=== PATIENT | male | born 1950 | race Caucasian/White ===

== ENCOUNTER 2018-03-14 17:46 | Emergency (ER) | payer MEDICARE, BC, SELFPAY ==
[2018-03-14 17:47] VITALS: BP 164/94; PULSE 65; RESP 18; TEMP 37.1; O2SAT 97; BMI 43.7
--- NOTE | 2018-03-14 18:19 | CT_ITS ---
STUDY: CT ABDOMEN AND PELVIS WITHOUT CONTRAST REASON FOR EXAM: Male, 67 years old. Right flank pain, status post colectomy RADIATION DOSAGE (If Supplied By Facility): CTDIvol = ( 30.39 ) mGy, DLP = ( 1571.52 ) mGycm TECHNIQUE: Transaxial images were obtained from the dome of the diaphragm to the symphysis pubis without oral contrast, and without intravenous contrast. Sagittal and coronal images were reconstructed. Individualized dose optimization techniques were used for this CT. COMPARISON: None. FINDINGS: There is a 5 mm right lower lobe nodule axial image 1 the heart size is within normal limits. Coronary arterial calcifications are seen. There is a large epicardial fat pad. Normal liver. Normal gallbladder and extrahepatic biliary system. Normal spleen. Normal pancreas. Normal bilateral adrenal glands. There is a 1.5 cm right renal cyst. Right renal vascular calcifications are present. There is right perirenal fatty stranding. There is no right hydronephrosis. There is slight prominence of the right ureter to the level of the UVJ. No obstructing calculus was identified. Left renal vascular calcifications are present. There are several additional nonobstructing left renal calculi measuring up to 4 mm. Normal visualized stomach. Normal small intestine. There is scattered colonic diverticuli with no evidence of associated diverticulitis. There is non-visualization of the appendix. An aortoiliac endograft is present. There is aneurysmal dilatation of the infrarenal abdominal aorta measuring up to 5.9 cm in diameter. There is no evidence of leakage. Normal inferior vena cava. Normal retroperitoneum. Normal urinary bladder. Prostatic calcifications are present. The seminal vesicles and seminal vesicle angles appear normal. There are bilateral fat-containing inguinal hernias, left side larger than right. There is a small fat-containing umbilical hernia. There are diffuse degenerative changes of the visualized thoracolumbar spine. CT/Abdomen/Pelvis without Cont IMPRESSION: 1. 1.5 cm right renal cyst. Right renal vascular calcifications are present. There is right perirenal fatty stranding. There is slight prominence of the right ureter to the level of the UVJ. Nonobstructing calculus was identified. 2. Several nonobstructing left renal calculi measuring up to 4 mm. 3. Scattered colonic diverticuli with no evidence of associated diverticulitis. 4. Infrarenal abdominal aortic aneurysm measuring up to 5.9 cm in diameter. There is an aortoiliac endograft. There is no evidence of aneurysmal leakage. 5. Prostatic calcifications. 6. Bilateral fat-containing inguinal hernias, as well as small fat-containing umbilical hernia. 7. Is no evidence of free intra-abdominal or intrapelvic air or fluid. Electronically Signed: Krishna Quiñones MD at 19:10 EDT , Service support ,
[2018-03-14] MEDS: Ondansetron 4 MG/2 ML Vial IV (18:25)
[2018-03-14] MEDS: morphine 8 MG/ML Syringe IV (18:25)
[2018-03-14] MEDS: 0.9% Normal Saline 1,000 ML 1000 ML IV (18:26)
[2018-03-14 18:32] LABS: Bacteria 0 SEEN /hpf (None Seen); Mucous, Urine 0 SEEN /hpf (<or=2+); Red Blood Cells-Urine 0 SEEN /hpf (0-5); White Blood Cells 0 SEEN /hpf (0-5)
[2018-03-14 18:35] LABS: Absolute Lymphocyte Count 1.33 X10^3/ul (0.83-4.51); Absolute Neutrophil Count 7.1 X10^3/uL (2.0-7.7); Basophil# 0.03 X10^3/uL; Basophil% 0.3 % (0-1); Eosinophil# 0.25 X10^3/uL; Eosinophils% 2.6 % (0-5); Hematocrit 43.2 % (40-54); Hemoglobin 14.1 g/dl (13.0-16.5); Lymphocyte # 1.33 X10^3/ul (4.0); Lymphocyte % 14.1 % (19-41); Mean Corp Hgb Conc 32.6 g/gl (32-36); Mean Corpuscular Volume 88.9 fL (80-94); Monocyte# 0.76 X10^3/uL; Monocyte% 8.1 % (0-10); Neutrophil # 7.06 X10^3/uL (2.7-7.7); Neutrophil % 74.8 % (47-70); POSITIVE COUNT NO; POSITIVE DIFFERENTIAL NO; POSITIVE MORPHOLOGY NO; Platelet Count 258 K/mm3 (150-450); RBC Distribution Width CV 13.6 % (11.6-14.6); RBC Distribution Width SD 44.3 fl (35.1-43.9); Red Blood Count 4.86 M/mm3 (4.6-6.2); White Blood Count 9.4 K/mm3 (4.4-11.0)
[2018-03-14 18:44] LABS: Color, Urine Yellow (Yellow); Glucose, Dipstick Normal (Normal); Ketone-Dipstick Negative (Negative); Leukocyte Esterase-Dipstick Negative /ul (Negative); Nitrite-Dipstick Negative (Negative); Occult Blood-Urine Negative /ul (Negative); Protein-Dipstick 30 mg/dl (Negative); Urine Bilirubin Dipstick Negative (Negative); Urine Clarity Sl. Cloudy (Clear); Urine Urobilinogen Normal (Normal)
[2018-03-14 18:45] LABS: AST(SGOT) 14 U/L (15-37); Alanine Aminotransfer ALT/SGPT 15 U/L (16-61); Albumin, Serum 3.8 g/dL (3.2-5.0); Alkaline Phosphatase 57 U/L (45-117); Anion Gap 8 (5-15); BUN 33 mg/dL (7-18); BUN/Creat Ratio 19.4 RATIO (10-20); Bilirubin, Direct 0.08 mg/dL (0.00-0.30); Calcium,Total 9.5 mg/dL (8.5-10.1); Chloride 104 mmol/L (98-107); EST Glomerular Filtration Rate 43 mL/min (>60); Est Glom Filt Rate - Afr Amer 52 mL/min (>60); Estimated Creatinine Clearance 44.13 ml/min; Globulin 3.8 g/dL (2.2-4.2); Glucose 139 mg/dL (74-106); Lipase 156 U/L (73-393); Potassium 3.9 mmol/L (3.5-5.1); Protein, Total 7.6 g/dL (6.4-8.2); Sodium Level 139 mmol/L (136-145)
[2018-03-14 19:06] LABS: Squamous Epithelial Cells - UA 0-5 SEEN /hpf (0-5)
--- NOTE | 2018-03-14 20:02 | ED.VISSUMM ---
- ER Visit Summary Date of Service: 03/14/18 Chief Complaint: Right flank pain History of Present Illness: The patient is a 67 M history of CAD, quintuple bypass, syi-sdmrxfy-zhjrqdkex diabetes failure and prior diverticulitis. He has had a prior AAA that was stented. Complaining of right flank pain today around 1530. Associated nausea no vomiting or diarrhea. No fever. No dysuria. No abdominal or flank trauma. States pains in his right flank radiating to his groin. Physical Examination: Older male vital signs are stable afebrile. He does not look septic or toxic. He is complaining of right flank pain. HEENT exam unremarkable. Lungs clear to auscultation bilaterally. Heart regular rate and rhythm no murmur. Abdomen soft nondistended normal bowel sounds. No peritoneal signs. Very minimal right flank tenderness. No signs of obstruction. No hernias or masses. He is moving all 4 extremities are neurovascular intact. Back is nontender. Neurologically is awake and alert without focal motor deficits. Test Results: CBC normal. Chemistries unremarkable except for creatinine of 1.7 and BUN of 33. I do not have any old labs available for comparison I discussed the creatinine level with the patient and he will follow-up with his primary care physician or [facility] to see what his prior creatinine levels were. Liver enzymes normal. Lipase normal. UA normal. No signs of infection or blood. CT flank was obtained they do not see an obvious kidney stone. He has a known AAA with the graft but there is no leakage. His right ureter as prominence at the right UVJ but they did not see a specific stone. In light that is pain-free now he may have passed a kidney stone is now in the bladder. That has not been identified. Emergency Department Course and Treatment: He was treated with IV fluids times a liter morphine and Zofran. On repeat exam at both 1920 100 he is completely pain-free. He did urinate in the toilet and it was blood-tinged. Treatment Plan: [place] home pack for pain. Patient will be treated as a passed kidney stone. Disposition: Discharge Impression: Acute right flank pain secondary to suspected passed ureteral calculi. Known history of AAA with stent History of zcy-lbwhzdi-wetggqthc diabetes This note was generated with [employer] dictation software. It may contain incorrect words, spelling, and punctuation that were not noted in review of the chart prior to signing ED Disposition - Plan for ED Patient: Chief Complaint: Flank Pain Referrals: Brad Renner MD [Primary Care Provider] -
--- NOTE | 2018-03-14 20:05 | ED.DCSUM_ITS ---
- ER Visit Summary Date of Service: 03/14/18 Chief Complaint: Right flank pain History of Present Illness: The patient is a 67 M history of CAD, quintuple bypass, wwx-khczzcn-lksfqlenc diabetes failure and prior diverticulitis. He has had a prior AAA that was stented. Complaining of right flank pain today around 1530. Associated nausea no vomiting or diarrhea. No fever. No dysuria. No abdominal or flank trauma. States pains in his right flank radiating to his groin. Physical Examination: Older male vital signs are stable afebrile. He does not look septic or toxic. He is complaining of right flank pain. HEENT exam unremarkable. Lungs clear to auscultation bilaterally. Heart regular rate and rhythm no murmur. Abdomen soft nondistended normal bowel sounds. No peritoneal signs. Very minimal right flank tenderness. No signs of obstruction. No hernias or masses. He is moving all 4 extremities are neurovascular intact. Back is nontender. Neurologically is awake and alert without focal motor deficits. Test Results: CBC normal. Chemistries unremarkable except for creatinine of 1.7 and BUN of 33. I do not have any old labs available for comparison I discussed the creatinine level with the patient and he will follow-up with his primary care physician or [facility] to see what his prior creatinine levels were. Liver enzymes normal. Lipase normal. UA normal. No signs of infection or blood. CT flank was obtained they do not see an obvious kidney stone. He has a known AAA with the graft but there is no leakage. His right ureter as prominence at the right UVJ but they did not see a specific stone. In light that is pain-free now he may have passed a kidney stone is now in the bladder. That has not been identified. Emergency Department Course and Treatment: He was treated with IV fluids times a liter morphine and Zofran. On repeat exam at both 1920 100 he is completely pain-free. He did urinate in the toilet and it was blood-tinged. Treatment Plan: [place] home pack for pain. Patient will be treated as a passed kidney stone. Disposition: Discharge Impression: Acute right flank pain secondary to suspected passed ureteral calculi. Known history of AAA with stent History of unz-ubdamkw-xhwcgcnyr diabetes This note was generated with [employer] dictation software. It may contain incorrect words, spelling, and punctuation that were not noted in review of the chart prior to signing ED Disposition - Plan for ED Patient: Chief Complaint: Flank Pain Referrals: Brad Renner MD [Primary Care Provider] -
--- NOTE | 2018-03-14 20:06 | ED.DEP ---
ED Disposition - Plan for ED Patient: Disposition: Home or Assisted Living Chief Complaint: Flank Pain Instructions: ED Flank Pain Uncertain Cause Referrals: Brad Renner MD [Primary Care Provider] - As soon as possible Additional Instructions: [place] as needed for pain. Plenty of fluids and rest. No obvious findings on your CAT scan. This may be secondary to a small stone that you passed into the bladder we could not identify. Also your creatinine today was 1.7. I do not have any old levels compare that to you need to follow-up your primary care physician with the [facility] to see where that is compared to your prior creatinine levels.
[2018-03-14] MEDS: HYDROcodone Bitartrate/Apap 5/325 Tablet PO (20:17)
[2018-03-14 20:20] VITALS: BP 162/78; PULSE 79; RESP 18; O2SAT 93
== END 2018-03-14 20:21 | disposition home or self-care (01) ==
PROVIDERS: Emergency Provider Emergency Medicine; Family Provider Family Medicine; PCP Family Medicine
DX: N20.1 Calculus of ureter (principal); N28.9 Disorder of kidney and ureter, unspecified; E11.9 Type 2 diabetes mellitus without complications; I25.10 Atherosclerotic heart disease of native coronary artery without angina pectoris; Z95.1 Presence of aortocoronary bypass graft; Z95.828 Presence of other vascular implants and grafts; Z86.79 Personal history of other diseases of the circulatory system; Z79.84 Long term (current) use of oral hypoglycemic drugs; Z79.82 Long term (current) use of aspirin; Z79.01 Long term (current) use of anticoagulants; Z79.899 Other long term (current) drug therapy
CPT/HCPCS: 74176; 80048; 80076; 81001; 83690; 85025; 96361; 96374; 96375; 99284; J7030; A4216; J2405

== ENCOUNTER 2018-11-06 01:19 | Emergency (ER) | payer MEDICARE, BC, SELFPAY ==
[2018-11-06 01:20] VITALS: BP 177/97; PULSE 71; RESP 18; TEMP 36.7; O2SAT 95; BMI 43.7
--- NOTE | 2018-11-06 01:41 | ED.VISSUMM ---
- ER Visit Summary Date of Service: 11/06/18 Chief Complaint: [] Complaining of flank pain History of Present Illness: The patient is a 68 M left-sided flank pain that started at 8:30 PM yesterday gradual onset continuous. It is a sharp pain. Current severity is moderate. No nausea vomiting or diarrhea. No home treatment. He was seen for similar pain in February of last year. He had labs and a CAT scan done. There is no kidney stone but they suspect that he passed one at that time as his pain resolved in the department. He has a history of AAA that is stented in the past. He had a partial sigmoidectomy secondary to diverticulitis. His appendix has been removed. Physical Examination: [] Vital signs reviewed General: Well-nourished well-developed Head: Normocephalic atraumatic Eyes: Pupils equal round and reactive to light extraocular movements intact ENT: TMs clear no hemotympanum no trauma Neck: Nontender full range of motion Cardiovascular: Regular rate rhythm no murmurs normal S1-S2 Respiratory: No distress clear to auscultation bilaterally chest nontender Abdomen: Soft nontender nondistended normal bowel sounds no masses Back: Nontender no CVA tenderness Extremities: Nontender active range of motion ?4 extremities no trauma Skin: Normal color no trauma Neuro alert oriented cranial nerves II through XII intact normal strength sensation reflexes Test Results: [] Emergency Department Course and Treatment: [] IV established patient given morphine and Zofran IV fluids. Lab work and CT abdomen pelvis obtained CT abdomen pelvis shows a left-sided kidney stone at the ureterovesical junction with mild left hydronephrosis. Lab work obtained shows blood in his urine with 25-50 RBCs with no infection. Creatinine is 1.4 down from 1.7. Patient felt better after treatment. Given a second dose of morphine. Pain is under control. He will be discharged to follow-up with urology. I do not think he needs to be admitted. He should pass this as it is right in his bladder. Will be given Percocet for home as well as Zofran. His AAA stent remains intact Treatment Plan: [] Disposition: [] Impression: [] Left-sided kidney stone with hydronephrosis This note was generated with [employer] dictation software. It may contain incorrect words, spelling, and punctuation that were not noted in review of the chart prior to signing ED Disposition - Plan for ED Patient: Referrals: Brad Renner MD [Primary Care Provider] -
[2018-11-06 01:51] LABS: Absolute Lymphocyte Count 0.94 X10^3/ul (0.83-4.51); Absolute Neutrophil Count 4.5 X10^3/uL (2.0-7.7); Basophil# 0.04 X10^3/uL; Basophil% 0.6 % (0-1); Eosinophil# 0.24 X10^3/uL; Eosinophils% 3.8 % (0-5); Hematocrit 44.1 % (40-54); Hemoglobin 14.5 g/dl (13.0-16.5); Lymphocyte # 0.94 X10^3/ul (4.0); Lymphocyte % 14.9 % (19-41); Mean Corp Hgb Conc 32.9 g/gl (32-36); Mean Corpuscular Hgb 29.5 pg (27.0-32.0); Mean Corpuscular Volume 89.6 fL (80-94); Mean Platelet Vol. 10.2 fl (6.2-12.0); Monocyte% 9.5 % (0-10); Neutrophil # 4.48 X10^3/uL (2.7-7.7); POSITIVE COUNT NO; POSITIVE DIFFERENTIAL NO; POSITIVE MORPHOLOGY NO; Platelet Count 232 K/mm3 (150-450); RBC Distribution Width CV 13.5 % (11.6-14.6); RBC Distribution Width SD 43.2 fl (35.1-43.9); Red Blood Count 4.92 M/mm3 (4.6-6.2); White Blood Count 6.3 K/mm3 (4.4-11.0)
[2018-11-06] MEDS: Morphine 4 MG/ML Syringe IV ×2 (01:52→03:10)
[2018-11-06] MEDS: 0.9% Normal Saline 1,000 ML 250 ML IV (01:52)
[2018-11-06] MEDS: Ondansetron 4 MG/2 ML Vial IV (01:52)
[2018-11-06 02:00] LABS: Anion Gap 6 (5-15); BUN 18 mg/dL (7-18); BUN/Creat Ratio 12.2 RATIO (10-20); Calcium,Total 8.9 mg/dL (8.5-10.1); Chloride 110 mmol/L (98-107); Creatinine, Serum 1.48 mg/dL (0.70-1.30); EST Glomerular Filtration Rate 50 mL/min (>60); Est Glom Filt Rate - Afr Amer 61 mL/min (>60); Estimated Creatinine Clearance 50.01 ml/min; Glucose 173 mg/dL (74-106); Potassium 3.9 mmol/L (3.5-5.1); Sodium Level 143 mmol/L (136-145)
--- NOTE | 2018-11-06 02:13 | ED.RN ---
pT WAS MEDICATED AT 0150. HOWEVER, PREVIOUS NURSE WAS STILL SIGNED IN BUT LEFT THE BUILDING. DIRECT SERVICE PROVIDER AWARE.
--- NOTE | 2018-11-06 02:30 | CT_ITS ---
STUDY: CT ABDOMEN AND PELVIS WITHOUT CONTRAST REASON FOR EXAM: Male, 68 years old. Right-sided abdominal pain. RADIATION DOSAGE (If Supplied By Facility): CTDIvol = ( 24.18 ) mGy, DLP = ( 1195.98 ) mGycm TECHNIQUE: Transaxial images were obtained from the dome of the diaphragm to the symphysis pubis without oral contrast, and without intravenous contrast. Sagittal and coronal images were reconstructed. Individualized dose optimization techniques were used for this CT. COMPARISON: CT scan 03/14/2018. FINDINGS: The visualized lung bases are unremarkable. The visualized portions of the heart are within normal limits. There are coronary artery calcifications. There is decreased attenuation of the liver consistent with steatosis. Normal gallbladder and extrahepatic biliary system. There is mild splenomegaly. Normal pancreas. There is a 1.3 cm, circumscribed, smooth, low attenuation right adrenal mass, consistent with an adrenal adenoma. Normal left adrenal gland. There are arteriovascular calcifications in both kidneys. There is a small right renal cyst. There is no demonstrated right urinary calculus or hydronephrosis. As seen on axial images 147-149 and sagittal images 105-106,, there is a 5 mm wide distal left ureteral calculus, approximately 3 cm ureterovesical junction. There is mild hydronephrosis of the left kidney. Normal visualized stomach. Normal small intestine. There are multiple colonic diverticula consistent with diverticulosis. There is non-visualization of the appendix. There is no evidence for appendicitis. There is an infrarenal abdominal aortic aneurysm with maximal AP and transverse diameters of 5.9 x 5.6 cm, not significantly different from the previous exam. There is an aortic-bilateral iliac artery stent. There are bilateral renal arterial stents.. Normal inferior vena cava. Normal retroperitoneum. Grossly normal urinary bladder. Evaluation of the urinary bladder is limited by nondistention.. There is a left inguinal hernia which contains fat, but no bowel. There are diffuse degenerative changes of the visualized lumbar spine. CT/Abdomen/Pelvis without Cont IMPRESSION: 5 mm wide distal left ureteral calculus near the UVJ. There is associated mild left hydronephrosis. No other evidence for acute pathology. Small right renal cyst. Previous placement of aortic-bilateral iliac artery stents for treatment of an infrarenal abdominal aortic aneurysm. The aneurysm is stable in size. Bilateral renal artery stents. Small right adrenal adenoma, stable in appearance. Fatty liver. Mild splenomegaly. Colonic diverticulosis, without evidence for acute diverticulitis. Electronically Signed: Adam Flores MD at 3:26 EST , Service support ,
[2018-11-06 02:51] LABS: Bacteria 0 SEEN /hpf (None Seen); Mucous, Urine 0 SEEN /hpf (<or=2+); Squamous Epithelial Cells - UA 0 SEEN /hpf (0-5)
[2018-11-06 02:52] LABS: Color, Urine Yellow (Yellow); Glucose, Dipstick 50 mg/dl (Normal); Ketone-Dipstick Negative (Negative); Leukocyte Esterase-Dipstick 25 /ul (Negative); Nitrite-Dipstick Negative (Negative); Occult Blood-Urine 250 /ul (Negative); Protein-Dipstick 30 mg/dl (Negative); Urine Bilirubin Dipstick Negative (Negative); Urine Clarity Cloudy (Clear); Urine Urobilinogen Normal (Normal)
[2018-11-06 03:00] LABS: Red Blood Cells-Urine 25-50 SEEN /hpf (0-5); White Blood Cells 0-5 SEEN /hpf (0-5)
--- NOTE | 2018-11-06 03:37 | ED.DEP ---
ED Disposition - Plan for ED Patient: Disposition: Home or Assisted Living Instructions: ED Stone Renal W Colic Prescriptions: Oxycodone HCl/Acetaminophen [Percocet 5/325] 1 - 2 tab PO Q6H PRN PRN 3 Days #12 tab PRN Reason: Pain Ondansetron [Zofran Odt] 4 mg PO Q8H PRN PRN #10 tab PRN Reason: Nausea Referrals: Brad Renner MD [Primary Care Provider] - Martin Cordon MD [STAFF PHYSICIAN] -
[2018-11-06 03:43] VITALS: BP 164/73; PULSE 61; PULSE 62; RESP 16; O2SAT 95
== END 2018-11-06 03:51 | disposition home or self-care (01) ==
PROVIDERS: Emergency Provider Emergency Medicine; Family Provider Family Medicine; PCP Family Medicine
DX: N13.2 Hydronephrosis with renal and ureteral calculous obstruction (principal); I25.10 Atherosclerotic heart disease of native coronary artery without angina pectoris; E11.9 Type 2 diabetes mellitus without complications; E66.9 Obesity, unspecified; Z68.41 Body mass index [BMI] 40.0-44.9, adult; Z95.1 Presence of aortocoronary bypass graft; Z79.82 Long term (current) use of aspirin; Z79.84 Long term (current) use of oral hypoglycemic drugs; Z79.899 Other long term (current) drug therapy; Z87.891 Personal history of nicotine dependence
CPT/HCPCS: 74176; 80048; 81001; 85025; 96361; 96374; 96375; 96376; 99282; J7030; A4216; J2405

== ENCOUNTER → 2018-11-28 12:28 | Outpatient (CLI) | payer MEDICARE, BC, SELFPAY ==
[2018-11-06 01:20] VITALS: BMI 43.7
--- NOTE | 2018-11-28 12:48 | CT_ITS ---
STUDY: CT ABDOMEN AND PELVIS WITHOUT CONTRAST REASON FOR EXAM: Male, 68 years old. Follow-up renal stone. RADIATION DOSAGE (If Supplied By Facility): CTDIvol = ( 24.17 ) mGy, DLP = ( 1237.68 ) mGycm TECHNIQUE: Transaxial images were obtained from the dome of the diaphragm to the symphysis pubis without oral contrast, and without intravenous contrast. Sagittal and coronal images were reconstructed. Individualized dose optimization techniques were used for this CT. COMPARISON: 11/06/2018. FINDINGS: The visualized lung bases are unremarkable. The visualized portions of the heart are within normal limits. Normal liver. Normal gallbladder and extrahepatic biliary system. Normal spleen. Normal pancreas. Normal bilateral adrenal glands. No acute abnormality of the right kidney. Stable right vascular calcifications. No hydronephrosis. Left kidney also shows vascular calcifications. There is a tiny nonobstructing stone in lower pole. It shows mild hydronephrosis and mild to moderate hydroureter down to a 5 mm left UVJ stone. This stone is further inferior than on the previous study. Evaluation of the GI tract is limited by absence of oral contrast. Cannot exclude stomach wall thickening. No dilated loops of bowel or evidence for obstruction. Cannot exclude segmental thickening of the renteria of the small or large bowel. Cannot exclude enteritis or colitis. Moderate diffuse fecal retention. Diverticulosis without definite diverticulitis. Appendix is not definitely seen. Stable appearance of treated abdominal aortic aneurysm. Normal inferior vena cava. Normal retroperitoneum. Normal urinary bladder. There are prostatic calcifications. There is a left-sided inguinal hernia containing adipose tissue. There are diffuse degenerative changes of the visualized lumbar spine. CT/Abdomen/Pelvis without Cont IMPRESSION: Previously described left ureteral calculus has migrated down to the left UVJ. Persistent mild left hydronephrosis and moderate left hydroureter. No other changes. Electronically Signed: Gold Khanna MD at 18:20 EST , Service support ,
== END ==
PROVIDERS: Family Provider Family Medicine; PCP Family Medicine; Referring Provider Family Medicine; Visit Provider Family Medicine
DX: N13.2 Hydronephrosis with renal and ureteral calculous obstruction (principal)
CPT/HCPCS: 74176

== ENCOUNTER → 2018-11-29 14:50 | Outpatient (CLI) | payer MEDICARE, BC, SELFPAY ==
[2018-11-06 01:20] VITALS: BMI 43.7
--- NOTE | 2018-11-29 14:50 | CALC_PTH ---
PATIENT: ABAD JUNE LOC: [facility] U#:[id number] AGE/SX: 74/M ROOM: RE11/29/[address]: Dr. Martin Cordon MD : 1950 BED: DIS: SPEC #: [id number] RECD: 11/30/18 08:58 STATUS: AALIYAH RICH #: [id number] LUCIE: 11/29/18 14:[address]: Martin Cordon DEPT: SURGICAL PATHOLOGY RECD BY: Chapincito Bullock ENTERED: 11/30/18 08:58 SP TYPE: Calculi OTHR DR: Dr. Brad Renner MD Tissues: CALCULI Procedures: Surgery Specimen Level I HEADER OPERATION: Stone analysis PRE-OP DIAGNOSIS: N20.0 TISSUE SUBMITTED: Calculus GROSS DIAGNOSIS Renal calculus, removal: Unremarkable calculus (gross diagnosis only). AM:bebeto 12/03/18 COMMENT The calculus is submitted in its entirety for chemical stone analysis. The results from this study will be reported separately. GROSS DESCRIPTION Received is one container labeled with the patient's name and designated calculus. The specimen consists of a single irregular fragment of roberts-yellow calculus measuring 0.5 x 0.3 x 0.2 cm. The specimen is submitted for stone analysis. / AM:bebeto 11/30/18 CPT: 68296
[2018-12-05 20:07] LABS: Ca Oxalate, Monohydrate 97 % (.); Size 6x5x3 mm (.)
== END ==
PROVIDERS: Family Provider Family Medicine; PCP Family Medicine; Referring Provider Urology; Visit Provider Urology
DX: N20.0 Calculus of kidney (principal)
CPT/HCPCS: 82360; 88300

== ENCOUNTER 2019-04-02 08:53 | Observation (INO) | payer MEDICARE, BC, SELFPAY ==
[2019-04-02] VITALS (14 sets, daily range): BP systolic 124–188; BP diastolic 66–93; PULSE 60–73; RESP 16–20; TEMP 36.2–36.9; O2SAT 95–98; BMI 43.7; BMI 45.3; BMI 45.4
--- NOTE | 2019-04-02 09:18 | ED.VISSUMM ---
- ER Visit Summary Date of Service: 04/02/19 Chief Complaint: Possible stroke History of Present Illness: The patient is a 68 M who presents the emergency after being sent here with a possible stroke. Patient states that on Monday he had a left temporal headache. He states he felt poorly all day. He had the noticed a facial droop drooling and occasionally difficulty speaking. He states that he has had a intermittent left temporal headache since then. His facial droop has not improved. Denies any visual arm or leg symptoms. No sensory changes. No rashes. He is on Plavix following a cardiac bypass surgery. He is also had AAA repair. He notes peripheral vascular disease. Physical Examination: Afebrile vital signs stable Gen: Well-nourished well-developed Head: Normocephalic atraumatic Eyes: Perrl EOMI ENT: TMs clear no rhinorrhea moist mucous membranes Neck: Supple no lymphadenopathy no JVD nontender CVS: Regular rate rhythm no murmurs normal S1-S2 Respiratory: No distress clear to auscultation bilaterally chest nontender Abdomen: Soft nontender nondistended normal bowel sounds no masses Back: Nontender Extremity: Nontender no edema Skin: Normal color no rash Neuro: alert orientated ?3 CN II-XII intact NIH score of 3. One point for dysarthria and 2 points for right sided facial droop. He can wrinkle his forehead. He can close his eyelids appropriately bilaterally. Psych: Normal affect normal mood Test Results: Basic labs are negative. Creatinine 1.52. CT head negative chest x-ray negative. Emergency Department Course and Treatment: Repeat examination the patient no longer has a facial droop. He is no longer drooling and he no longer has any difficulty clearing secretions. Difficult to say what this would have been to give him 3 days of a facial droop with no resolution. Will admit for observation. Impression: 1. Right facial droop This note was generated with [employer] dictation software. It may contain incorrect words, spelling, and punctuation that were not noted in review of the chart prior to signing ED Disposition - Plan for ED Patient: Referrals: Brad Renner MD [Primary Care Provider] -
--- NOTE | 2019-04-02 09:22 | CT_ITS ---
STUDY: CT BRAIN WITHOUT CONTRAST REASON FOR EXAM: Male, 68 years old. Right-sided facial droop RADIATION DOSAGE (If Supplied By Facility): CTDIvol = ( 44.99 ) mGy, DLP = ( 846.73 ) mGycm TECHNIQUE: Transaxial CT imaging of the brain was performed without administration of intravenous contrast material. Individualized dose optimization techniques were used for this CT. COMPARISON: No relevant priors. FINDINGS: Normal soft tissue structures. Normal calvarium. Normal size ventricles and extra-axial spaces for the patient's age. Normal white matter tracts of the cerebral hemispheres. Normal basal ganglia and thalami. Normal brainstem. Normal cerebellum. There is no intracranial hemorrhage. There are no findings of an acute ischemic infarction. Normal visualized paranasal sinuses. CT/Brain/Head without Contrast IMPRESSION: Normal unenhanced CT scan of the brain. Electronically Signed: Pérez Thomas MD at 10:34 EDT Tel , Service support ,
--- NOTE | 2019-04-02 09:22 | EKG12_ITS ---
Test Reason : HTN Blood Pressure : / mmHG Vent. Rate : 063 BPM Atrial Rate : 063 BPM P-R Int : 140 ms QRS Dur : 080 ms QT Int : 396 ms P-R-T Axes : 041 076 159 degrees QTc Int : 405 ms Normal sinus rhythm T wave abnormality, consider lateral ischemia Abnormal ECG Confirmed by ALISSON ZAMORA ([id number]), editor in chief CAMILLE SANDOVAL ([id number]) on 04/04/2019 1:45:40 PM Referred By: SKIP Confirmed By:ALISSON ZAMORA
--- NOTE | 2019-04-02 09:22 | RAD_ITS ---
STUDY: X-RAY CHEST REASON FOR EXAM: Male, 68 years old. Weakness. Coronary artery disease. TECHNIQUE: Single AP portable view of the chest. COMPARISON: None. FINDINGS: EKG electrodes are seen. The lungs are clear and expanded. There is no demonstrated pleural abnormality. Sternal cerclage wires and vascular clips are present from a prior sternotomy and coronary artery bypass graft procedure (CABG). Normal mediastinum and librado. Normal visualized pulmonary arteries. Normal visualized aortic arch and descending thoracic aorta. Normal visualized thoracic spine. Normal visualized ribs, clavicles, and shoulders. There is no demonstrated abnormality of the visualized soft tissue structures of the upper abdomen. RAD/Chest 1 View IMPRESSION: No acute abnormality is seen. Electronically Signed: Demetrio Phoenix, at 9:57 EDT , Service support ,
--- NOTE | 2019-04-02 09:24 | NURSING ---
NO OLD EKGS
[2019-04-02 10:15] LABS: Bedside Glucose 188 mg/dL (70-110)
[2019-04-02 10:23] LABS: International Normalized Ratio 0.9; Prothrombin Time (Protime)PT. 12.4 SECONDS (11.7-14.9)
[2019-04-02 10:24] LABS: Absolute Lymphocyte Count 0.75 X10^3/ul (0.83-4.51); Absolute Neutrophil Count 4.6 X10^3/uL (2.0-7.7); Basophil# 0.04 X10^3/uL; Basophil% 0.7 % (0-1); Eosinophil# 0.22 X10^3/uL; Eosinophils% 3.6 % (0-5); Hematocrit 45.9 % (40-54); Hemoglobin 14.9 g/dl (13.0-16.5); Lymphocyte # 0.75 X10^3/ul (4.0); Lymphocyte % 12.3 % (19-41); Mean Corp Hgb Conc 32.5 g/gl (32-36); Mean Corpuscular Hgb 28.4 pg (27.0-32.0); Mean Corpuscular Volume 87.4 fL (80-94); Mean Platelet Vol. 10.2 fl (6.2-12.0); Monocyte# 0.47 X10^3/uL; Monocyte% 7.7 % (0-10); Neutrophil # 4.63 X10^3/uL (2.7-7.7); Neutrophil % 75.5 % (47-70); Partial Thromboplast Time 27.3 Seconds (24.1-36.2); Platelet Count 236 K/mm3 (150-450); RBC Distribution Width CV 13.6 % (11.6-14.6); RBC Distribution Width SD 43.3 fl (35.1-43.9); Red Blood Count 5.25 M/mm3 (4.6-6.2); White Blood Count 6.1 K/mm3 (4.4-11.0)
[2019-04-02 10:25] LABS: POSITIVE COUNT NO; POSITIVE DIFFERENTIAL NO; POSITIVE MORPHOLOGY NO
[2019-04-02 10:36] LABS: Anion Gap 8 (5-15); BUN 17 mg/dL (7-18); BUN/Creat Ratio 11.2 RATIO (10-20); Calcium,Total 9.1 mg/dL (8.5-10.1); Chloride 107 mmol/L (98-107); Creatinine, Serum 1.52 mg/dL (0.70-1.30); EST Glomerular Filtration Rate 49 mL/min (>60); Est Glom Filt Rate - Afr Amer 59 mL/min (>60); Estimated Creatinine Clearance 48.69 ml/min; Glucose 190 mg/dL (74-106); Potassium 4.3 mmol/L (3.5-5.1); Sodium Level 144 mmol/L (136-145)
--- NOTE | 2019-04-02 11:01 | NURSING ---
DR HA IN WITH PATIENT
[2019-04-02] MEDS: Aspirin E.C. 325 MG Tablet PO (11:34)
--- NOTE | 2019-04-02 11:48 | HP.PCM_ITS ---
Problem List (1) CVA (cerebral vascular accident) Status: Acute History of Present Illness Date of Admission: 04/02/19 Chief Complaint: right facial weakness The patient is a 68 year old M presents with 2-day history of right facial droop. Also had slurred speech and drooling. Presented to the emergency room where he was noted to have right facial droop and underwent stroke work-up which was unremarkable. When checked on him again, the facial droop had resolved. Feels he just involves his lower face not forehead. Patient is never had a stroke before. Patient denied any right-sided weakness otherwise. [] Past Medical History Medical History: Medical History (Last Updated 04/02/19 @ 11:51 by Vishal Polanco DO) CAD (coronary artery disease) I25.10 DM2 (diabetes mellitus, type 2) E11.9 SACHA (obstructive sleep apnea) G47.33 PAD (peripheral artery disease) I73.9 HTN (hypertension) I10 Allergies Kkcmgwm-Alf-Tle Reductase Inhibitor Allergy (Verified 04/02/19 08:54) Pain in joints Home Medications: Ambulatory Orders Medication Instructions Recorded Aspirin E.C. [Ecotrin] 81 mg PO DAILY@0800 03/14/18 Cholecalciferol (Vitamin D3) 2,000 unit PO DAILY 03/14/18 [Vitamin D3] Cilostazol 100 mg PO BID 03/14/18 Clopidogrel Bisulfate [Plavix] 75 mg PO DAILY 03/14/18 Ezetimibe [Zetia] 10 mg PO DAILY 03/14/18 Fenofibrate Nanocrystallized 160 mg PO DAILY 03/14/18 [Triglide] Lisinopril [Zestril] 30 mg PO DAILY 03/14/18 Metoprolol Tartrate [Lopressor 50 mg PO BID 03/14/18 (Beta Abena)] Niacin 500 mg PO DAILY 03/14/18 Triamterene 37.5MG/Hctz 25MG 1 cap PO DAILY 03/14/18 [Dyazide (G)] metFORMIN HCl [Glucophage] 1,000 mg PO BIDCM 03/14/18 Tamsulosin HCl [Flomax] 0.4 mg PO DAILY 11/06/18 Surgical History: Surgical History (Last Updated 04/02/19 @ 11:52 by Vishal Polanco DO) Hx of CABG Z95.1 S/P peripheral artery angioplasty with stent placement Z95.820 Smoking Status: Former smoker Tobacco Use: Non-smoker Alcohol: Rare Drugs: None - *Family History Maternal History Items: - - no CVA Review of Systems Constitutional: Denies: Chills, Fever, Weight Change Eyes: Denies: Blurred vision, Double vision HEENT: Denies: Head Aches, Sinus Congestion, Sinus Drainage Cardiovascular: Denies: Chest Pain, Palpitations Respiratory: Denies: Cough, Shortness of breath at rest, Sputum production Gastrointestinal: Denies: Abdominal Pain, Nausea, Vomiting Genitourinary: Denies: Dysuria Musculoskeletal: Denies: Joint Pain, Joint Tenderness Skin: Denies: Rash, Wounds Neurological: Reports: Slurred speech, Focal weakness, Headaches. Denies: Numbness, Tingling Psychiatric: Denies: Anxiety, Depression Hematologic/ Lymphatic: Denies: Easy Bruising, Easy Bleeding, Hx of blood clot Comment: A 10 point review of systems were negative except as mentioned in the history of present illness and the other review of systems. VTE Information - Inpt Only VTE Present on Admission: No VTE Mechan Device Prophylaxis: None VTE Pharm Prophylaxis ordered?: No Reason prophylaxis not ordered:: Procedure Not Indicated Patient Problems: Active and Suspected Problems (Last Updated 04/02/19 @ 11:51 by Vishal Polanco DO) CVA (cerebral vascular accident) (Acute) - Physical Exam General: Alert, Oriented x3, Cooperative, No apparent distress HEENT: Atraumatic, PERRLA, EOMI, Normocephalic Oral: Moist Mucosa, No Gingival or Mucosal Lesions/ Ulcerations Neck: Negative Carotid Bruits, No Nodes, Thyroid Normal Size and Texture Lungs: Clear to auscultation, Normal air movement, No rhonchi, No wheeze, No rales Cardiovascular: Regular rate, Regular Rhythm, Normal S1, Normal S2, No murmurs Abdomen: Bowel Sounds Present, Soft, Non Tender, Non-Distended, No Hepato- splenomegaly Extremities: No edema, No Calf Tenderness Skin: No rashes, No breakdown Musculoskeletal: No Tenderness to Palpation of Joints or Extremities, No Muscle Wasting Neurological: Cranial nerves II-XII grossly intact, Neuro grossly intact, Motor Exam 5/5 strength throughout Psych/Mental Status: Normal Affect, Appropriate Vital Signs Temp Pulse Resp BP Pulse Ox 36.2 C L 73 16 160/85 H 95 04/02/19 08:55 04/02/19 10:07 04/02/19 10:07 04/02/19 10:07 04/02/19 10:07 Oxygen Delivery Method Room Air Weight: 138.346 kg Body Mass Index (BMI) 43.7 Finger Stick Blood Glucose 188 Laboratory Tests Past 24 Hrs 04/02/19 04/02/19 04/02/19 10:05 10:05 10:05 WBC 6.1 RBC 5.25 Hgb 14.9 Hct 45.9 MCV 87.4 MCH 28.4 MCHC 32.5 RDW 13.6 RDW Differential 43.3 Plt Count 236 MPV 10.2 Immature Gran % (Auto) 0.200 Neut % (Auto) 75.5 H Lymph % (Auto) 12.3 L [place] % (Auto) 7.7 Eos % (Auto) 3.6 Baso % (Auto) 0.7 Absolute Neuts (auto) 4.6 Absolute Lymphs (auto) 0.75 L Total Counted Not Reportable PT 12.4 INR 0.9 APTT 27.3 Sodium 144 Potassium 4.3 Chloride 107 Carbon Dioxide 29.0 Anion Gap 8 BUN 17 Creatinine 1.52 H Estim Creat Clear Calc 48.69 Est GFR (MDRD) Af Amer 59 L Est GFR (MDRD) Non-Af 49 L BUN/Creatinine Ratio 11.2 Glucose 190 H Calcium 9.1 Troponin I < 0.015 POC Glucose 04/02/19 10:12 POC Glucose 188 H EKG reviewed and showed normal sinus rhythm without acute changes Clinical Impression(s) from Imaging Studies Brain CT 04/02/19 09:22 IMPRESSION: Normal unenhanced CT scan of the brain. Electronically Signed: Pérez Thomas MD at 10:34 EDT Tel , Service support , Chest X-Ray 04/02/19 09:22 IMPRESSION: No acute abnormality is seen. Electronically Signed: Demetrio Phoenix, at 9:57 EDT , Service support , Assessment/Plan All Active Problems (Last Updated 04/02/19 @ 11:51 by Vishal Polanco DO) CVA (cerebral vascular accident) (Acute) 1. Suspected subacute stroke * Time of onset would have been March 31 when his symptoms began. Patient demonstrating no facial droop to me but that was witnessed by the emergency room physician and resolved when the emergency room physician rechecked on him * Given the patient's history of coronary disease and peripheral arterial disease, patient will undergo a stroke work-up: MRI of the brain, MRA of the head neck, echocardiogram, physical, occupational, speech therapies, neurology evaluation * Patient already on aspirin and clopidogrel. 2. CAD * Status post CABG * Continue with his home medications 3. PAD * Continue cilostazol 4. Diabetes mellitus type 2 * Continue metformin * Sliding scale insulin * Check an A1c 5. VTE prophylaxis: Low risk as patient is observation status. Case discussed with the patient's at bedside. Code Visit OBSV E&M: 55304 Initial observation care L3
--- NOTE | 2019-04-02 11:51 | NURSING ---
PCU RT FACIAL DROOP [facility]ELAND
--- NOTE | 2019-04-02 12:33 | ECHOCS_ITS ---
Reason For Study: TIA/CVA Procedure This was a 2D Doppler, Color Flow transthoracic echocardiogram. Technically difficult study due to patients body habitus. Contrast injection performed. Bubble study attempted twice with no success. The study was technically difficult. Contrast injection was performed. Exam performed portable in patient room. Left Ventricle Normal LV size. Left ventricular systolic function is normal. The estimated ejection fraction is 65 %. Diastolic function is indeterminate. No regional wall motion abnormalities noted. Right Ventricle The right ventricle is not well visualized. Atria Normal left atrium. Normal right atrium. No doppler evidence for ASD. Mitral Valve There is mild mitral annular calcification. Normal mitral valve. Tricuspid Valve The tricuspid valve is not well visualized. Trivial tricuspid valve insufficiency. Right ventricular systolic pressure estimated to be 34 mmHg. Aortic Valve Trisinus/trileaflet aortic valve. Mild focal aortic valve calcification. Pulmonic Valve The pulmonic valve is not well visualized. Trivial pulmonic valve insufficiency. Great Vessels The aortic root is not well visualized. Pericardium/Pleural No pericardial effusion. Medication Diluted definity 2ml given slow IV push to enhance endocardial definition. Performed a rapid injection of agitated mix of 9 cc saline and 1cc air to assess for atrial septal defect. MMode/2D Measurements & Calculations LVIDd: 5.0 cm IVSd: 1.1 cm LVOT diam: 2.0 cm LVIDs: 3.2 cm LVPWd: 1.2 cm FS: 35.2 % LVOT area: 3.1 cm2 Time Measurements MV dec time: 0.22 sec Doppler Measurements & Calculations MV E max aashish: 70.8 cm/sec Lat Peak E' Aashish: 11.2 cm/sec Med Peak E' Aashish: 7.7 cm/sec MV A max aashish: 86.4 cm/sec E/E' lat: 6.3 E/E' med: 9.1 MV E/A: 0.82 MV V2 max: 105.9 cm/sec MV P1/2t max aashish: 89.6 cm/sec Ao V2 max: 151.2 cm/sec MV max P.5 mmHg MV P1/2t: 133.6 msec Ao max P.2 mmHg MV V2 mean: 52.2 cm/sec MV mean P.3 mmHg MV dec slope: 196.3 cm/sec2 TATO(V,D): 2.1 cm2 MV V2 VTI: 38.1 cm MVA(P1/2t): 1.6 cm2 LV V1 max: 101.8 cm/sec PA V2 max: 120.4 cm/sec TR max aashish: 276.9 cm/sec LV V1 max P.1 mmHg TR max P.7 mmHg Interpretation Summary The study was technically difficult. Contrast injection was performed. Left ventricular systolic function is normal. The estimated ejection fraction is 65 %. There is mild mitral annular calcification. Trivial tricuspid valve insufficiency. Mild focal aortic valve calcification. Trivial pulmonic valve insufficiency. Right ventricular systolic pressure estimated to be 34 mmHg. Diastolic function is indeterminate. Ordering Physician: Vishal Polanco Referring Physician: Brad Renner Performed By: Pete More RCS
--- NOTE | 2019-04-02 12:33 | MRI_ITS ---
STUDY: MRI BRAIN WITHOUT CONTRAST REASON FOR EXAM: Male, 68 years old. Stroke, slurred speech, right facial droop. TECHNIQUE: Standardized multiplanar fat and water weighted pulse sequences were obtained. COMPARISON: CT earlier today FINDINGS: Normal size of the ventricles and extra-axial spaces for the patient's age. Normal white matter tracts of the supratentorial brain. 6 mm oval hyperintensity of the periventricular white matter of the posterior left parietal lobe demonstrates restricted diffusion consistent with an acute/subacute infarct. Normal T2* images of the brain without demonstrated susceptibility artifact. There is no demonstrated hemosiderin stain. Normal bilateral basal ganglia. Normal thalami. There is no extra-axial fluid accumulation. Normal flow voids within the major intracranial circulation suggesting patency by spin echo criteria. Normal sella turcica, pituitary gland, infundibular stalk, optic chiasm and hypothalamus. Normal tectal plate and pineal gland. Normal midbrain, jama and medulla. Normal cerebellum. Normal basal cisterns. Normal bilateral temporal bones. Normal bilateral internal auditory canals. No demonstrated orbital abnormality, within the constraints of a routine brain study. Normal visualized paranasal sinuses. Normal calvarium and skull base. Normal visualized soft tissue structures. Normal visualized upper cervical spine. MRI/Brain without Contrast IMPRESSION: 6 mm acute/subacute infarct of the paravertebral white matter of the posterior left parietal lobe. N.B. : The above information has been verbally conveyed by Pérez Thomas MD to Campbell Sosa RN, on 04/02/2019 16:45:55 (ET). Electronically Signed: Pérez Thomas MD at 16:40 EDT Tel , Service support ,
--- NOTE | 2019-04-02 12:33 | MRI_ITS ---
STUDY: MRA OF THE HEAD WITHOUT CONTRAST REASON FOR EXAM: Male, 68 years old. Stroke, slurred speech, facial droop TECHNIQUE: 3-D [id number]-[id number] (TOF) imaging was performed with MIPs. The study was performed unenhanced. COMPARISON: None. FINDINGS: Normal bilateral petrous carotid arteries. Normal right cavernous carotid artery with a normal supraclinoid bifurcation. Normal left cavernous carotid artery with a normal supraclinoid bifurcation. Normal right A1 segments of the anterior cerebral artery. Normal left A1 segments of the anterior cerebral artery. Normal intact anterior communicating artery (ACOM). Normal bilateral A2 segments of the anterior cerebral arteries. Normal right M1 and M2 segments of the middle cerebral arteries, with a normal M1 bifurcation. Normal left M1 and M2 segments of the middle cerebral arteries, with a normal M1 bifurcation. Normal right posterior communicating artery (PCOM). Normal left posterior communicating artery (PCOM). Normal bilateral vertebral arteries. Normal basilar artery with a normal basilar bifurcation. The visualized bilateral superior cerebellar (SCA) arteries are normal. Normal bilateral P1, P2 and visualized P3 segments of the posterior cerebral arteries. There is no demonstrated aneurysm of the [place]. There is no major vessel occlusion or hemodynamically significant stenosis. There is no demonstrated abnormality of the visualized brain. MRI/MRA Head ONLY without Contrast IMPRESSION: Normal MRA of the head Electronically Signed: Pérez Thomas MD at 16:41 EDT Tel , Service support ,
[2019-04-02 13:02] LABS: Hemoglobin A1c 6.8 % (4.2-6.3)
--- NOTE | 2019-04-02 15:23 | CDU_ITS ---
Reason For Study: CVA Rt. Velocities/BP Lt. Velocities/BP Prox CCA 117.4/18.8 cm/sec. Prox CCA 133.9/13.3 cm/sec. Mid CCA 88.2/15.2 cm/sec. Mid CCA 113.8/15.2 cm/sec. Dist CCA 152.1/18.8 cm/sec. Dist CCA 157.6/20.6 cm/sec. Prox ICA 83.9/14.6 cm/sec. Prox ICA 158.7/35.8 cm/sec. Mid ICA 80.6/19.0 cm/sec. Mid ICA 108.2/22.6 cm/sec. Dist ICA 69.6/16.8 cm/sec. Dist ICA 74.1/13.9 cm/sec. Rt. ICA/CCA = 0.7. Lt. ICA/CCA = 1.2. Prox ECA 141.2/7.9 cm/sec. Prox ECA 342.9/24.9 cm/sec. Rt. Vert. 35.5/11.3 cm/sec. Lt. Vert. 66.7/16.3 cm/sec. Right Extracranial There is homogeneous, smooth atherosclerotic plaque noted in the right common carotid artery. There is heterogeneous, irregular atherosclerotic plaque noted in the right internal carotid artery. There is intimal thickening but no significant atherosclerotic plaque noted in the right external carotid artery. Antegrade flow is noted in the right vertebral artery. Left Extracranial There is heterogeneous, irregular atherosclerotic plaque noted in the left common carotid artery. There is heterogeneous, irregular atherosclerotic plaque noted in the left internal carotid artery. There is heterogeneous, irregular atherosclerotic plaque noted in the left external carotid artery. Antegrade flow is noted in the left vertebral artery. Procedure Carotid Duplex 00873. The study was technically difficult. Exam performed portable in patient room. Interpretation Summary Post operative changes right carotid bulb and proximal internal carotid with <50% stenosis of the internal carotid <50% stenosis right external carotid Calcific irregular plague at the proximal left internal carotid with 50-69% stenosis. >50% stenosis left external carotid Patent and antegrade vertebrals bilaterally Ordering Physician: Vishal Polanco Referring Physician: Brad Renner Performed By: Lucita Pulido RVT
[2019-04-02 16:20] LABS: Bedside Glucose 135 mg/dL (70-110)
[2019-04-02] MEDS: Metoprolol Tartrate 50 MG Tablet PO (17:06)
[2019-04-02] MEDS: metFORMIN HCl 1,000 MG Tablet 1000 MG PO (19:21)
[2019-04-02] MEDS: hydrALAZINE 20 MG/ML Vial 5 MG IV (19:49)
[2019-04-02] MEDS: 0.9% NaCl Peripheral Flush Adult/Peds IV (19:49)
[2019-04-02] MEDS: Cilostazol 50 MG Tablet 100 MG PO (21:47)
[2019-04-03] VITALS (11 sets, daily range): BP systolic 120–168; BP diastolic 48–83; PULSE 54–82; RESP 16–18; TEMP 36.6–36.9; O2SAT 93–98; BMI 45.3
[2019-04-03 01:00] LABS: Bedside Glucose 134 mg/dL (70-110)
[2019-04-03] MEDS: Heparin Injection (Vial) 5,000 UNIT/ML VIAL 5000 UNIT SC (06:15)
[2019-04-03 07:01] LABS: Bedside Glucose 133 mg/dL (70-110)
[2019-04-03 08:09] LABS: Cholesterol 173 mg/dL (200); High Density Lipoprotein 46 mg/dL; Triglycerides 257 mg/dL; Very Low Density Lipoprotein 51 mg/dL (5-40)
[2019-04-03] MEDS: Niacin SA 500 MG Tablet PO (08:37)
[2019-04-03] MEDS: Aspirin E.C. 81 MG Tablet PO (08:37)
[2019-04-03] MEDS: Tamsulosin HCl 0.4 MG Capsule PO (08:37)
[2019-04-03] MEDS: Fenofibrate 145 MG Tablet PO (08:37)
[2019-04-03] MEDS: metFORMIN HCl 1,000 MG Tablet 1000 MG PO (08:37)
[2019-04-03] MEDS: Ezetimibe 10 MG Tablet PO (09:40)
[2019-04-03] MEDS: Clopidogrel Bisulfate 75 MG Tablet PO (09:40)
[2019-04-03] MEDS: Metoprolol Tartrate 50 MG Tablet PO (09:41)
[2019-04-03] MEDS: Cilostazol 50 MG Tablet 100 MG PO (09:41)
[2019-04-03] MEDS: Lisinopril 10 MG Tablet 30 MG PO (09:41)
[2019-04-03] MEDS: Triamterene 37.5MG/Hctz 25MG Capsule 1 CAP PO (09:41)
--- NOTE | 2019-04-03 10:01 | CON.PCM_ITS ---
Reason for Consult Date of Consultation: 04/03/19 Reason for Consultation: CVA History of Present Illness: The patient is a 68 year old M presents after sx starting 3 d ago, intially drooling and not feeling right, yesterday am noted slurred speech, and daughter drove him to the ED. feels improved but not normal. right handed. no gait changes. SACHA on cpap, last psg 18yrs ago. uses cpap nightly. takes asa/plavix/pletal daily. bp at home [id number]. quit tob 3.5yrs ago. Per admission note: The patient is a 68 year old M presents with 2-day history of right facial droop. Also had slurred speech and drooling. Presented to the emergency room where he was noted to have right facial droop and underwent stroke work-up which was unremarkable. When checked on him again, the facial droop had resolved. Feels he just involves his lower face not forehead. Patient is never had a stroke before. Patient denied any right-sided weakness otherwise. Past Medical History Medical History: Medical History (Last Reviewed 04/03/19 @ 11:44 by Venkat Fletcher MD) CAD (coronary artery disease) I25.10 DM2 (diabetes mellitus, type 2) E11.9 SACHA (obstructive sleep apnea) G47.33 PAD (peripheral artery disease) I73.9 HTN (hypertension) I10 Allergies Zifosai-Mxc-Bhq Reductase Inhibitor Allergy (Verified 04/02/19 08:54) Pain in joints Home Medications: Ambulatory Orders Medication Instructions Recorded Aspirin E.C. [Ecotrin] 81 mg PO DAILY@0800 03/14/18 Cholecalciferol (Vitamin D3) 2,000 unit PO DAILY 03/14/18 [Vitamin D3] Cilostazol 100 mg PO BID 03/14/18 Clopidogrel Bisulfate [Plavix] 75 mg PO DAILY 03/14/18 Ezetimibe [Zetia] 10 mg PO DAILY 03/14/18 Fenofibrate Nanocrystallized 160 mg PO DAILY 03/14/18 [Triglide] Lisinopril [Zestril] 30 mg PO DAILY 03/14/18 Metoprolol Tartrate [Lopressor 50 mg PO BID 03/14/18 (Beta Abena)] Niacin 500 mg PO DAILY 03/14/18 Triamterene 37.5MG/Hctz 25MG 1 cap PO DAILY 03/14/18 [Dyazide (G)] metFORMIN HCl [Glucophage] 1,000 mg PO BIDCM 03/14/18 Tamsulosin HCl [Flomax] 0.4 mg PO DAILY 11/06/18 Surgical History: Surgical History (Last Reviewed 04/03/19 @ 11:44 by Venkat Fletcher MD) Hx of CABG Z95.1 S/P peripheral artery angioplasty with stent placement Z95.820 Smoking Status: Former smoker Tobacco Use: Non-smoker Alcohol: Rare Drugs: None - *Family History Maternal History Items: - - no CVA Review of Systems Constitutional: Denies: Chills, Fever, Weight Change HEENT: Denies: Head Aches, Sinus Congestion, Sinus Drainage Cardiovascular: Denies: Chest Pain, Palpitations Respiratory: Denies: Cough, Shortness of breath at rest, Sputum production Gastrointestinal: Denies: Abdominal Pain, Nausea, Vomiting Genitourinary: Denies: Dysuria Musculoskeletal: Denies: Joint Pain, Joint Tenderness Skin: Denies: Rash, Wounds Neurological: Denies: Numbness, Tingling, Focal weakness Psychiatric: Denies: Anxiety, Depression, Homicidal Ideations, Suicidal Ideations Hematologic/ Lymphatic: Denies: Easy Bruising, Easy Bleeding Patient Problems: Active and Suspected Problems (Last Reviewed 04/03/19 @ 11:44 by Venkat Fletcher MD) CVA (cerebral vascular accident) (Acute) - Physical Exam General: Alert, Oriented x3, Cooperative, No apparent distress HEENT: PERRLA, EOMI Neurological: Cranial nerves II-XII grossly intact, Deep Tendon Reflexes 2+/4 and Symmetrical, Neuro grossly intact, Motor Exam 5/5 strength throughout, Sensory exam intact to light touch and pain, Coordination normal, Gait narrow based and stable Psych/Mental Status: Normal Affect, Alert and oriented to time, place, person, mood and affect Vital Signs Temp Pulse Resp BP Pulse Ox 36.6 C 68 16 168/83 H 97 04/03/19 09:34 04/03/19 09:41 04/03/19 09:34 04/03/19 09:41 04/03/19 09:34 Oxygen Delivery Method Room Air Weight: 143.4 kg Body Mass Index (BMI) 45.3 Finger Stick Blood Glucose 188 Intake and Output for Last 24 Hours 04/01/19 04/02/19 04/03/19 23:59 23:59 23:59 Intake Total 620 / 620 120 / 120 Balance 620 / 620 120 / 120 Laboratory Tests Past 24 Hrs 04/02/19 04/02/19 04/02/19 10:05 10:05 10:05 WBC 6.1 RBC 5.25 Hgb 14.9 Hct 45.9 MCV 87.4 MCH 28.4 MCHC 32.5 RDW 13.6 RDW Differential 43.3 Plt Count 236 MPV 10.2 Immature Gran % (Auto) 0.200 Neut % (Auto) 75.5 H Lymph % (Auto) 12.3 L [place] % (Auto) 7.7 Eos % (Auto) 3.6 Baso % (Auto) 0.7 Absolute Neuts (auto) 4.6 Absolute Lymphs (auto) 0.75 L Total Counted Not Reportable PT 12.4 INR 0.9 APTT 27.3 Sodium 144 Potassium 4.3 Chloride 107 Carbon Dioxide 29.0 Anion Gap 8 BUN 17 Creatinine 1.52 H Estim Creat Clear Calc 48.69 Est GFR (MDRD) Af Amer 59 L Est GFR (MDRD) Non-Af 49 L BUN/Creatinine Ratio 11.2 Glucose 190 H Hemoglobin A1c Calcium 9.1 Troponin I < 0.015 Triglycerides Cholesterol LDL Cholesterol VLDL Cholesterol HDL Cholesterol 04/02/19 04/03/19 10:05 06:35 WBC RBC Hgb Hct MCV MCH MCHC RDW RDW Differential Plt Count MPV Immature Gran % (Auto) Neut % (Auto) Lymph % (Auto) [place] % (Auto) Eos % (Auto) Baso % (Auto) Absolute Neuts (auto) Absolute Lymphs (auto) Total Counted PT INR APTT Sodium Potassium Chloride Carbon Dioxide Anion Gap BUN Creatinine Estim Creat Clear Calc Est GFR (MDRD) Af Amer Est GFR (MDRD) Non-Af BUN/Creatinine Ratio Glucose Hemoglobin A1c 6.8 H Calcium Troponin I Triglycerides 257 H Cholesterol 173 LDL Cholesterol 76 VLDL Cholesterol 51 H HDL Cholesterol 46 POC Glucose 04/03/19 04/02/19 04/02/19 06:34 21:45 16:16 POC Glucose 133 H 134 H 135 H 04/02/19 10:12 POC Glucose 188 H MRI reviewed. Acute left basal ganglia infarct. Assessment/Plan All Active Problems (Last Reviewed 04/03/19 @ 11:44 by Venkat Fletcher MD) CVA (cerebral vascular accident) (Acute) acute left bg infarct, risk factors include sacha, htn op psg pt/ot dc if ambulating nl tele, echo nl asa overlapped with plavix for 90 days, then just plavix
--- NOTE | 2019-04-03 10:34 | CASEMGMT ---
Assessment- 04-03-19 Confirmed phone numbers and addresses Living situation- Patient lives with his in a single story home with one entry step. PCP: Dr. Brad Renner Specialists: Dr Dillan Lopez-Cardiology [facility]: [facility] Script coverage: Yes. [employer] [facility] DME: CPAP- could not remember company ADL's/IADL's: Independent in all ADL's. Past SNF/rehab: None Past HH: None LW: Yes. Patient is aware it is not on file at [facility] POA: Yes. Patient is aware it is not on file at [facility]. His is his POA Patient does not anticipate any d/c needs. Jessika CALLAHAN [employer]UMIN[employer]ING[employer]FER
--- NOTE | 2019-04-03 11:28 | CASEMGMT ---
Patient has a Healthcare POA and Healthcare LW. He is aware they are not on file at [facility]. Jessika CALLAHAN MSW
[2019-04-03 12:10] LABS: Bedside Glucose 104 mg/dL (70-110)
--- NOTE | 2019-04-03 16:11 | DCINST_ITS ---
- Discharge Diagnoses Current Active Problems: Current Active and Chronic Problems (Last Reviewed 04/03/19 @ 11:44 by Venkat Fletcher MD) CVA (cerebral vascular accident) (Acute) You will use the following diet at home:: Cardiac - 1to1 supervision. Small sips. Chin tuck. Sit upright with hip flexion at 90 degrees. Your food should be the consistency of: Regular Your liquids should be the consistency of: Regular/Thin Discharge Activity: Return to Normal Activity Call your doctor if you observe: - - increased weakness. worsening ability to speak. Allergies/Adverse Reactions: Allergies Uqrkurr-Dvf-Veb Reductase Inhibitor Allergy (Verified 04/02/19 08:54) Pain in joints Medications to take at Discharge Aspirin E.C. [Ecotrin] 81 mg PO DAILY@0800 03/14/18 Cholecalciferol (Vitamin D3) [Vitamin D3] 2,000 unit PO DAILY 03/14/18 Cilostazol 100 mg PO BID 03/14/18 Clopidogrel Bisulfate [Plavix] 75 mg PO DAILY 03/14/18 Ezetimibe [Zetia] 10 mg PO DAILY 03/14/18 Fenofibrate Nanocrystallized [Triglide] 160 mg PO DAILY 03/14/18 Lisinopril [Zestril] 30 mg PO DAILY 03/14/18 Metoprolol Tartrate [Lopressor (beta vee)] 50 mg PO BID 03/14/18 Niacin 500 mg PO DAILY 03/14/18 Triamterene 37.5MG/Hctz 25MG [Dyazide (G)] 1 cap PO DAILY 03/14/18 metFORMIN HCl [Glucophage] 1,000 mg PO BIDCM 03/14/18 Tamsulosin HCl [Flomax] 0.4 mg PO DAILY 11/06/18 Orders to be completed after discharge: Speech Therapy Evaluation Location: None Selected Primary Care Physician: Brad Renner MD [Primary Care Provider] - Test Results: Test results from this visit will be discussed in further detail at your follow- up appointment, if applicable. Please Follow Up With: Venkat Fletcher MD When: 1-2 months Proposed Discharge Date: 04/03/19
--- NOTE | 2019-04-03 16:16 | PCM.DC.SUM ---
Discharge Date and Diagnosis - Problem List Patient Problems: Active and Suspected Problems (Last Reviewed 04/03/19 @ 11:44 by Venkat Fletcher MD) CVA (cerebral vascular accident) (Acute) Date of Admission: 04/02/19 Date of Discharge: 04/03/19 - Primary Discharge Diagnosis Active and Suspected Problems (Last Reviewed 04/03/19 @ 11:44 by Venkat Fletcher MD) CVA (cerebral vascular accident) (Acute) Hospital Course and Treatment Imaging Results: Clinical Impression(s) from Imaging Studies Brain CT 04/02/19 09:22 IMPRESSION: Normal unenhanced CT scan of the brain. Electronically Signed: Pérez Thomas MD at 10:34 EDT Tel , Service support , Chest X-Ray 04/02/19 09:22 IMPRESSION: No acute abnormality is seen. Electronically Signed: Demetrio Phoenix, at 9:57 EDT , Service support , Brain MRI 04/02/19 12:33 IMPRESSION: 6 mm acute/subacute infarct of the paravertebral white matter of the posterior left parietal lobe. N.B. : The above information has been verbally conveyed by Pérez Thomas MD to Campbell Sosa RN, on 04/02/2019 16:45:55 (ET). Electronically Signed: Pérez Thomas MD at 16:40 EDT Tel , Service support , Head MRA 04/02/19 12:33 IMPRESSION: Normal MRA of the head Electronically Signed: Pérez Thomas MD at 16:41 EDT Tel , Service support , Venkat Fletcher MD: neurology Procedures: 2-D Echocardiogram Summary of Care Provided: The patient is a 68 year old M presents with 2 day history of right facial droop, slurred speech and drooling. He had an MRI that showed a 6mm acute/subacute infarct in posterior left parietal lobe. Patient was seen by neurology who recommend ASA and plavix for 30 day, then plavix thereafter. Patient will continue with both, as he was on these medication prior to arrival. 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 Patient did have a carotid duplex that showed <50% stenosis of the DELTA and 50-69% stenosis on his left (due to his neck circumference, he was to large to have a neck MRA). Seen by speech therapy who recommends regular texture and liquids but 1:1 supervision with barbie sepulveda. Patient to follow up with speech as outpt. [] Patient Problems: Active and Suspected Problems (Last Reviewed 04/03/19 @ 11:44 by Venkat Fletcher MD) CVA (cerebral vascular accident) (Acute) - Physical Exam General: Alert, No apparent distress HEENT: Atraumatic, Normocephalic, - - right facial droop. Psych/Mental Status: Normal Affect, Appropriate Vital Signs Temp Pulse Resp BP Pulse Ox 36.8 C 64 16 122/59 H 93 04/03/19 13:20 04/03/19 15:07 04/03/19 13:20 04/03/19 13:20 04/03/19 13:20 Oxygen Delivery Method Room Air Weight: 143.4 kg Body Mass Index (BMI) 45.3 Finger Stick Blood Glucose 188 Intake and Output for Last 24 Hours 04/01/19 04/02/19 04/03/19 23:59 23:59 23:59 Intake Total 620 / 620 740 / 740 Balance 620 / 620 740 / 740 Laboratory Tests Past 24 Hrs 04/03/19 06:35 Triglycerides 257 H Cholesterol 173 LDL Cholesterol 76 VLDL Cholesterol 51 H HDL Cholesterol 46 POC Glucose 04/03/19 04/03/19 04/02/19 11:55 06:34 21:45 POC Glucose 104 133 H 134 H 04/02/19 16:16 POC Glucose 135 H Discharge Diet: Low fat/ Low Cholesterol Discharge Activity: Return to Normal Activity Call your doctor if you observe: - - increased weakness. worsening ability to speak. Home Medications: Medications to take at Discharge Aspirin E.C. [Ecotrin] 81 mg PO DAILY@0800 03/14/18 Cholecalciferol (Vitamin D3) [Vitamin D3] 2,000 unit PO DAILY 03/14/18 Cilostazol 100 mg PO BID 03/14/18 Clopidogrel Bisulfate [Plavix] 75 mg PO DAILY 03/14/18 Ezetimibe [Zetia] 10 mg PO DAILY 03/14/18 Fenofibrate Nanocrystallized [Triglide] 160 mg PO DAILY 03/14/18 Lisinopril [Zestril] 30 mg PO DAILY 03/14/18 Metoprolol Tartrate [Lopressor (beta vee)] 50 mg PO BID 03/14/18 Niacin 500 mg PO DAILY 03/14/18 Triamterene 37.5MG/Hctz 25MG [Dyazide (G)] 1 cap PO DAILY 03/14/18 metFORMIN HCl [Glucophage] 1,000 mg PO BIDCM 03/14/18 Tamsulosin HCl [Flomax] 0.4 mg PO DAILY 11/06/18 Other Amb Orders: Speech Therapy Evaluation Location: None Selected Primary Care Physician: Brad Renner MD [Primary Care Provider] - Please Follow Up With: Venkat Fletcher MD When: 1-2 months Disposition: Home Minutes spent on discharge:: 35 Patient Condition:: Good Medical Necessity - Tobacco Use Smoking Status: Former smoker Tobacco Use: Non-smoker Meaningful Use Info Meaningful Use Diagnoses (Choose all that apply): Ischemic CVA - CVA Therapy Assessed for PT,OT and/or ST?: Yes - Ischemic Stroke Antithrombotic order at d/c?: Yes Dx of Atrial fib/flutter?: No Statins at discharge?: No Reason Statin not ordered: Drug Intolerance Primary Dx Acute Ischemic CVA?: Yes IV tPA ordered during stay?: No Reason IV t-PA not ordered: Treatment not Indicated Code Visit OBSV E&M: 54086 Observation care discharge
--- NOTE | 2019-04-05 12:24 | CASEMGMT ---
Call from [facility] stating they cannot read order that was faxed previously by pt's as pt left after this RN CM was gone for the day. This RN CM printed order and faxed to [facility] at this time. SStaten RN CM
== END 2019-04-03 16:16 | disposition home or self-care (01) ==
LOC: ED 11:52 → PCU 11:56
PROVIDERS: Emergency Provider Emergency Medicine; Family Provider Family Medicine; PCP Family Medicine
DX: I63.9 Cerebral infarction, unspecified (principal); R29.810 Facial weakness; R47.81 Slurred speech; E11.51 Type 2 diabetes mellitus with diabetic peripheral angiopathy without gangrene; G89.29 Other chronic pain; I25.10 Atherosclerotic heart disease of native coronary artery without angina pectoris; I10 Essential (primary) hypertension; N40.0 Benign prostatic hyperplasia without lower urinary tract symptoms; Z79.899 Other long term (current) drug therapy; Z79.02 Long term (current) use of antithrombotics/antiplatelets; Z79.82 Long term (current) use of aspirin; Z79.84 Long term (current) use of oral hypoglycemic drugs; Z95.1 Presence of aortocoronary bypass graft; Z87.891 Personal history of nicotine dependence
CPT/HCPCS: 36415; 70450; 70544; 70551; 71045; 80048; 80061; 82962; 83036; 84484; 85025; 85610; 85730; 92610; 92611; 93005; 93306; 93880; 94762; 96372; 96374; 97166; 97802; 99218; 99285; Q9957; A4216; C8929; G0378

== ENCOUNTER → 2019-05-01 | Outpatient (CLI) | payer MEDICARE, BC, SELFPAY ==
[2019-04-12 09:53] VITALS: BMI 43.7
== END | disposition home or self-care (01) ==
PROVIDERS: Family Provider Family Medicine; PCP Family Medicine; Visit Provider Registered Nurse
DX: G47.30 Sleep apnea, unspecified (principal)
CPT/HCPCS: 95811

== ENCOUNTER 2020-11-22 18:38 | Observation (INO) | payer MEDICARE, BC, SELFPAY ==
[2019-04-12 09:53] VITALS: BMI 43.7
[2020-11-22] VITALS (8 sets, daily range): BP systolic 144–151; BP diastolic 66–77; PULSE 55–58; RESP 12–18; TEMP 36–36.6; O2SAT 94–96; BMI 42.8; BMI 42.0
--- NOTE | 2020-11-22 18:54 | CT_ITS ---
STUDY: CT ABDOMEN AND PELVIS WITH CONTRAST REASON FOR EXAM: Male, 70 years old. Abdominal pain -- IV PO Contrast RADIATION DOSAGE (If Supplied By Facility): CTDIvol = ( 18.74 ) mGy, DLP = ( 1326.55 ) mGycm TECHNIQUE: Transaxial images were obtained from the dome of the diaphragm to the symphysis pubis with oral contrast. Oral and amp; IV Gastrografin and amp; 100mL Isovue-370 was administered. Sagittal and coronal images were reconstructed. Individualized dose optimization techniques were used for this CT. COMPARISON: Prior abdomen and pelvic CT exam of 11/28/2018 FINDINGS: Bibasilar mild atelectatic changes. Coronary calcifications. Normal liver. Normal gallbladder and extrahepatic biliary system. Normal spleen. Normal pancreas. Normal bilateral adrenal glands. Cortical scarring of the posterior midpole of the right kidney and a stable simple cyst. Negative for hydronephrosis or stones. Renal vascular calcifications. Minimal hydronephrosis of the left kidney secondary to a 8.0 x 6.0 mm stone in the proximal left ureter 4 cm below the ureteropelvic junction. The ureter thereafter is nondistended with no additional ureteral stones. Normal visualized stomach. Normal small intestine. Diverticulosis of the colon without evidence of acute diverticulitis. There is non-visualization of the appendix. 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 Bilateral renal artery stents. Normal inferior vena cava. Normal retroperitoneum. Normal urinary bladder. Large fatty left inguinal hernia. Small fatty right inguinal hernia. There are diffuse degenerative changes of the visualized lumbar spine. CT/Abdomen/Pelvis WITH Contrast IMPRESSION: Mild hydronephrosis of the left kidney secondary to an 8 x 6 mm stone in the proximal left ureter 4 cm below the ureteropelvic junction. No other left renal or ureteral stones. Negative for hydronephrosis of the right kidney. Focal mid pole cortical scarring and a stable midpole simple cyst. No acute bowel related findings. Negative for obstruction, perforation or inflammatory changes. Diverticulosis is abundant without evidence of acute diverticulitis. Unremarkable liver, spleen and pancreas. Unremarkable gallbladder. Stable infrarenal thrombosed aneurysm with patent endovascular stents. Bilateral renal artery stents are also present. Electronically Signed: Vanesa Gross MD at 21:22 EST , Service support ,
[2020-11-22] MEDS: 0.9% Normal Saline 1,000 ML 1000 ML IV (19:05)
[2020-11-22] MEDS: Morphine 4 MG/ML Syringe IV ×2 (19:06→21:29)
[2020-11-22] MEDS: Ondansetron 4 MG/2 ML Vial IV ×2 (19:07→21:45)
--- NOTE | 2020-11-22 19:16 | ED.DCSUM_ITS ---
- ER Visit Summary Date of Service: 11/22/20 Chief Complaint: Abdominal pain History of Present Illness: The patient is a 70 M who presents with left lower quadrant abdominal pain that has been getting worse over the past 7 hours. Patient states the pain is sharp. Patient states the pain is localized to the left lower quadrant and left flank area. Patient states nothing makes it better and nothing makes it worse. Patient admits to nausea but denies any vomiting. Patient denies any diarrhea. Patient denies any melena or hematochezia. Patient denies any dysuria or hematuria. Patient admits to prior colon surgery for an abscess. Physical Examination: Vital signs are stable. Patient is afebrile. Patient is in no acute distress. Oral mucosa is pink and moist. Neck is supple. Trachea is midline. There is no JVD noted. Heart was regular rate and rhythm. Lungs are clear and equal bilaterally. Abdomen is soft. Bowel sounds are normal. There is left lower quadrant tenderness. There is no rebound or guarding noted. Skin is warm dry. Cranial nerves II through XII are intact. There are no focal motor or sensory deficits noted. Extremities are intact. There is no calf tenderness or edema. Test Results: CBC and comprehensive metabolic profile were obtained and were essentially within normal limits. Lipase was normal. Urinalysis shows leukocyte esterase of 100 and occult blood of 250. There were greater than 100 red blood cells and 5-[address] scan of the abdomen and pelvis was obtained. There is an 8 mm x 6 mm calculus of the left proximal ureter with hydronephrosis. This was interpreted by the radiologist and reviewed by myself. Emergency Department Course and Treatment: Patient was given IV fluids, morphine, and Zofran. Patient had minimal improvement of his pain with this. Patient was given repeat dose of morphine and Zofran. Case was discussed with Dr. Cordon. He will admit the patient to the hospital for observation. Patient understood and was agreeable with the plan. All questions were answered. Disposition: Admit to hospital Impression: Left ureteral calculus This note was generated with [employer] dictation software. It may contain incorrect words, spelling, and punctuation that were not noted in review of the chart prior to signing ED Disposition - Plan for ED Patient: Disposition: Acute Care Hospital [facility] Diagnosis: Calculus of proximal left ureter Referrals: Brad Renner MD [Primary Care Provider] -
[2020-11-22 19:17] LABS: Absolute Lymphocyte Count 0.73 X10^3/uL (0.83-4.51); Absolute Neutrophil Count 9.4 X10^3/uL (2.0-7.7); Basophil# 0.04 X10^3/uL; Basophil% 0.4 % (0-1); Eosinophil# 0.06 X10^3/uL; Eosinophils% 0.6 % (0-5); Hematocrit 44.5 % (40-54); Hemoglobin 14.5 g/dL (13.0-16.5); Lymphocyte # 0.73 X10^3/ul (4.0); Lymphocyte % 6.7 % (19-41); Mean Corp Hgb Conc 32.6 g/dL (32-36); Mean Corpuscular Hgb 29.7 pg (27.0-32.0); Mean Corpuscular Volume 91.2 fL (80-94); Mean Platelet Vol. 10.2 fl (6.2-12.0); Monocyte% 5.5 % (0-10); NRBC Flagged by Analyzer 0 % (0-5); Neutrophil # 9.37 X10^3/uL (2.7-7.7); Neutrophil % 86.3 % (47-70); Platelet Count 249 K/mm3 (150-450); RBC Distribution Width CV 13.2 % (11.6-14.6); RBC Distribution Width SD 43.6 fl (35.1-43.9); Red Blood Count 4.88 M/mm3 (4.6-6.2); White Blood Count 10.9 K/mm3 (4.4-11.0)
[2020-11-22 20:16] LABS: ALB/GLOB Ratio 1.1 RATIO (0.9-2.4); AST(SGOT) 11 U/L (15-37); Alanine Aminotransfer ALT/SGPT 14 U/L (16-61); Albumin, Serum 3.6 g/dL (3.2-5.0); Alkaline Phosphatase 58 U/L (45-117); Anion Gap 9 (5-15); BUN 24 mg/dL (7-18); BUN/Creat Ratio 15.8 RATIO (10-20); Calcium,Total 9.5 mg/dL (8.5-10.1); Chloride 107 mmol/L (98-107); Creatinine, Serum 1.52 mg/dL (0.70-1.30); EST Glomerular Filtration Rate 49 mL/min (>60); Est Glom Filt Rate - Afr Amer 59 mL/min (>60); Estimated Creatinine Clearance 47.36 ml/min; Globulin 3.2 g/dL (2.2-4.2); Glucose 159 mg/dL (74-106); Lipase 101 U/L (73-393); Potassium 3.9 mmol/L (3.5-5.1); Protein, Total 6.8 g/dL (6.4-8.2); Sodium Level 141 mmol/L (136-145)
[2020-11-22 21:13] LABS: Bacteria 0 SEEN /hpf (None Seen); Mucous, Urine 0 SEEN /hpf (<or=2+); Squamous Epithelial Cells - UA 0 SEEN /hpf (0-5)
[2020-11-22 21:19] LABS: Color, Urine Amber (Yellow); Glucose, Dipstick Normal (Normal); Ketone-Dipstick 5 mg/dl (Negative); Leukocyte Esterase-Dipstick 100 /ul (Negative); Nitrite-Dipstick Negative (Negative); Occult Blood-Urine 250 /ul (Negative); Protein-Dipstick 100 mg/dl (Negative); Urine Bilirubin Dipstick Negative (Negative); Urine Clarity Cloudy (Clear); Urine Urobilinogen Normal (Normal)
[2020-11-22 21:36] LABS: Red Blood Cells-Urine > 100 SEEN /hpf (0-5); White Blood Cells 5-10 SEEN /hpf (0-5)
[2020-11-22] MEDS: HYDROmorphone 0.5 MG/0.5 ML SYRINGE IV (22:14)
[2020-11-22] MEDS: 0.9% Normal Saline 1,000 ML 75 ML IV (23:00)
[2020-11-22] MEDS: Ciprofloxacin 400 MG/200 ML BAG 200 MG IV (23:00)
[2020-11-23] VITALS (10 sets, daily range): BP systolic 119–145; BP diastolic 2–95; PULSE 53–70; RESP 12–16; TEMP 36.3–36.7; O2SAT 93–98; BMI 42.0
[2020-11-23] MEDS: Morphine 2 MG/ML Syringe IV ×4 (00:17→10:34)
[2020-11-23] MEDS: oxyCODONE 5 MG Tablet 10 MG PO (04:47)
[2020-11-23 05:28] LABS: Absolute Neutrophil Count 7.3 X10^3/uL (2.0-7.7); Basophil# 0.03 X10^3/uL; Basophil% 0.3 % (0-1); Eosinophil# 0.02 X10^3/uL; Eosinophils% 0.2 % (0-5); Hematocrit 43.3 % (40-54); Hemoglobin 13.7 g/dL (13.0-16.5); Lymphocyte % 6.9 % (19-41); Mean Corp Hgb Conc 31.6 g/dL (32-36); Mean Corpuscular Volume 91.5 fL (80-94); Mean Platelet Vol. 10.2 fl (6.2-12.0); Monocyte# 0.76 X10^3/uL; Monocyte% 8.7 % (0-10); NRBC Flagged by Analyzer 0 % (0-5); Neutrophil % 83.4 % (47-70); POSITIVE DIFFERENTIAL YES; Platelet Count 251 K/mm3 (150-450); RBC Distribution Width SD 43.8 fl (35.1-43.9); Red Blood Count 4.73 M/mm3 (4.6-6.2); White Blood Count 8.8 K/mm3 (4.4-11.0)
[2020-11-23 05:29] LABS: Differential Indicated SCAN CRITERIA MET
[2020-11-23 05:33] LABS: Prothrombin Time (Protime)PT. 12.9 SECONDS (11.7-14.9)
[2020-11-23 05:43] LABS: Anion Gap 9 (5-15); BUN 23 mg/dL (7-18); BUN/Creat Ratio 13.5 RATIO (10-20); Chloride 105 mmol/L (98-107); EST Glomerular Filtration Rate 43 mL/min (>60); Est Glom Filt Rate - Afr Amer 52 mL/min (>60); Estimated Creatinine Clearance 42.34 ml/min; Glucose 115 mg/dL (74-106); Sodium Level 140 mmol/L (136-145)
--- NOTE | 2020-11-23 06:00 | EKG12_ITS ---
Test Reason : AM EKG Blood Pressure : / mmHG Vent. Rate : 055 BPM Atrial Rate : 055 BPM P-R Int : 156 ms QRS Dur : 082 ms QT Int : 440 ms P-R-T Axes : 045 077 105 degrees QTc Int : 420 ms Sinus bradycardia with Premature atrial complexes Nonspecific T wave abnormality Abnormal ECG Confirmed by NUSRAT COON, ROSS ([id number]), movie editor MIGDALIA GEORGE ([id number]) on 11/24/2020 1:04:19 PM Referred By: NATHALIE Confirmed By:ROSS SILVERIO MD
[2020-11-23] MEDS: 0.9% Normal Saline 1,000 ML 75 ML IV (06:42)
[2020-11-23] MEDS: Ondansetron 4 MG/2 ML Vial IV (07:10)
--- NOTE | 2020-11-23 07:43 | HP.PCM_ITS ---
History of Present Illness Date of Admission: 11/23/20 The patient is a 70 year old Male wth left 8mm stone in the left UPJ admitted for pain control. Past Medical History Medical History: Medical History (Last Reviewed 04/03/19 @ 11:[address] Venkat Fletcher MD) CAD (coronary artery disease) I25.10 DM2 (diabetes mellitus, type 2) E11.9 SACHA (obstructive sleep apnea) G47.33 PAD (peripheral artery disease) I73.9 HTN (hypertension) I10 Allergies Cbomaig-Kbp-Hht Reductase Inhibitor Allergy (Verified 11/22/20 18:44) Pain in joints Home Medications: Ambulatory Orders Medication Instructions Recorded Aspirin E.C. [Ecotrin] 81 mg PO DAILY@0800 03/14/18 Cholecalciferol (Vitamin D3) 4,000 unit PO DAILY 03/14/18 [Vitamin D3] Cilostazol 100 mg PO BID 03/14/18 Clopidogrel Bisulfate [Plavix] 75 mg PO DAILY 03/14/18 Ezetimibe [Zetia] 10 mg PO DAILY 03/14/18 Fenofibrate Nanocrystallized 160 mg PO DAILY 03/14/18 [Triglide] Lisinopril [Zestril] 40 mg PO BID 03/14/18 Metoprolol Tartrate [Lopressor 50 mg PO BID 03/14/18 (beta vee)] Niacin 500 mg PO DAILY 03/14/18 metFORMIN HCl [Glucophage] 1,000 mg PO BIDCM 03/14/18 Tamsulosin HCl [Flomax] 0.4 mg PO DAILY 11/06/18 Amlodipine [Norvasc] 10 mg PO DAILY 11/22/20 Surgical History: Surgical History (Last Reviewed 04/03/19 @ 11:[address] Venkat Fletcher MD) Hx of CABG Z95.1 S/P peripheral artery angioplasty with stent placement Z95.820 Surgical History: no surgical history Smoking Status: Never smoker - *Family History Maternal History Items: - - no CVA Review of Systems Constitutional: Denies: Chills, Fever, Weight Change HEENT: Denies: Head Aches, Sinus Congestion, Sinus Drainage Cardiovascular: Denies: Chest Pain, Palpitations Respiratory: Denies: Cough, Shortness of breath at rest, Sputum production Gastrointestinal: Denies: Abdominal Pain, Nausea, Vomiting Genitourinary: Denies: Dysuria Musculoskeletal: Denies: Joint Pain, Joint Tenderness Skin: Denies: Rash, Wounds Neurological: Denies: Numbness, Tingling, Focal weakness Psychiatric: Denies: Anxiety, Depression, Homicidal Ideations, Suicidal Ideations Hematologic/ Lymphatic: Denies: Easy Bruising, Easy Bleeding VTE Information - Inpt Only VTE Present on Admission: No Patient Problems: Active and Suspected Problems (Last Reviewed 04/03/19 @ 11:[address] Venkat Fletcher MD) Calculus of proximal left ureter (Acute) - Physical Exam Vitals/I&O's: Vital Signs Temp Pulse Resp BP Pulse Ox 97.6 F L 53 L 16 121/90 H 98 11/23/20 03:30 11/23/20 03:30 11/23/20 03:30 11/23/20 03:30 11/23/20 03:30 Oxygen Delivery Method Bi-pap Weight: 132.7 kg Body Mass Index (BMI) 42.0 Finger Stick Blood Glucose 188 Intake and Output for Last 24 Hours 11/21/20 11/22/20 11/23/20 23:59 23:59 23:59 Intake Total 1010 / 1210 702.5 / 702.5 Output Total 300 / 300 Balance 1010 / 1210 402.5 / 402.5 General: Alert, Oriented x3, Cooperative HEENT: Atraumatic, PERRLA, EOMI, Normocephalic Neck: Supple, No JVD, Negative Carotid Bruits Lungs: Clear to auscultation, Normal air movement Cardiovascular: Regular rate, No murmurs Abdomen: Bowel Sounds Present, Soft, Non Tender Extremities: No edema, Capillary Refill Less than 3 Seconds Skin: No rashes, No breakdown Musculoskeletal: No Tenderness to Palpation of Joints or Extremities Neurological: Cranial nerves II-XII grossly intact Psych/Mental Status: Normal Affect, Appropriate Microbiology Past 72 Hours 11/23/20 05:18 Mucosa - Nose SARS-CoV-2 Antigen (Rapid) - Final Laboratory Results 11/22/20 19:00: WBC 10.9, RBC 4.88, Hgb 14.5, Hct 44.5, MCV 91.2, MCH 29.7, MCHC 32.6, RDW Std Deviation 43.6, RDW Coeff of Jarrod 13.2, Plt Count 249, MPV 10.2, Immature Gran % (Auto) 0.500, Neut % (Auto) 86.3 H, Lymph % (Auto) 6.7 L, [place] % (Auto) 5.5, Eos % (Auto) 0.6, Baso % (Auto) 0.4, Absolute Neuts (auto) 9.4 H, Absolute Lymphs (auto) 0.73 L, Nucleated RBC % 0 11/22/20 19:00: Sodium 141, Potassium 3.9, Chloride 107, Carbon Dioxide 25.0, Anion Gap 9, BUN 24 H, Creatinine 1.52 H, Estim Creat Clear Calc 47.36, Est GFR (MDRD) Af Amer 59 L, Est GFR (MDRD) Non-Af 49 L, BUN/Creatinine Ratio 15.8, Glucose 159 H, Calcium 9.5, Total Bilirubin 0.50, AST 11 L, ALT 14 L, Alkaline Phosphatase 58, Total Protein 6.8, Albumin 3.6, Globulin 3.2, Albumin/Globulin Ratio 1.1, Lipase 101 11/22/20 21:05: Urine Color Nya, Urine Clarity Cloudy, Urine pH 5.0, Ur Speci fic [place] 1.020, Urine Protein 100 H, Urine Glucose (UA) Normal, Urine Ketones 5 H, Urine Occult Blood 250 H, Urine Nitrite Negative, Urine Bilirubin Negative, Urine Urobilinogen Normal, Ur Leukocyte Esterase 100 H, Urine RBC > 100 SEEN, Urine WBC 5-10 SEEN, Ur Squamous Epith Cells 0 SEEN, Urine Bacteria 0 SEEN, Urine Mucus 0 SEEN 11/23/20 04:54: WBC 8.8, RBC 4.73, Hgb 13.7, Hct 43.3, MCV 91.5, MCH 29.0, MCHC 31.6 L, RDW Std Deviation 43.8, RDW Coeff of Jarrod 13.0, Plt Count 251, MPV 10.2, Immature Gran % (Auto) 0.500, Neut % (Auto) 83.4 H, Lymph % (Auto) 6.9 L, [place] % (Auto) 8.7, Eos % (Auto) 0.2, Baso % (Auto) 0.3, Absolute Neuts (auto) 7.3, Absolute Lymphs (auto) 0.60 L, Nucleated RBC % 0 11/23/20 04:54: Sodium 140, Potassium 4.0, Chloride 105, Carbon Dioxide 26.0, Anion Gap 9, BUN 23 H, Creatinine 1.70 H, Estim Creat Clear Calc 42.34, Est GFR (MDRD) Af Amer 52 L, Est GFR (MDRD) Non-Af 43 L, BUN/Creatinine Ratio 13.5, Glucose 115 H, Calcium 9.0 11/23/20 04:54: Hemoglobin A1c Pending 11/23/20 04:54: PT 12.9, INR 1.0 Current Medications Acetaminophen (Acetaminophen 325 Mg Tablet) 650 mg PO Q6H PRN PRN PRN Reason: Pain Score 1-10/Temp > 100.7 F Amlodipine Besylate (Amlodipine 10 Mg Tablet) 10 mg PO DAILY [facility] Cilostazol (Cilostazol 50 Mg Tablet) 100 mg PO BID [facility] Ezetimibe (Ezetimibe 10 Mg Tablet) 10 mg PO DAILY [facility] Fenofibrate (Fenofibrate 145 Mg Tablet) 145 mg PO DAILY [facility] Sodium Chloride () 1,000 mls @ 75 mls/hr IV .[id number] [facility] Last Admin: 11/23/20 06:42 Dose: 75 mls/hr Documented by: Ciprofloxacin (Cipro) 400 mg in 200 mls @ 200 mls/hr IV Q12 [facility] Stop: 11/29/20 22:01 Last Infusion: 11/23/20 00:00 Dose: Infused Documented by: Sodium Chloride () 250 mls @ 15 mls/hr IV .[id number] PRN PRN Reason: Saline Flush Sodium Chloride () 250 mls @ 15 mls/hr IV .[id number] PRN PRN Reason: Additional IVPB Infusion Lisinopril (Lisinopril 40 Mg Tablet) 40 mg PO BID [facility] [place] Last Admin: 11/22/20 23:10 Dose: Not Given Documented by: Metoprolol Tartrate (Metoprolol Tartrate 50 Mg Tablet) 50 mg PO BID [facility] [place] Last Admin: 11/22/20 23:10 Dose: Not Given Documented by: Morphine Sulfate (Morphine 2 Mg/Ml Syringe) 2 mg IV Q3H PRN PRN PRN Reason: Pain Score 6-10 Last Admin: 11/23/20 07:35 Dose: 2 mg Documented by: Niacin (Niacin Sa 500 Mg Tablet) 500 mg PO DAILY [facility] Ondansetron HCl (Ondansetron 4 Mg/2 Ml Vial) 4 mg IV Q8H PRN PRN PRN Reason: NAUSEA/VOMITING Last Admin: 11/23/20 07:10 Dose: 4 mg Documented by: Oxycodone HCl (Oxycodone 5 Mg Tablet) 10 mg PO Q4H PRN PRN PRN Reason: Pain Score 4-5 Last Admin: 11/23/20 04:47 Dose: 10 mg Documented by: Sodium Chloride (0.9% Saline Lock 10 Ml Syringe) 10 - 40 ml IV UD PRN PRN Reason: SALINE FLUSH Tamsulosin HCl (Tamsulosin Hcl 0.4 Mg Capsule) 0.4 mg PO DAILY [facility] Assessment/Plan All Active Problems (Last Reviewed 04/03/19 @ 11:[address] Venkat Fletcher MD) CVA (cerebral vascular accident) (Acute) Calculus of proximal left ureter (Acute) npo surgery today for left stent.
[2020-11-23 08:17] LABS: Hemoglobin A1c 5.7 % (3.8-5.6)
[2020-11-23] MEDS: Metoprolol Tartrate 50 MG Tablet PO (08:30)
[2020-11-23] MEDS: Lisinopril 40 MG Tablet PO (08:30)
[2020-11-23] MEDS: amLODIPine 10 MG Tablet PO (08:30)
[2020-11-23] MEDS: Ciprofloxacin 400 MG/200 ML BAG 200 MG IV (08:59)
--- NOTE | 2020-11-23 12:40 | DCINST_ITS ---
Discharge Diet: Light diet - advance as tolerated Discharge Activity: Return to Normal Activity Suture Line Care: Avoid Pulling/Pushing, Avoid Pinching/Bending Allergies/Adverse Reactions: Allergies Rehzmfq-Prz-Qbp Reductase Inhibitor Allergy (Verified 11/22/20 18:44) Pain in joints Medications to take at Discharge Aspirin E.C. [Ecotrin] 81 mg PO DAILY@0800 03/14/18 Cholecalciferol (Vitamin D3) [Vitamin D3] 4,000 unit PO DAILY 03/14/18 Cilostazol 100 mg PO BID 03/14/18 Clopidogrel Bisulfate [Plavix] 75 mg PO DAILY 03/14/18 Ezetimibe [Zetia] 10 mg PO DAILY 03/14/18 Fenofibrate Nanocrystallized [Triglide] 160 mg PO DAILY 03/14/18 Lisinopril [Zestril] 40 mg PO BID 03/14/18 Metoprolol Tartrate [Lopressor (beta vee)] 50 mg PO BID 03/14/18 Niacin 500 mg PO DAILY 03/14/18 metFORMIN HCl [Glucophage] 1,000 mg PO BIDCM 03/14/18 Tamsulosin HCl [Flomax] 0.4 mg PO DAILY 11/06/18 Amlodipine [Norvasc] 10 mg PO DAILY 11/22/20 Ciprofloxacin [Cipro] 500 mg PO BID #6 tab 11/23/20 Hydrocodone Bitart/Apap 5-325 [Quinault 5MG-325MG] 1 tablet PO Q4H PRN PRN 7 Days #14 tablet 11/23/20 Primary Care Physician: Brad Renner MD [Primary Care Provider] - Test Results: Test results from this visit will be discussed in further detail at your follow- up appointment, if applicable. Please Follow Up With: Martin Cordon MD - [phone] When: please call to make an appointment.
[2020-11-23] MEDS: Lubricating Jelly 60 GM Tube 30 GM TOPICAL (12:59)
--- NOTE | 2020-11-23 13:02 | PCM.OPRPT ---
Report of Operation Date of Procedure: 11/23/20 Pre-Operative Diagnosis: Left obstructing calculus Post-Operative Diagnosis: Same Surgery/Procedure Performed:: Cystoscopy and left stent placement, left retrograde pyelogram interpretation fluoroscopic images. Description of Surgical Findings:: Patient was taken back to the operating room after induction of general anesthesia, the patient was placed in dorsolithotomy position. The urethra and genitals were prepped and draped in usual sterile fashion. Using a 21 Ethiopian rigid cystourethroscope the entire length of the urethra was normal then went into the bladder. Identified the trigone the left and right ureteral orifice. I then cannulated the left orifice and advanced a wire up into the kidney. I then backloaded a 5 Ethiopian open ended catheter over the wire and injected contrast to delineate the anatomy. After the retrograde was performed I then used fluoroscopic images and guidance to advanced a wire up into the kidney and over the 0.038 glidewire I advanced a 6 Ethiopian by 26 cm double pigtail stent. I then pulled the 0.038 Glidewire off and the stent coiled in the kidney bladder good position. The bladder was then drained. We confirmed the position of the stent by fluoroscopy. Patient anesthetic was reversed and was taken back to the PACU in good condition. Type of Anesthesia:: General Drains: left stent - Admit VTE Documentation VTE Present on Admission: No VTE Mechan Device Prophylaxis: SCD's
[2020-11-23] MEDS: Cilostazol 50 MG Tablet 100 MG PO (15:11)
[2020-11-23] MEDS: Fenofibrate 145 MG Tablet PO (15:11)
[2020-11-23] MEDS: Ezetimibe 10 MG Tablet PO (15:11)
[2020-11-23] MEDS: Niacin SA 500 MG Tablet PO (15:11)
[2020-11-23] MEDS: Tamsulosin HCl 0.4 MG Capsule PO (15:11)
== END 2020-11-23 12:43 | disposition home or self-care (01) ==
LOC: ED 21:53 → PCU 22:06
PROVIDERS: Anesthesiology; Admitting Provider Urology; Emergency Provider Emergency Medicine; PCP Family Medicine; Visit Provider Urology
PROC: (CPT 52332; principal; 2020-11-23 12:35)
DX: N20.1 Calculus of ureter (principal); I25.10 Atherosclerotic heart disease of native coronary artery without angina pectoris; G47.33 Obstructive sleep apnea (adult) (pediatric); E11.51 Type 2 diabetes mellitus with diabetic peripheral angiopathy without gangrene; I10 Essential (primary) hypertension; E78.00 Pure hypercholesterolemia, unspecified; Z79.899 Other long term (current) drug therapy; Z79.02 Long term (current) use of antithrombotics/antiplatelets; Z79.82 Long term (current) use of aspirin; Z79.84 Long term (current) use of oral hypoglycemic drugs; Z95.1 Presence of aortocoronary bypass graft
CPT/HCPCS: 52332; 74177; 76000; 80048; 80053; 81001; 83036; 83690; 85025; 85610; 87426; 93005; 94002; 94003; 96361; 96365; 96366; 96375; 96376; 99218; 99285; J7030; Q9967; C1769; C2617; G0378; J0744; J2405

== ENCOUNTER 2020-11-23 13:39 | Outpatient (RCR) | payer MEDICARE, SELFPAY ==
[2019-04-12 09:53] VITALS: BMI 43.7
== END 2020-11-23 23:59 ==
LOC: IMMUN 13:39
PROVIDERS: PCP Family Medicine; Visit Provider Family Medicine
DX: Z23 Encounter for immunization (principal)
CPT/HCPCS: 0011A; 0012A

== ENCOUNTER 2020-12-04 10:18 | Day surgery (SDC) | payer MEDICARE, BC, SELFPAY ==
[2020-11-23 11:59] VITALS: BMI 42.0
--- NOTE | 2020-11-30 08:57 | RAD_ITS ---
HISTORY: Left kidney stone. Preop. Comparison study is a CT scan of the abdomen and pelvis from November 22, 2020. 3 images. Findings: Abdominal aortic bifurcated stent graft device remains. A left ureteric stent has been placed. Severe calcific ASCVD with previous arteriotomy and the left inguinal region is unchanged. On the CT scan and the stone was at the level of the L4-L5 interspace. No stone is perceived within that location adjacent to the left ureteric stent on the current study. RAD/Abdomen Single View IMPRESSION: Left ureteric stent likely within adequate position. Left ureteric stone from the CT scan is not identified on this x-ray. Abdominal aortic stent graft device with severe atherosclerosis. at [id number] Reported and signed by: Marcus Mondragon MD Electronically Signed: Marcus Mondragon MD at 23:16 EST Tel , Service support ,
[2020-12-04] MEDS: Lactated Ringers 1,000 ML 100 ML IV ×2 (11:02→15:37)
[2020-12-04 11:04] VITALS: BP 136/79; PULSE 58; RESP 16; TEMP 36.8; O2SAT 99; BMI 41.4
[2020-12-04 11:15] LABS: Bedside Glucose 117 mg/dL (70-110)
--- NOTE | 2020-12-04 14:00 | PCM.HP.STD ---
Problem List (1) Calculus of proximal left ureter Status: Acute History of Present Illness Date of Admission: 12/04/20 Chief Complaint: Left ureteral calculus status post stent The patient is a 70 year old male status post stent placement on the left side for obstructing stone and infection he now presents the hospital for laser lithotripsy of the stone and stent removal on the left side Past Medical History Medical History: Medical History (Last Reviewed 12/04/20 @ 14:[address] Martin Cordon MD) CAD (coronary artery disease) I25.10 DM2 (diabetes mellitus, type 2) E11.9 SACHA (obstructive sleep apnea) G47.33 PAD (peripheral artery disease) I73.9 HTN (hypertension) I10 Allergies Xzhspln-Yjf-Zby Reductase Inhibitor Allergy (Verified 12/04/20 10:39) Pain in joints Home Medications: Ambulatory Orders Medication Instructions Recorded Aspirin E.C. [Ecotrin] 81 mg PO DAILY@0800 03/14/18 Cholecalciferol (Vitamin D3) 4,000 unit PO DAILY 03/14/18 [Vitamin D3] Cilostazol 100 mg PO BID 03/14/18 Clopidogrel Bisulfate [Plavix] 75 mg PO DAILY 03/14/18 Ezetimibe [Zetia] 10 mg PO DAILY 03/14/18 Fenofibrate Nanocrystallized 160 mg PO DAILY 03/14/18 [Triglide] Lisinopril [Zestril] 40 mg PO BID 03/14/18 Metoprolol Tartrate [Lopressor 50 mg PO BID 03/14/18 (beta vee)] Niacin 500 mg PO DAILY 03/14/18 metFORMIN HCl [Glucophage] 1,000 mg PO BIDCM 03/14/18 Tamsulosin HCl [Flomax] 0.4 mg PO DAILY 11/06/18 Amlodipine [Norvasc] 10 mg PO DAILY 11/22/20 Surgical History: Surgical History (Last Reviewed 12/04/20 @ 14:[address] Martin Cordon MD) Hx of CABG Z95.1 S/P peripheral artery angioplasty with stent placement Z95.820 Surgical History: no surgical history Smoking Status: Former smoker Tobacco Use: Non-smoker - *Family History Maternal History Items: - - no CVA Review of Systems Constitutional: Denies: Chills, Fever, Weight Change HEENT: Denies: Head Aches, Sinus Congestion, Sinus Drainage Cardiovascular: Denies: Chest Pain, Palpitations Respiratory: Denies: Cough, Shortness of breath at rest, Sputum production Gastrointestinal: Denies: Abdominal Pain, Nausea, Vomiting Genitourinary: Denies: Dysuria Musculoskeletal: Denies: Joint Pain, Joint Tenderness Skin: Denies: Rash, Wounds Neurological: Denies: Numbness, Tingling, Focal weakness Psychiatric: Denies: Anxiety, Depression, Homicidal Ideations, Suicidal Ideations Hematologic/ Lymphatic: Denies: Easy Bruising, Easy Bleeding VTE Information - Inpt Only VTE Present on Admission: No VTE Mechan Device Prophylaxis: SCD's - Physical Exam Vitals/I&O's: Vital Signs Temp Pulse Resp BP Pulse Ox 98.3 F 58 L 16 136/79 H 99 12/04/20 11:04 12/04/20 11:04 12/04/20 11:04 12/04/20 11:04 12/04/20 11:04 Oxygen Delivery Method Room Air Weight: 131 kg Body Mass Index (BMI) 41.4 Finger Stick Blood Glucose 188 General: Alert, Oriented x3, Cooperative HEENT: Atraumatic, PERRLA, EOMI, Normocephalic Neck: Supple, No JVD, Negative Carotid Bruits Lungs: Clear to auscultation, Normal air movement Cardiovascular: Regular rate, No murmurs Abdomen: Bowel Sounds Present, Soft, Non Tender Extremities: No edema, Capillary Refill Less than 3 Seconds Skin: No rashes, No breakdown Musculoskeletal: No Tenderness to Palpation of Joints or Extremities Neurological: Cranial nerves II-XII grossly intact Psych/Mental Status: Normal Affect, Appropriate Microbiology Past 72 Hours 12/03/20 10:00 Interface Orders SARS-CoV-2 Antigen (Rapid) - Final Laboratory Results 12/04/20 10:53: POC Glucose 117 H Current Medications Lactated Ringer's () 1,000 mls @ 100 mls/hr IV .Q10H VIVIEN Last Admin: 12/04/20 11:02 Dose: 100 mls/hr Documented by: Assessment/Plan All Active Problems (Last Reviewed 12/04/20 @ 14:[address] Martin Cordon MD) Calculus of proximal left ureter (Acute) Plan to proceed with left ureteroscopy and laser of stone and stent removal.
--- NOTE | 2020-12-04 14:05 | DCINST_ITS ---
Discharge Diet: Light diet - advance as tolerated Discharge Activity: Return to Normal Activity Call your doctor if your incision/area has: Sudden Increased Bleeding Call your doctor if you observe: Fever of 101 or Higher Suture Line Care: Avoid Pulling/Pushing, Avoid Pinching/Bending Instructions: Treating Kidney Stones: Ureteroscopic Stone Removal Allergies/Adverse Reactions: Allergies Xpuzmpl-Nts-Gle Reductase Inhibitor Allergy (Verified 12/04/20 10:39) Pain in joints Medications to take at Discharge Aspirin E.C. [Ecotrin] 81 mg PO DAILY@0800 03/14/18 Cholecalciferol (Vitamin D3) [Vitamin D3] 4,000 unit PO DAILY 03/14/18 Cilostazol 100 mg PO BID 03/14/18 Clopidogrel Bisulfate [Plavix] 75 mg PO DAILY 03/14/18 Ezetimibe [Zetia] 10 mg PO DAILY 03/14/18 Fenofibrate Nanocrystallized [Triglide] 160 mg PO DAILY 03/14/18 Lisinopril [Zestril] 40 mg PO BID 03/14/18 Metoprolol Tartrate [Lopressor (beta vee)] 50 mg PO BID 03/14/18 Niacin 500 mg PO DAILY 03/14/18 metFORMIN HCl [Glucophage] 1,000 mg PO BIDCM 03/14/18 Tamsulosin HCl [Flomax] 0.4 mg PO DAILY 11/06/18 Amlodipine [Norvasc] 10 mg PO DAILY 11/22/20 Ciprofloxacin [Cipro] 500 mg PO BID #10 tab 12/04/20 Oxycodone HCl/Acetaminophen [Percocet 5/325] 1 tab PO Q4H PRN PRN 7 Days #20 tab 12/04/20 The following prescriptions were given: Ciprofloxacin [Cipro] 500 mg PO BID #10 tab Prescription Printed Oxycodone HCl/Acetaminophen [Percocet 5/325] 1 tab PO Q4H PRN PRN 7 Days #20 tab PRN Reason: Pain Prescription Printed Primary Care Physician: Brad Renner MD [Primary Care Provider] - Test Results: Test results from this visit will be discussed in further detail at your follow- up appointment, if applicable. Please Follow Up With: Martin Cordon MD When: in 2 weeks, please call to make an appointment.
[2020-12-04] MEDS: Cefazolin 2 GM in 0.9% Normal Saline 100 ML IV (14:07)
--- NOTE | 2020-12-04 14:54 | PCM.OPRPT ---
Problem List (1) Calculus of proximal left ureter Status: Acute Report of Operation Date of Procedure: 12/04/20 Pre-Operative Diagnosis: Left proximal ureteral calculi status post stent Post-Operative Diagnosis: The same Surgery/Procedure Performed:: Left ureteroscopy, left retrograde pyelogram, balloon dilation of the ureter, left ureteroscopy laser lithotripsy of stone and stent placement. Description of Surgical Findings:: This is a patient who presents to the hospital for treatment for an obstructing distal ureter calculi. I discussed with the patient how the surgery would be performed and we reviewed the risks and benefits of the surgery. The risk and benefits include the risk of failure to remove the stone completely and that the patient may need multiple procedures. We discussed the risk of an infection, the risk of bleeding. We discussed the very rare risk of serious complicated injury to the ureter. The patient understands that if the stone is not able to be removed safely that we may abort the procedure and place a stent. After full discussion and all questions address with the patient the consent form was signed the side was marked appropriately and the patient was taken back to the operating room for the procedure. The patient was taken back to the operating room. After induction of anesthesia by the anesthesiology team the patient was placed in dorsolithotomy position. The genitals were prepped and draped in usual sterile fashion. I went into the bladder with a 21 Georgian rigid cystourethroscope through the urethra. Upon entering the bladder I inspected the trigone the left and right ureteral orifice and the bladder itself. I then used a grasper to grab and remove the exciting left sent, I then backloaded a 0.038 glidewire up the sent advanced a 0.038 Glidewire up into the kidney. Then over the Glidewire I advanced a 5 Fr Ureteral catheter and performed a retrograde pyelogram with about 10cc of contrast, to delineate the anatomy and identify the stone location. Then a ureteral balloon dilator was advanced over the wire and the distal ureter was balloon dilated with a 12 Fr x 5cm balloon dilator. After 3 minutes of dilating the ureter the balloon was backloaded off the 0.038 glidewire then the safety wire was left in place. I then placed a second 0.038 Guidewire as a working wire and over the working 0.038 guidewire I went in with a Flexible 7.9fr ureteroscope. I was able to go inside with the 7.9Fr flexible utereroscope and I pulled out the working guidewire and then through the 7.9 fr flexible ureteroscope I ascended up the ureter with direct visualization until the stone was located, then I engaged the stone with laser lithotripsy using a 270miron laser fiber with energy setting of 6 Hertz and 0.6 J until the stone was lasered into tiny little pieces that should pass on their own. After successful etelvina lithotripsy of the stone and stone fragements, a retrograde pyelogram was performed with 10cc of contrast and no extravasation of contrast or perforation was identified in the ureter. I then backed out of the ureter left the wire in place and then over the 0.038 guidewire I placed a double coiled pigtail ureteral stent. The ureteral stent was advanced over the 0.038 guidewire under direct fluoroscopic guidance and direct cystoscopic visual guidance, once the stent was in good position I pulled the wire and the stent coiled in the kidney and bladder in good position. I then drained the patient's bladder and the cystoscope was removed and the patient was taken back to the recovery room in good position. The patient was given discharge instructions to call the office for instructions on when to come to the office to have the stent removed. Type of Anesthesia:: General Drains: stent left - Admit VTE Documentation VTE Present on Admission: No VTE Mechan Device Prophylaxis: SCD's
[2020-12-04 15:05] VITALS: BP 117/78; BP 136/79; PULSE 88; RESP 16; TEMP 36.5; O2SAT 98
[2020-12-04 15:15] VITALS: BP 128/83; BP 136/79; PULSE 87; RESP 16; O2SAT 96
[2020-12-04] MEDS: Ketorolac 15 MG/ML Vial IV (15:24)
[2020-12-04 15:30] VITALS: BP 125/67; BP 136/79; PULSE 82; RESP 16; TEMP 36.9; O2SAT 95
[2020-12-04 16:15] VITALS: BP 136/79; BP 138/74; PULSE 88; RESP 16; TEMP 36.4; O2SAT 96
== END 2020-12-04 16:20 | disposition home or self-care (01) ==
LOC: SDC 10:18 → AC 10:19
PROVIDERS: PCP Family Medicine; Referring Provider Urology; Visit Provider Urology
PROC: 0TJ98ZZ Inspection of Ureter, Via Natural or Artificial Opening Endoscopic (ICD-10-PCS; CPT 52352; principal; 2020-12-04 12:25)
DX: N20.2 Calculus of kidney with calculus of ureter (principal); I25.10 Atherosclerotic heart disease of native coronary artery without angina pectoris; G47.33 Obstructive sleep apnea (adult) (pediatric); I10 Essential (primary) hypertension; E11.51 Type 2 diabetes mellitus with diabetic peripheral angiopathy without gangrene; Z79.899 Other long term (current) drug therapy; Z79.02 Long term (current) use of antithrombotics/antiplatelets; Z79.82 Long term (current) use of aspirin; Z79.84 Long term (current) use of oral hypoglycemic drugs; Z87.891 Personal history of nicotine dependence; Z20.828 Contact with and (suspected) exposure to other viral communicable diseases; E78.00 Pure hypercholesterolemia, unspecified; Z95.1 Presence of aortocoronary bypass graft
CPT/HCPCS: 52356; 74018; 82962; 87426; C9803; J7120; C1769; C2617; J2405

== ENCOUNTER 2022-04-06 06:17 | Day surgery (SDC) | payer MEDICARE, BC, SELFPAY ==
--- NOTE | 2022-03-25 07:14 | HP.PCM_ITS ---
History and Physical History and Physical? Patient Name: Angel Anderson: 1950 From:? KENNA FLYOD PA-C? DATE OF SURGERY:? 04/06/2022 SCHEDULED PROCEDURE: Direct anterior left total hip arthroplasty HISTORY OF PRESENT ILLNESS: Patient is a 71-year-old male with a chief complaint of left hip pain. Patient complains of constant pain with 2 month duration. The pain is 5 on a scale of 10, 9 with activity. The pain is increased with stairs, walking. Patient reports start up pain. The pain is located in the left lateral hip with radiating pain i nto the left groin and anterior thigh. The patient states that the pain does not awaken them at night. Activity modification include a reduced ability to perform normal daily activities including getting dressed and putting on socks and shoes. The patient does not perceive that the affected leg is shorter than the other. Previous treatments include Tylenol with no relief, use of a cane over the last 2 weeks.? The patient is unable to use NSAIDS due to use of a blood thinner. Per Dr. Renner's last clinic note it states he was to try aquatic therapy and Dr. Renner follow-up in 6 weeks.? Patient states that [employer] did not call them back and they were not able to fit him in and he went ahead and scheduled surgery. REVIEW OF SYSTEMS: Review Of Systems: Constitutional: Denies change in appetite, fever and weight change. Cardiovasular: Denies chest pain, heart murmur and irregular heartbeat. Respiratory: Denies cough, pneumonia, shortness of breath, tuberculosis and wheezing. Gastrointestinal: Denies constipation, diarrhea, heartburn, nausea, rectal itching, bloody stools and vomiting. Genitourinary: . (F Genital Sx) Denies incontinence. Musculoskeletal: Reports leg swelling, pain and trouble walking, but denies weakness. Skin: Denies Raynaud's, history of shingles and tattoo. Neurological: Denies ambulatory dysfunction, dizziness, numbness/tingling and tremor. Psychiatric: Denies anxiety, insomnia and stress. Hematologic/Lymphatic: Denies anemia, bleeding/bruising tendency and past transfusion. Reviewed and updated. PAST MEDICAL HISTORY: Advance Care Plan: Other Directive, LIVING WILL Effective Date: 12/31/2021 Comments: & DAUGHTER Past Medical History: Medical Problems: Arthritis, Coronary Artery Disease (CAD), Diabetes, Hard of Hearing, High Blood Pressure, Hypercholesterolemia, Kidney Stones, Sleep Apnea, Stroke, Vascular Disease/ Peripheral Covid- 19 - (08/2021) Accidents: None Surgical Hx: Appendectomy - (1968) [facility] Colon Resection - (1991) [facility] Heart Bypass (CABG) - (2011) [facility] Kidney Stones - (2020) [facility] Tonsillectomy - (1955) Knee Arthroscopy RT - (2011) [facility] Laminectomy - (1972) [facility] Back Surgery - 1985 Stent In Left Leg - 2002 Aneurysm - (2016) [facility]- 4 WAY STENT Anesthesia Complications: None Assistive Devices: Cpap, Glasses Reviewed and updated. SOCIAL HISTORY: Social History: Marital: .Occupation: Retired.Work Status: Retired.Hand Dominance: Right- handed. Personal Habits:? Cigarette Use: Former.Smokeless Tobacco: Never Used Smokeless Tobacco.E-Cigarette Use: Never used.Alcohol: Occasionally.Drug Use: Denies Use.Enjoy Exercising: Never Exercises. Reviewed and updated. VITALS: Ht: 69.6 Wt: 280lb Wt k.008 BMI: 40.6 BP: 132/64 Pulse: 79 Resp: 14 T: 97.3 T: 36.3C Pain Level: 5 O2SatR: 98 ALLERGIES: Statin Drugs? MEDICATIONS: Tramadol HCL 50 mg 1 by mouth every 6 hours as needed pain, Clopidogrel Bisulfate 75 mg 1 by mouth every day, Metoprolol Tartrate 25 mg 2 by mouth every day, Niacin 500 mg once a day, Travatan Z 0.004 % 1 drop each eye daily, Cilostazol 50 mg 1 by mouth twice a day, Lisinopril 40 mg 1 by mouth every day, Metformin HCL 1000 mg 1 by mouth twice a day, Vitamin D 50 mcg (1999 Ut) 2po qday, Fenofibrate 160 mg 1 by mouth every day, Tamsulosin HCL 0.4 mg 1 by mouth every day, Amlodipine Besylate 10 mg 1 by mouth every day, Potassium Chloride Cristine ER 15 Meq 1po qday, Isosorbide Mononitrate ER 30 mg 1 by mouth every day, Ranolazine ER 500 mg 1 tab every 12 hours, Zetia 10 mg, Tylenol Extra Strength 500 mg 2 by mouth every 8 hours PRE-OP EXAM:? General appearance:NORMAL? ? ? Other: Eyes: Conjunctivae and lids: NORMAL? Pupils: ERR Ears, Nose, Mouth, and Throat: NORMAL? Other: Inspection of lips, teeth and gums: NORMAL? ?Other: Neck: Examination of neck: no masses noted. Respiratory: Assessment of respiratory effort: NORMAL? ?Other: ?Auscultation of lungs: clear to auscultation no wheezes, rhonchi or rales. Cardiovascular:? Auscultation of heart: regular rate and rhythm, no murmurs, gallops or rubs. Exam of carotid arteries: NORMAL? ?Other: Gastrointestinal:? Exam of abdomen: soft, nontender, nondistended bowel sounds present. Lymphatic:? Palpation of nodes in neck:? NORMAL? ? ?Other: ? Palpation of nodes in Axillae: NORMAL? ?Other: Neurological: see below Psychiatric:? Orientation to time, place and person: NORMAL? ? ?Other: ?Mood and affect: NORMAL? ?Other: PHYSICAL EXAMINATION: ?Exam: Const: Appears healthy.? No signs of apparent distress present.? Alert and oriented x 3.? Musculo: Antalgic gait with use of a cane? Hips: ?Insp/Palp: Right hip flexion 90 degrees, internal rotation 5 degrees, external rotation 10 degrees. 5/5 hip flexion strength Left hip: flexion 80 degrees with obligatory external rotation, internal rotation 5 degrees, external rotation 10 degrees. 3/5 hip flexion strength. Groin pain is reproduced with flexion, adduction and internal rotation.? No erythema or moisture in the abdominal crease.?? Skin: Skin is warm, dry and intact.? Neuro: Sensation to light touch is intact in the lower extremities deep peroneal, lower extremities dorsal cutaneous, lower extremities saphenous, lower extremities sural and lower extremities tibial nerve distribution.? ? IMAGING STUDIES: Complete series of the left hip with AP pelvis, AP hip and crossfire lateral reviewed today reveal joint space narrowing, subchondral sclerosis and osteophyte formation consistent with severe stage IV osteoarthritis IMPRESSION: 1.? Grade 4 osteoarthritis left hip 2.? Coronary artery disease 3.? Diabetes 4.? Hard of hearing 5.? Hypertension 6.? Hypercholesterolemia 7.? Kidney stones 8.? Obstructive sleep apnea 9.? Stroke 10.? Peripheral vascular disease PLAN: Patient denies history of DVT or PE, open wounds or sores over the body, no allergies to antibiotics and no current antibiotic use. No current dental issues We will resume Cliostazol and clopidogrel postop day 1 for DVT prophylaxis At this time patient has consented to proceed with a direct anterior left total hip arthroplasty.? Dr. Renner did discuss and review with the patient all treatment options including surgical versus nonsurgical options.? Patient does wish to proceed with the above-stated procedure.? Potential risk, benefits, and complications of the procedure were discussed in detail including but not limited to , infection, nerve and blood vessel damage, persistent pain, numbness, tingling, paresthesias, blood clot, pulmonary embolism, and requirement for possible further surgery.? The patient expressed full understanding and has no further questions for the doctor.? Patient does agree to proceed with the above-stated procedure and has signed the surgery consent form. We are still waiting primary care and cardiology clearance Last A1c he states was 5 something I have reviewed the [place] Automated Rx Reporting System (OARRS) report for this patient for refill pattern and other prescriber involvement as part of the appropriate surveillance for the provision of acute and chronic controlled medications.? The report was requested and reviewed on the date of this entry and was considered in the prescribing process. Discussed with the patient the risks associated with the COVID-19 virus includ ing the risk of exposure while at the hospital.? The patient was reassured local hospitals have low infection rates and taken all necessary precautions to limit patient exposure to COVID-19.? Limiting the patient's time in the hospital may decrease their exposure to COVID-19.? The patient was notified that we will need to comply with any screening or testing the hospital wishes to perform and that surgery may be delayed for any positive test results. ___? I have re-examined the patient.? There are no clinical changes since date of exam. ___? See progress notes for changes. ___? Dictated on admission Date: ? ? ?Time: Signature:
[2022-04-06 06:48] VITALS: BP 136/59; PULSE 61; RESP 16; TEMP 36.6; O2SAT 99; BMI 40.4
--- NOTE | 2022-04-06 07:00 | RAD_ITS ---
PROCEDURE: Left hip injection. DATE OF EXAMINATION: 04/06/2022 INDICATION: Male, 71 years old. Left hip pain. FLUOROSCOPY TIME (if supplied): (10 seconds) minutes/seconds. 2 images were obtained. RAD/Fluoro Guided Needle Placement IMPRESSION: Intraoperative imaging provided for left hip injection. Electronically Signed: Demetrio Phoenix MD at 9:45 EDT ,
--- NOTE | 2022-04-06 07:08 | OP.PCM_ITS ---
Report of Operation Date of Procedure: 04/06/22 Pre-Operative Diagnosis: Left hip OA Post-Operative Diagnosis: Left hip OA Surgery/Procedure Performed:: Left hip intra-articular corticosteroid injection Description of Surgical Findings:: Confirmed injection with dye Surgeon: Lazarus Renner rotary saw operator: None Type of Anesthesia: Local Special Medications: Kenalog and 0.25% sensorcaine Estimated Blood Loss (mL): 0 Description of Procedure: Patient's left hip was marked in the preoperative area. Patient was brought back to the operating room and the placed in supine position. Anesthesia assumed control the C-spine and airway and remained controlled throughout the remainder of the procedure. Fluoroscopy was used to identify the patient's hip and all bony prominences were identified and well-padded. After we localized the hip on fluoroscopy the area was marked and cleaned. The surgeon donned sterile gloves. Femoral artery was palpated. Local anesthetic was used around the insertion site. Laparoscopy was used to guide the needle into the joint. Dye was injected into the joint to verify appropriate positioning. Repositioning was done as needed. Once were in appropriate position 2 cc of Kenalog and 3 cc of local were given. Needle was removed and pressure was held. Band-Aid was placed and patient was transferred to the [facility] for recovery then to the PACU. Postop plan: Patient was instructed on 2 separate medications landed on the joint today. 1 for long-term pain relief. Patient was instructed to call the office when pain returned. Complications none Admit VTE Documentation VTE Present on Admission: No VTE Mechan Device Prophylaxis: None VTE Pharm Prophylaxis ordered?: No Reason prophylaxis not ordered:: Procedure Not Indicated
[2022-04-06 07:21] LABS: Bedside Glucose 107 mg/dL (74-106)
[2022-04-06] MEDS: Triamcinolone Acetonide 40 MG/ML Vial (08:04)
[2022-04-06] MEDS: Lidocaine 1% (5 ml sdv) 5 ML Vial (08:04)
[2022-04-06] MEDS: Bupivacaine 0.25% 30 ML Vial (08:04)
== END 2022-04-06 08:51 | disposition home or self-care (01) ==
LOC: SDC 06:18 → AC 06:20
PROVIDERS: PCP Family Medicine; Visit Provider Specialist
PROC: 3E0U3GC Introduction of Other Therapeutic Substance into Joints, Percutaneous Approach (ICD-10-PCS; CPT 20610; principal; 2022-04-06 07:55)
DX: M16.12 Unilateral primary osteoarthritis, left hip (principal); E11.51 Type 2 diabetes mellitus with diabetic peripheral angiopathy without gangrene; I25.10 Atherosclerotic heart disease of native coronary artery without angina pectoris; I10 Essential (primary) hypertension; E78.00 Pure hypercholesterolemia, unspecified; Z87.442 Personal history of urinary calculi; G47.30 Sleep apnea, unspecified; Z86.73 Personal history of transient ischemic attack (TIA), and cerebral infarction without residual deficits; Z79.899 Other long term (current) drug therapy; Z79.84 Long term (current) use of oral hypoglycemic drugs
CPT/HCPCS: 20610; 76000; 77002; 82962

== ENCOUNTER → 2023-12-06 | Outpatient (CLI) | payer MEDICARE, BC, SELFPAY ==
--- NOTE | 2023-12-06 09:37 | RAD_ITS ---
STUDY: X-RAY - THORACIC SPINE REASON FOR EXAM: Male, 73 years old. Pain. TECHNIQUE: 3 view(s) of the thoracic spine were obtained. COMPARISON: None. FINDINGS: Osteopenia. Mild increased kyphosis. No scoliosis. Normal vertebral bodies. Diffuse mild intervertebral disc space narrowing with osteophytes. Sternotomy wires. RAD/Thoracic Spine 2 Views IMPRESSION: Osteopenia with diffuse mild thoracic spondylosis. Electronically Signed: Angel Gates MD at 14:45 EDT ,
--- NOTE | 2023-12-06 09:40 | RAD_ITS ---
STUDY: X-RAY - LUMBAR SPINE REASON FOR EXAM: Male, 73 years old. Pain. TECHNIQUE: 5 view(s) of the lumbar spine, including lateral flexion and extension views, were obtained. COMPARISON: None FINDINGS: Osteopenia. Normal lordosis. No scoliosis. Normal alignment of the vertebral bodies. Mild diffuse lower thoracic and lumbosacral facet sclerosis. Intervertebral disc space narrowing diffusely but most marked at L2-3, L3-4, L4-5 and L5-S1 with posterior rods most marked at L5-S1. Limited flexion and extension with no abnormal motion. Lower aortic and bilateral iliac graft. RAD/Lumbar Spine 2 or 3 Views IMPRESSION: Osteopenia with diffuse predominantly lower lumbosacral spondylosis. Limited flexion and extension with no abnormal motion. Electronically Signed: Angel Gates MD at 14:48 EDT ,
== END | disposition home or self-care (01) ==
LOC: RAD 09:35
PROVIDERS: PCP Family Medicine; Referring Provider Anesthesiology Pain Medicine; Visit Provider Anesthesiology Pain Medicine
DX: M96.1 Postlaminectomy syndrome, not elsewhere classified (principal)
CPT/HCPCS: 72070; 72100

== ENCOUNTER → 2024-06-10 | Outpatient (CLI) | payer MEDICARE, BC, SELFPAY ==
--- NOTE | 2024-06-10 11:00 | MRI_ITS ---
STUDY: MRI RIGHT SHOULDER REASON FOR EXAM: Male, 73 years old. PROXIMAL BICEPS TENDON RUPTURE RT TECHNIQUE: Standardized fat and water weighted pulse sequences were obtained in all 3 orthogonal planes. COMPARISON: None. FINDINGS: There is supraspinatus, infraspinatus, and subscapularis tendinosis without a full-thickness tear. Normal teres minor tendon. Normal supraspinatus muscle. Normal infraspinatus muscle. Normal subscapularis muscle. Normal teres minor muscle. There is a tear of the posterior glenoid labrum (axial PD series 8 images 22-23). Intact glenohumeral articulation. Normal humeral head and visualized proximal humerus. There is a tear of the long biceps tendon, with frayed tendon fibers in the bicipital groove. There is hypertrophic acromioclavicular arthrosis, with inferior osteophyte formation, with mild effacement of the supraspinatus myotendinous junction. There is a Type II morphology (curved), with a neutral orientation. There is no subacromial-subdeltoid bursal fluid. There is mild subcoracoid bursitis. Normal visualized coracohumeral and coracoacromial ligaments. Normal quadrilateral space. Normal axillary space. Normal deltoid muscle. Normal trapezius muscle. MRI/Upper Ext Joint Only(Routine) IMPRESSION: Supraspinatus, infraspinatus, and subscapularis tendinosis without a full-thickness rotator cuff tear. Hypertrophic acromioclavicular arthrosis, with inferior osteophyte formation, with mild effacement of the supraspinatus myotendinous junction. Posterior glenoid labral tear. Long biceps tendon tear, with frayed tendon fibers in the bicipital groove. Mild subcoracoid bursitis. Electronically Signed: Blas Montelongo MD at 12:33 EDT ,
== END | disposition home or self-care (01) ==
LOC: MRI 10:19
PROVIDERS: PCP Family Medicine; Referring Provider Specialist; Visit Provider Specialist
DX: S46.101A Unspecified injury of muscle, fascia and tendon of long head of biceps, right arm, initial encounter (principal)
CPT/HCPCS: 73221

== ENCOUNTER → 2024-06-26 | Outpatient (CLI) | payer MEDICARE, BC, SELFPAY ==
[2024-06-26] MEDS: Lidocaine 2% (5ml sdv) 5 ML VIAL.MPF INFILT (09:48)
[2024-06-26] MEDS: Lidocaine 1% (5 ml sdv) 5 ML Vial 4 ML OPERA.SITE (09:50)
[2024-06-26] MEDS: Triamcinolone Acetonide 40 MG/ML Vial 80 MG INTRAARTIC (09:50)
--- NOTE | 2024-06-26 09:56 | PCM.OP.PRO ---
Procedure Report Date of Procedure: 06/26/24 Assessment & Plan Assessment/Plan (1) Right shoulder strain: QUALIFIERS: Encounter type: initial encounter Qualified Code(s): S46.911A - Strain of unspecified muscle, fascia and tendon at shoulder and upper arm level, right arm, initial encounter PLAN: PROCEDURE: Fluoroscopic Guided right shoulder injection ORDERING PROVIDER: Dr. Renner INDICATION: Male, 73 years old. Right shoulder strain. PROVIDER: APULINA Saunders FLUOROSCOPY TIME (if supplied): 0 minutes/27 seconds. 4.4 mGy CONSENT: The risks, benefits, and alternatives to the procedure were explained to the patient. The specific risks of bleeding, infection, and neurovascular injury were detailed and accepted. Witnessed informed consent was obtained. TECHNIQUE: The right glenohumeral space access site was prepped with chlorhexidine and draped in sterile fashion. 2% Lidocaine was administered subcutaneously for local anesthesia. A 22-gauge spinal needle was positioned under radiographic fluoroscopic localization. Approximately 2 cc of Isovue 300 instilled for localization purposes. Medication was then injected. MEDICATIONS: 80 mg of triamcinolone and 4 ml of 1% lidocaine. The spinal needle was removed, and a dressing was applied. The patient tolerated the procedure well without any immediate complications. IMPRESSION: Successful fluoroscopic guided right shoulder injection. Procedures Radiology Radiology Xray Procedures: [id number] Inj Asp major Joint - Hip, Knee Multi Select Codes Radiology Rad Xray Procedures: [id number] Fluoroscopic guidance for needle placement
== END | disposition home or self-care (01) ==
LOC: RAD 09:10
PROVIDERS: PCP Family Medicine; Referring Provider Specialist; Visit Provider Specialist
DX: S46.111A Strain of muscle, fascia and tendon of long head of biceps, right arm, initial encounter (principal)
CPT/HCPCS: 20610; 77002; Q9967

== ENCOUNTER 2024-06-28 22:14 | Inpatient (IN) | payer MEDICARE, BC, SELFPAY ==
[2024-06-28 22:15] VITALS: BP 125/82; PULSE 107; RESP 23; TEMP 36; O2SAT 93; O2SAT 96; BMI 44.5
[2024-06-28 22:23] VITALS: O2SAT 93
--- NOTE | 2024-06-28 23:13 | EKG12_ITS ---
Test Reason : REPEAT Blood Pressure : / mmHG Vent. Rate : 110 BPM Atrial Rate : 110 BPM P-R Int : 140 ms QRS Dur : 088 ms QT Int : 326 ms P-R-T Axes : 037 106 152 degrees QTc Int : 441 ms Sinus tachycardia with frequent and consecutive Premature ventricular complexes and Fusion complexes Rightward axis Nonspecific ST and T wave abnormality Abnormal ECG Confirmed by NUSRAT COON, ROSS ([id number]), tape editor MIGDALIA GEORGE ([id number]) on 07/02/2024 2:00:30 PM Referred By: Confirmed By:ROSS SILVERIO MD
--- NOTE | 2024-06-28 23:23 | EDS_ITS ---
HPI History of Present Illness Chief Complaint: Shortness of Breath Narrative Narrative: Chief complaint and HPI: Shortness of breath. 73-year-old male with history of CAD status post CABG, HTN, DM, HTN, previous tobacco abuse presents for evaluation of shortness of breath. Patient states on Monday he got a cortisone shot in his arm due to muscle pain. He states later in the evening he developed shortness of breath that has progressively worsened. He denies any fever, chills, chest pain, abdominal pain, nausea, vomiting. Denies any bilateral lower extremity swelling or pain. Denies any recent surgery or travel. Denies any sick contacts. Does endorse cough but otherwise denies URI type symptoms. Patient does not wear oxygen at home and is requiring 4 L nasal cannula. Review of systems: See HPI Medications: As listed on the chart Allergies: As listed on the chart PFSH: Per chart Vital signs: As listed on the chart. Reviewed. Physical exam: Gen: A&O x3, NAD Head: Normocephalic, atraumatic Eyes: No sclera icterus, conjunctiva clear ENT: Moist mucous membranes Neck: Trachea midline, No JVD CV: Tachycardic, regular rhythm, no murmurs, +1 pitting peripheral edema, Resp: Lungs diminished bilaterally and coarse, mildly tachypneic, on 4 L nasal cannula, dyspneic when speaking GI: Abd soft, non-distended, non-tender, no r/r/g Musc: Full ROM, no deformity Skin: Warm, dry Neuro: Alert, oriented, grossly intact, sensation intact Psych: Cooperative, appropriate mood and [facility] History Loss of hearing Wears glasses Diabetes Arthritis High cholesterol Back pain TIA (transient ischemic attack) Syncope Dietary restriction Former smoker CPAP (continuous positive airway pressure) dependence History of pain when walking History of edema Cardiology follow-up encounter Hx of aortic aneurysm HTN (hypertension) PAD (peripheral artery disease) CAD (coronary artery disease) Home Medications ?Medication ?Instructions ?Recorded ?Last Taken ?Type cholecalciferol (vitamin D3) 50 4,000 unit PO DAILY sup[pliment 03/14/18 04/06/22 History mcg (2,000 unit) capsule (Vitamin D3) cilostazol 100 mg tablet 100 mg PO BID 03/14/18 04/06/22 History clopidogrel 75 mg tablet 75 mg PO DAILY heart 03/14/18 04/06/22 History ezetimibe 10 mg tablet 10 mg PO DAILY cholesterol 03/14/18 04/06/22 History lisinopril 10 mg tablet 40 mg PO BID blood pressure 03/14/18 04/06/22 History metoprolol tartrate 50 mg tablet 25 mg PO DAILY heart 03/14/18 04/06/22 History tamsulosin 0.4 mg capsule (Flomax) 0.4 mg PO DAILY urine flow 11/06/18 04/06/22 History amlodipine 10 mg tablet 10 mg PO DAILY 11/22/20 04/06/22 History fenofibrate 160 mg tablet 160 mg PO DAILY high cholesterol 03/23/22 04/06/22 History isosorbide mononitrate 60 mg 60 mg PO DAILY 03/23/22 04/06/22 History tablet,extended release 24 hr ranolazine 500 mg tablet,extended 500 mg PO BID 03/23/22 04/06/22 History release,12 hr aspirin 81 mg tablet,delayed 81 mg PO DAILY 06/29/24 Unknown History release (Adult Low Dose Aspirin) latanoprost 0.005 % eye drops 1 drp ophthalmic (eye) DAILY 06/29/24 Unknown History metformin 500 mg tablet 500 mg PO BID 06/29/24 Unknown History metoprolol tartrate 25 mg tablet 25 mg PO BID 06/29/24 Unknown History nitroglycerin 0.4 mg sublingual 0.4 mg sublingual UD angina 06/29/24 Unknown History tablet oxycodone-acetaminophen 5 mg-325 1 tab PO TID PRN PRN pain 06/29/24 Unknown History mg tablet potassium citrate 15 mEq (1,620 15 meq PO DAILY kidney stone 06/29/24 Unknown History mg) tablet,extended release prevention Allergy/AdvReac Type Severity Reaction Status Date / Time Lrqmbmy-BCJ-ClT Reductase Allergy Pain in Verified 06/28/24 22:18 Inhibitor (Sbstpvq-Hcs-Pcn joints Reductase Inhibitor) Family History (Updated 06/29/24 @ 02:[address] Gloria Andrade MD) Mother Heart disease Hypertension CAD (coronary artery disease) Myocardial infarction Father Aneurysm Surgical History History of cardiac catheterization Hx of colonoscopy History of incision and drainage Hx of lithotripsy Hx of colectomy Hx of laminectomy Hx of laminectomy History of appendectomy History of tonsillectomy and adenoidectomy S/P peripheral artery angioplasty with stent placement Hx of CABG Social History (Updated 06/29/24 @ 02:[address] Gloria Andrade MD) household members: spouse Smoking Status: Former smoker how long ago did patient quit smoking: Quit ~ 7 yrs prior, smoked 2 ppd since 19 until quit. alcohol intake: never substance use type: does not use EXAM Physical Exam Const Vital Signs: 06/28/24 22:15 06/28/24 22:23 06/28/24 23:16 Temperature 96.8 F L Temperature Source Temporal Pulse Rate 107 H Respiratory Rate 23 H Respiratory Effort Short of Breath Respiratory Pattern Tachypnea Blood Pressure 125/82 H Blood Pressure Mean 96 Pulse Ox 93 Oxygen Delivery Method Nasal Cannula Nasal Cannula Nasal Cannula Oxygen Flow Rate (L/min) 3 4 4 Fraction of Inspired Oxygen (FIO2) 06/28/24 23:28 06/29/24 00:05 06/29/24 00:38 Temperature Temperature Source Pulse Rate 89 105 H 113 H Respiratory Rate 18 24 H 25 H Respiratory Effort Respiratory Pattern Blood Pressure 130/88 H 134/85 H Blood Pressure Mean 102 101 Pulse Ox 95 91 Oxygen Delivery Method Nasal Cannula Nasal Cannula Oxygen Flow Rate (L/min) 4 4 Fraction of Inspired Oxygen (FIO2) 06/29/24 00:57 06/29/24 01:34 06/29/24 01:42 Temperature Temperature Source Pulse Rate 112 H 116 H Respiratory Rate 20 H 18 Respiratory Effort Short of Breath Respiratory Pattern Tachypnea Blood Pressure 123/70 H Blood Pressure Mean 87 Pulse Ox 93 92 Oxygen Delivery Method Bi-pap Oxygen Flow Rate (L/min) Fraction of Inspired Oxygen (FIO2) 30 MDM MDM MDM Narrative Medical decision making narrative: 73-year-old male with extensive cardiac history presents for evaluation of shortness of breath. Previous tobacco abuser but denies COPD. On presentation he is tachycardic, mildly tachypneic, requiring 4 L nasal cannula. His lungs are diminished and coarse bilaterally. Differential diagnosis includes but is not limited to viral illness, pneumonia, ACS, CHF. On chart review, his last echocardiogram was 03/2019 at that time his EF was 65%. DuoNebs ordered. Solu- Medrol not given at this time as I suspect more CHF exacerbation than COPD. Respiratory/cardiac workup ordered. EKG reviewed see below. CBC with leukocytosis of 14.7. No anemia. Coagulation panel unremarkable. BMP with renal insufficiency of 2.07. Patient's baseline is anywhere from 1.5-1.7. Hyperglycemia with known diabetes. Lactic acidosis elevated at 2.4. Troponin elevated at 6342 consistent with NSTEMI. Patient currently denying chest pain. Repeat EKG without ST elevation. Heparin started. Cardiology contacted and patient was discussed. Agree with heparin. Will see the patient in consult tomorrow. BNP elevated at 654.8. Chest x-ray shows pulmonary edema. Cannot fully rule out pneumonia. Lasix ordered. Given patient's leukocytosis as well as lactic acid doses, Rocephin and azithromycin ordered to cover for community- acquired pneumonia. On reexamination, patient is still short of breath. He is dyspneic with worsening tachypnea therefore BiPAP placed. VBG ordered without hypercapnia. Patient will warrant admission to the hospital. I spoke to the hospitalist, Dr. Andrade. She accepted admission to the ICU. Patient was updated of all results and the plan. He confirmed understanding. EKG: Interpreted by me/EM physician: EKG shows sinus tachycardia with PVCs. Heart rate 119. Nonspecific ST changes. No ST elevation Diagnostic: Interpreted by me/EM physician: Chest x-ray with pulmonary edema and cardiomegaly, cannot fully rule out pneumonia given bibasilar atelectasis 30 minutes of critical care time utilized in managing the patient. This is due to high probability of and deterioration of the patient based on the patient's condition and excludes any separately billable procedures. Impression: 1. NSTEMI 2. Acute hypoxic respiratory failure secondary requiring BiPAP 3. CHF exacerbation 4. Possible pneumonia 5. KWABENA versus worsening CKD 6. Hyperglycemia and known type II diabetic 7. Lactic acidosis Lab Data Labs: Laboratory Results - last 24 hr 06/28/24 06/28/24 06/29/24 22:25 23:37 00:40 WBC 14.7 H RBC 4.91 Hgb 14.4 Hct 45.8 MCV 93.3 MCH 29.3 MCHC 31.4 L RDW Std Deviation 45.4 H RDW Coeff of Jarrod 13.2 Plt Count 322 MPV 11.1 Immature Gran % (Auto) 0.600 Neut % (Auto) 84.2 H Lymph % (Auto) 4.5 L Barry % (Auto) 10.6 H Eos % (Auto) 0.0 Baso % (Auto) 0.1 Absolute Neuts (auto) 12.4 H Absolute Lymphs (auto) 0.67 L Nucleated RBC % 0 Differential Comment SCANNED Diff Path Review May foll PT 12.6 INR 0.9 APTT 25.5 Sodium 138 Potassium 4.8 Chloride 109 H Carbon Dioxide 22.0 Anion Gap 8 BUN 47 H Creatinine 2.07 H Estim Creat Clear Calc 45.70 Est GFR (MDRD) Af Amer 41 L Est GFR (MDRD) Non-Af 34 L BUN/Creatinine Ratio 22.7 H Glucose 246 H Lactic Acid 2.4 H* Calcium 9.9 Magnesium 1.6 Troponin I High Sens 6342 H* 6046 H* B-Natriuretic Peptide 654.8 H ABG Data ABG results: ABG 06/29/24 01:58 Specimen Type ALEKSEY Sample Site Not entered O2 % 30.0 VBG pH 7.33 VBG pO2 40 VBG HCO3 22 VBG Total CO2 23 VBG O2 Sat (Calc) 72 H VBG Base Excess -4 L POC Mix VBG pCO2 Pt Tmp 40.6 L O2 Delivery Device BiPAP Clinical Comments BIPAP. 20. 16. Radiography Diagnostic Testing: Clinical Impression(s) from Imaging Studies Chest X-Ray 06/28/24 23:55 IMPRESSION: Diffuse interstitial process, suggesting pulmonary edema given venous congestion and cardiomegaly. Infectious etiology is not excluded. Electronically Signed: Mohinder Mckenzie MD at 1:35 EDT , Discharge Plan Disposition Disposition: Acute Care Hospital [facility] Discharge Date/Time: 06/29/24 02:56
[2024-06-28 23:28] VITALS: PULSE 89; RESP 18
--- NOTE | 2024-06-28 23:55 | RAD_ITS ---
INDICATION: Shortness of breath COMPARISON: 04/02/2019 chest radiograph. Findings: Frontal and lateral views of the chest. Low lung volumes. LUNG PARENCHYMA: Diffuse bilateral interstitial thickening. Manuel B-lines present. PLEURA: No pleural effusion. No pneumothorax. HEART/[place]: Cardiomegaly. Prominence of the central vasculature suggesting venous congestion. BONES: Median sternotomy wires. RAD/Chest PA and Lateral IMPRESSION: Diffuse interstitial process, suggesting pulmonary edema given venous congestion and cardiomegaly. Infectious etiology is not excluded. Electronically Signed: Mohinder Mckenzie MD at 1:35 EDT ,
[2024-06-29] VITALS (36 sets, daily range): BP systolic 90–157; BP diastolic 61–95; PULSE 64–123; RESP 12–27; TEMP 36–36.7; O2SAT 91–98; BMI 44.0; BMI 43.9
[2024-06-29] MEDS: Ipratropium/Albuterol Sulfate 3 ML AMPUL.NEB 9 ML INHALATION
[2024-06-29 00:01] LABS: Absolute Lymphocyte Count 0.67 X10^3/uL (0.83-4.51); Absolute Neutrophil Count 12.4 X10^3/uL (2.0-7.7); Basophil# 0.02 X10^3/uL; Basophil% 0.1 % (0-1); Hematocrit 45.8 % (40-54); Hemoglobin 14.4 g/dL (13.0-16.5); Lymphocyte # 0.67 X10^3/ul (0.83-4.51); Lymphocyte % 4.5 % (19-41); Mean Corp Hgb Conc 31.4 g/dL (32-36); Mean Corpuscular Hgb 29.3 pg (27.0-32.0); Mean Corpuscular Volume 93.3 fL (80-94); Mean Platelet Vol. 11.1 fl (6.2-12.0); Monocyte# 1.56 X10^3/uL; Monocyte% 10.6 % (0-10); NRBC Flagged by Analyzer 0 % (0-5); Neutrophil % 84.2 % (47-70); POSITIVE DIFFERENTIAL YES; Platelet Count 322 K/mm3 (150-450); RBC Distribution Width CV 13.2 % (11.6-14.6); RBC Distribution Width SD 45.4 fl (35.1-43.9); Red Blood Count 4.91 M/mm3 (4.6-6.2); White Blood Count 14.7 K/mm3 (4.4-11.0)
[2024-06-29] MEDS: 0.9% Normal Saline (500mL Bag) 500 ML 999 ML IV (00:03)
[2024-06-29 00:13] LABS: Differential Indicated SCAN CRITERIA MET
[2024-06-29 00:24] LABS: BNP,B-Type NATRIURETIC PEPTIDE 654.8 pg/mL (0-100)
[2024-06-29 00:37] LABS: Lactic Acid 2.4 mmol/L (0.4-1.9)
[2024-06-29 00:37] LABS: Anion Gap 8 (5-15); BUN 47 mg/dL (7-18); BUN/Creat Ratio 22.7 RATIO (10-20); Calcium,Total 9.9 mg/dL (8.5-10.1); Chloride 109 mmol/L (98-107); Creatinine, Serum 2.07 mg/dL (0.70-1.30); EST Glomerular Filtration Rate 34 mL/min (>60); Est Glom Filt Rate - Afr Amer 41 mL/min (>60); Glucose 246 mg/dL (74-106); Potassium 4.8 mmol/L (3.5-5.1); Sodium Level 138 mmol/L (136-145); Troponin-I HS (w/2H Reflex) 6342 pg/mL (3.0-78.0)
[2024-06-29 00:41] LABS: Differential Comment SCANNED
[2024-06-29 00:51] LABS: Reflex Troponin-HS? (from REC) Y
[2024-06-29 01:12] LABS: Troponin-I HS 6046 pg/mL (3.0-78.0)
[2024-06-29 01:37] LABS: International Normalized Ratio 0.9; Partial Thromboplast Time 25.5 Seconds (24.1-36.2); Prothrombin Time (Protime)PT. 12.6 SECONDS (11.7-14.9)
[2024-06-29] MEDS: Heparin Injection (Vial) 5,000 UNIT/ML VIAL 4000 UNIT IV (01:49)
[2024-06-29] MEDS: HEPARIN/D5w 25,000 UNITS 25,000 UNITS/250 ML IV.SOLN. 10 UNITS CONT INF ×2 (01:49→03:37)
--- NOTE | 2024-06-29 01:49 | HP.PCM.HOS_ITS ---
HPI - General General Date of Admission: 06/29/24 Date of Service: 06/29/24 Chief Complaint: Dyspnea. HPI Narrative The patient is a 73 y/o M w/ PMHx: CKD stage III unclear subtype based on previous remote GFR trending, BPH, CAD s/p CABG 2011 CC, Hx AAA s/p repair 2016, PAD s/p peripheral PCI LLE, HTN, HLD, Diabetes mellitus type II, Former tobacco use, Morbid obesity, SACHA, Hx TIA, Chronic back pain s/p remote 1985 back surgery and follow-up laminectomy who presents to the [facility] ED on 06/28/24 initially secondary to history of worsening dyspnea reporting that he been seen the Monday prior and received a IR directed right shoulder triamcinolone/lidocaine injection per orthopedic surgery Dr. Escobar direction; however, he reported that later in the evening he had's onset of the dyspnea which is progressively worsened with cough but not productive with no recent fevers or chills or URI type symptoms prompting eventual ED evaluation. Upon ED arrival patient noted to be tachypneic with lung sounds coarse and mildly tachycardic requiring 4 L nasal cannula to maintain appropriate saturation. Workup in the ED included T96.8, heart rate 107, BP 125/82, respiratory rate 23, initially 93% on 3 L nasal cannula eventually increased to 4 L noted to be 95%, CBC with WBC 14.7, hemoglobin 14.4, platelet 322 with left shift and lymphopenia, BMP with chloride 109, BUN/ creatinine 47/2.07, GFR 34, glucose 246, lactic acid mildly elevated 2.4, troponin 6342 with repeat delta troponin 6046, BNP 654.8, chest x-ray with diffuse interstitial process with suspected pulmonary edema and evidence of cardiomegaly, rapid SARS COVID/influenza/RSV PCR negative, EKG with sinus tachycardia with PVCs with nonspecific ST changes with no acute evidence of ischemia. In the ED patient administered heparin bolus with drip, DuoNeb therapy and initially 500 cc normal saline bolus in addition to azithromycin 5 mg IV x 1 and Rocephin 1 g IV x 1. Patient placed on BiPAP. ABG, coags requested per ED and pending upon evaluation. ED discussed case with Dr. Pack who will follow. Discussed case with ED physician and requested Lasix IV be administered in the ED. [facility], [facility] Medical History Loss of hearing Wears glasses Diabetes Arthritis High cholesterol Back pain TIA (transient ischemic attack) Syncope Dietary restriction Former smoker CPAP (continuous positive airway pressure) dependence History of pain when walking History of edema Cardiology follow-up encounter Hx of aortic aneurysm HTN (hypertension) PAD (peripheral artery disease) CAD (coronary artery disease) Home Medications ?Medication ?Instructions ?Recorded ?Last Taken ?Type cholecalciferol (vitamin D3) 50 4,000 unit PO DAILY sup[pliment 03/14/18 04/06/22 History mcg (2,000 unit) capsule (Vitamin D3) cilostazol 100 mg tablet 100 mg PO BID 03/14/18 04/06/22 History clopidogrel 75 mg tablet 75 mg PO DAILY heart 03/14/18 04/06/22 History ezetimibe 10 mg tablet 10 mg PO DAILY cholesterol 03/14/18 04/06/22 History lisinopril 10 mg tablet 40 mg PO BID blood pressure 03/14/18 04/06/22 History metoprolol tartrate 50 mg tablet 25 mg PO DAILY heart 03/14/18 04/06/22 History tamsulosin 0.4 mg capsule (Flomax) 0.4 mg PO DAILY urine flow 11/06/18 04/06/22 History amlodipine 10 mg tablet 10 mg PO DAILY 11/22/20 04/06/22 History fenofibrate 160 mg tablet 160 mg PO DAILY high cholesterol 03/23/22 04/06/22 History isosorbide mononitrate 60 mg 60 mg PO DAILY 03/23/22 04/06/22 History tablet,extended release 24 hr ranolazine 500 mg tablet,extended 500 mg PO BID 03/23/22 04/06/22 History release,12 hr aspirin 81 mg tablet,delayed 81 mg PO DAILY 06/29/24 Unknown History release (Adult Low Dose Aspirin) latanoprost 0.005 % eye drops 1 drp ophthalmic (eye) DAILY 06/29/24 Unknown History metformin 500 mg tablet 500 mg PO BID 06/29/24 Unknown History metoprolol tartrate 25 mg tablet 25 mg PO BID 06/29/24 Unknown History nitroglycerin 0.4 mg sublingual 0.4 mg sublingual UD angina 06/29/24 Unknown History tablet oxycodone-acetaminophen 5 mg-325 1 tab PO TID PRN PRN pain 06/29/24 Unknown History mg tablet potassium citrate 15 mEq (1,620 15 meq PO DAILY kidney stone 06/29/24 Unknown History mg) tablet,extended release prevention Allergy/AdvReac Type Severity Reaction Status Date / Time Qawvddc-SLR-FhT Reductase Allergy Pain in Verified 06/28/24 22:18 Inhibitor (Jtmlzth-Uei-Sot joints Reductase Inhibitor) Family History (Updated 06/29/24 @ 02:[address] Gloria Andrade MD) Mother Heart disease Hypertension CAD (coronary artery disease) Myocardial infarction Father Aneurysm Surgical History History of cardiac catheterization Hx of colonoscopy History of incision and drainage Hx of lithotripsy Hx of colectomy Hx of laminectomy Hx of laminectomy History of appendectomy History of tonsillectomy and adenoidectomy S/P peripheral artery angioplasty with stent placement Hx of CABG Social History (Updated 06/29/24 @ 02:[address] Gloria Andrade MD) household members: spouse Smoking Status: Former smoker how long ago did patient quit smoking: Quit ~ 7 yrs prior, smoked 2 ppd since 19 until quit. alcohol intake: never substance use type: does not use ROS ROS Narrative Admission Review of Systems: CONSTITUTIONAL: No weight loss, fever, chills, + weakness or fatigue. HEENT: Eyes: No visual loss, blurred vision, double vision or yellow sclerae. Ears, Nose, Throat: No hearing loss, sneezing, congestion, runny nose or sore throat. SKIN: No rash or itching, lesions, wounds. CARDIOVASCULAR: + Edema, orthopnea. No chest pain, chest pressure or chest discomfort, palpitations, syncopal events. RESPIRATORY: + Dyspnea, worse with exertion, nonproductive cough. No wheezing, hemoptysis. GASTROINTESTINAL: No anorexia, nausea, vomiting or diarrhea, abdominal pain, melena, BRBPR. GENITOURINARY: No dysuria, frequency, urgency or retention. NEUROLOGICAL: No headache, dizziness, syncope, paralysis, ataxia, numbness or tingling in the extremities, focal weakness, change in bowel or bladder control, seizure. MUSCULOSKELETAL: + muscle, back pain, joint pain or stiffness. HEMATOLOGIC: No anemia. + Easy bleeding/bruising. LYMPHATICS: No enlarged nodes. No history of splenectomy. PSYCHIATRIC: No history of depression or anxiety. ENDOCRINOLOGIC: No reports of sweating, cold or heat intolerance. No polyuria or polydipsia. ALLERGIES: No history of asthma, hives, eczema or rhinitis. Vital Signs Vital Signs Vital Signs: 06/28/24 22:15 06/28/24 22:23 06/28/24 23:16 Temperature 96.8 F L Temperature Source Temporal Pulse Rate 107 H Respiratory Rate 23 H Respiratory Effort Short of Breath Respiratory Pattern Tachypnea Blood Pressure 125/82 H Blood Pressure Mean 96 Pulse Ox 93 Oxygen Delivery Method Nasal Cannula Nasal Cannula Nasal Cannula Oxygen Flow Rate (L/min) 3 4 4 Fraction of Inspired Oxygen (FIO2) 06/28/24 23:28 06/29/24 00:05 06/29/24 00:38 Temperature Temperature Source Pulse Rate 89 105 H 113 H Respiratory Rate 18 24 H 25 H Respiratory Effort Respiratory Pattern Blood Pressure 130/88 H 134/85 H Blood Pressure Mean 102 101 Pulse Ox 95 91 Oxygen Delivery Method Nasal Cannula Nasal Cannula Oxygen Flow Rate (L/min) 4 4 Fraction of Inspired Oxygen (FIO2) 06/29/24 00:57 06/29/24 01:34 Temperature Temperature Source Pulse Rate 112 H Respiratory Rate 20 H Respiratory Effort Short of Breath Respiratory Pattern Tachypnea Blood Pressure Blood Pressure Mean Pulse Ox 93 Oxygen Delivery Method Oxygen Flow Rate (L/min) Fraction of Inspired Oxygen (FIO2) 30 Weight Weight: 310 lb 10.101 oz Body Mass Index (BMI) 44.5 Physical Exam Narrative Physical Examination: General: Awake, alert, oriented x 3 and cooperative, seated upright in the ED bed, BiPAP in place, still mildly increased respiratory rate but no evidence of current distress, fatigued appearing, no current chest pain. Skin: Normal color, normal turgor, no icterus, no cyanosis except occasional stage ecchymoses, abrasion HEENT: AT/NC, EOMI, PERRLA, mildly dry MM, BiPAP in place, no carotid bruits however difficult given referred sound from BiPAP, difficult to discern JVD given very thickened neck. Lungs: Severely diminished, distant breath sounds, greater bases, mild rales at the bases, BiPAP in place, still mildly increased respiratory rate but no overt distress currently. Heart: Mildly tachycardic with regular rhythm; no gallop, rub audible. Abdomen: Soft, morbidly obese, NTTP, distant BS, difficult to discern distention and HSM given habitus. Extremities: No cyanosis, no clubbing, mild bilateral pedal to mid johnson 1+ pitting edema. Neurological: Patient awake, alert, oriented as no, cognitive function intact; pupils equally reactive to light and accommodation, cranial nerves grossly normal, moving all 4 extremities, no focal deficits, strength severely globally decreased secondary to acute presentation Psychiatric: Affect appears flat, fatigued, no acute evidence of depressive or anxiety feelings. Results Lab / Micro Data 06/28/24 22:25 06/28/24 22:25 Labs: Laboratory Results - last 24 hr 06/28/24 22:25: WBC 14.7 H, RBC 4.91, Hgb 14.4, Hct 45.8, MCV 93.3, MCH 29.3, M CHC 31.4 L, RDW Std Deviation 45.4 H, RDW Coeff of Jarrod 13.2, Plt Count 322, MPV 11.1, Immature Gran % (Auto) 0.600, Neut % (Auto) 84.2 H, Lymph % (Auto) 4.5 L, Perkins % (Auto) 10.6 H, Eos % (Auto) 0.0, Baso % (Auto) 0.1, Absolute Neuts (auto) 12.4 H, Absolute Lymphs (auto) 0.67 L, Nucleated RBC % 0, Differential Comment SCANNED, Diff Path Review January, PT 12.6, INR 0.9, APTT 25.5, Sodium 138, Potassium 4.8, Chloride 109 H, Carbon Dioxide 22.0, Anion Gap 8, BUN 47 H, C reatinine 2.07 H, Estim Creat Clear Calc 45.70, Est GFR (MDRD) Af Amer 41 L, Est GFR (MDRD) Non-Af 34 L, BUN/Creatinine Ratio 22.7 H, Glucose 246 H, Calcium 9.9, Troponin I High Sens 6342 H*, B-Natriuretic Peptide 654.8 H 06/28/24 23:37: Lactic Acid 2.4 H* 06/29/24 00:40: Troponin I High Sens 6046 H* Micro: Microbiology 06/28/24 23:35 Mucosa - Nose SARS-CoV-2, Influenza & RSV (PCR) - Final Imaging Radiology Impression Chest X-Ray 06/28/24 23:55 IMPRESSION: Diffuse interstitial process, suggesting pulmonary edema given venous congestion and cardiomegaly. Infectious etiology is not excluded. Electronically Signed: Mohinder Mckenzie MD at 1:35 EDT , Assessment & Plan Assessment/Plan (1) NSTEMI, initial episode of care: (2) Acute heart failure: PLAN: Plan The patient is a 73 y/o M w/ PMHx: CKD stage III unclear subtype based on previous remote GFR trending, BPH, CAD s/p CABG 2011 CC, Hx AAA s/p repair 2016, PAD s/p peripheral PCI LLE, HTN, HLD, Diabetes mellitus type II, Former tobacco use, Morbid obesity, SACHA, Hx TIA, Chronic back pain s/p remote 1985 back surgery and follow-up laminectomy who presents to the [facility] ED on 06/28/24 initially secondary to history of worsening dyspnea reporting that he been seen the Monday prior and received a IR directed right shoulder triamcinolone/lidocaine injection per orthopedic surgery Dr. Escobar direction; however, he reported that later in the evening he had's onset of the dyspnea which is progressively worsened with cough but not productive with no recent fevers or chills or URI type symptoms prompting eventual ED evaluation. #1. Acute Hypoxia (with increased work of breathing, mild accessory muscle usage, tachypnea) secondary to NSTEMI type I presumed with suspected resulting Acute HF Exacerbation, unclear type potentially due to related Cardiomyopathy with the event with lactic acidosis suspected primarily secondary to hypoxemia, lower suspicion for infectious etiology, suspect leukocytosis secondary to recent steroid injection: CXR obtained in the ED w/ significant overloaded appearance. Will admit to the ICU, continue BiPAP placement, will pulse dose with IV Lasix, will maintain on cardiac telemetry, obtain cardiac enzyme series, obtain serial EKGs, monitor I/Os, maintain on intake restriction, continue medical therapy w/ cilostazol, asa/Plavix, BB, ACEI, noted statin allergy. Will obtain TSH and magnesium level. Most recent ECHO noted 04/02/2019 with LV systolic function normal, EF 65%, trivial TVI, trivial PVI, RVSP 34 mmHg, diastolic function indeterminate at that time thus will request repeat. Suspect leukocytosis is likely secondary to recent cortisone administration however to be cautious we will obtain procalcitonin as well as repeat chest x-ray in AM following diuresis to assure no infiltrates with low threshold to initiate antibiotic therapy if any onset fever. Will continue on heparin drip. Cardiology consulted and pending evaluation for consideration cardiac catheterization. #2 Elevated Cr/Acute Renal Insufficiency on Chronic Kidney Disease Stage III, unclear subtype based on previous GFR trend: Admission BUN/Cr 47/2.07, baseline renal function 1.4-1.7 however this is remote with last noted 11/23/20 creatinine 1.70, repeat BMP in AM as unclear if disease as progressed or insufficiency/elevated creatinine. Given need for diuresis we will have to continue to closely monitor. #3 CAD: Status post CABG 2011 at [facility], continue patient cilostazol, asa/Plavix, metoprolol, lisinopril, Ranexa home regimen, not on statin therapy secondary to side effects but on fenofibrate and ezetimibe. #4 PAD: Status post peripheral PCI left lower extremity, continue cilostazol, asa/Plavix, hypertensive regimen as noted, not on statin therapy secondary to side effects but on fenofibrate and ezetimibe. #5. Diabetes mellitus type II: Hold oral home regimen, ADA diet once appropriate w/ currently NPO pending Cardiology evaluation, accu checks w/ ISS, last hemoglobin A1c noted in the system 11/23/20 5.7%, repeat HgBA1c requested. #6. Hypertension: Continue home regimen including metoprolol, lisinopril, IV lasix as noted, holding other regimen given BP to accommodate diuresis, PRN hydralazine. #7. Hyperlipidemia: We will continue patient home fenofibrate and ezetimibe regimen, not on statin therapy with arthralgia side effect noted. FLP in AM. #8. History TIA: We will continue patient home cilostazol, Plavix, hypertensive regimen as noted, diabetic regimen with adjustments as noted, not on statin therapy secondary to intolerance. #9. Chronic back pain: Previous history of remote back surgery 1985 with follow-up laminectomy, encourage positional changes, offloading. #10. Morbid Obesity: Weight loss and lifestyle changes encouraged. #11. BPH: We will continue patient home Flomax regimen. #12. History AAA: Status post repair 2017, encourage continued outpatient follow-up with vascular surgery as previously arranged. #13. Former tobacco use: Encourage continued tobacco cessation. #14. SACHA: CPAP nightly at home, currently on BIPAP as noted. #15. DVT prophylaxis: Heparin drip. #16. CODE status: Patient HCPOA is his who is present, living will is not in place. Discussed CODE status at length including difference between FULL code, DNR-CCA and DNR-CC status. Following discussions about the differences in these status, requested DNR-CCA, no intubation. Examples of scenarios were given and patient does confirm absolutely that he has preference of DNR CCA, no intubation status. Advanced Care Planning Face to Face Time: 16 minutes. Charges/Coding Visit Charges Inpatient E&M: 41630 Init Hosp L3 Procedures Hospitalists Procedures: 04815 Advncd Care Plan 30 Min
[2024-06-29 02:02] LABS: Blood Gas Specimen Type VEN; Comment BIPAP. 20. 16.; O2 Delivery Device BiPAP; SITE Not entered; VBG BASE EXCESS -4 mmol/L (-1.0-3.5); VBG Bicarbonate 22 mmol/L (22-26); VBG PO2 40 mmHg (25-40); VBG SO2 72 % (50-70); VBG TCO2 23 mmol/L (23-33); VBG pCO2 40.6 mmHg (41-51); VBG pH 7.33 (7.32-7.42)
[2024-06-29] MEDS: Furosemide 40 MG/4 ML Vial IV ×3 (02:13→17:04)
[2024-06-29] MEDS: Ceftriaxone 1 GM/50 ML BAG IV (02:13)
--- NOTE | 2024-06-29 02:34 | ED.RN ---
Report called to Abigail CARGO HANDLER, questions/concerns answered
--- NOTE | 2024-06-29 02:58 | ECHOCS_ITS ---
Reason For Study: chf Procedure This was a 2D Doppler, Color Flow transthoracic echocardiogram. The study was technically difficult. The study was technically limited. Limited views were obtained. Due to body habitus. Contrast injection was performed. Exam performed portable in ICU/CCU. Left Ventricle Normal LV size. The estimated ejection fraction is 40-45 %. [place] : Hypokinetic. Right Ventricle Normal RV size. Normal systolic function. Atria The left atrium is not well visualized. The right atrium is not well visualized. No doppler evidence for ASD. Mitral Valve There is no mitral valve stenosis. No mitral valve insufficiency. Tricuspid Valve There is no tricuspid stenosis. No tricuspid valve insufficiency. Unable to estimate RV systolic pressure due to inadequate jet, pulmonary artery pressure probably normal. Aortic Valve Trisinus/trileaflet aortic valve. There is no aortic stenosis. No aortic valve insufficiency. Pulmonic Valve There is no pulmonic valvular stenosis. No pulmonic valve insufficiency. Great Vessels Normal aortic root. Pericardium/Pleural No pericardial effusion. Medication Diluted definity 8.0ml given slow IV push to enhance endocardial definition. MMode/2D Measurements & Calculations LVIDd: 5.2 cm IVSd: 1.4 cm LAV(MOD-bp): 91.3 ml LVIDs: 4.2 cm LVPWd: 0.94 cm FS: 17.8 % LAV(MOD-bp) Indexed: 36.3 ml/m2 LAV(MOD-sp2): 87.2 ml LAV(MOD-sp4): 88.9 ml LA A4 area: 27.6 cm2 Time Measurements MV dec time: 0.15 sec Doppler Measurements & Calculations MV E max aashish: 84.8 cm/sec Lat Peak E' Aashish: 11.2 cm/sec Med Peak E' Aashish: 5.3 cm/sec MV A max aashish: 103.9 cm/sec E/E' lat: 7.6 E/E' med: 15.9 MV E/A: 0.82 MV V2 max: 112.2 cm/sec MV P1/2t max aashish: 85.4 cm/sec Ao V2 max: 109.8 cm/sec MV max P.0 mmHg MV P1/2t: 42.6 msec Ao max P.8 mmHg MV V2 mean: 62.4 cm/sec Ao V2 mean: 71.4 cm/sec MV mean P.8 mmHg MV dec slope: 586.9 cm/sec2 Ao mean P.4 mmHg MV V2 VTI: 22.5 cm MVA(P1/2t): 5.2 cm2 Ao V2 VTI: 16.6 cm AV (velocity ratio): 0.98 LV V1 max: 100.6 cm/sec PA V2 max: 102.5 cm/sec LV V1 max P.1 mmHg PA V2 mean: 77.8 cm/sec LV V1 mean P.2 mmHg LV V1 mean: 70.9 cm/sec LV V1 VTI: 16.2 cm ECHO/Echo Complete W/ Contrast Interpretation Summary Technically difficult study The estimated ejection fraction is 40-45 %. [place] : Hypokinetic. Ordering Physician: Gloria Andrade Referring Physician: Brad Owens Performed By: Berta Slade RDCS, RVT
--- NOTE | 2024-06-29 02:58 | EKG12_ITS ---
Test Reason : ADMIT Blood Pressure : / mmHG Vent. Rate : 118 BPM Atrial Rate : 118 BPM P-R Int : 138 ms QRS Dur : 090 ms QT Int : 314 ms P-R-T Axes : 027 100 185 degrees QTc Int : 440 ms Sinus tachycardia with frequent Premature ventricular complexes Rightward axis Low voltage QRS Nonspecific ST and T wave abnormality Abnormal ECG When compared with ECG of 29-JUN-2024 00:43, MANUAL COMPARISON REQUIRED, DATA IS UNCONFIRMED Confirmed by NUSRAT COON, ROSS ([id number]), scientific publications editor MIGDALIA GEORGE ([id number]) on 07/02/2024 9:23:39 AM Referred By: LUISA Confirmed By:ROSS SILVERIO MD
[2024-06-29 03:03] LABS: Magnesium 1.6 mg/dL (1.6-2.6)
--- NOTE | 2024-06-29 03:30 | CPS ---
3L BLEED WITH HIS HOME BIPAP
[2024-06-29 03:52] LABS: Reflex Lactate? Y
[2024-06-29 04:25] LABS: Absolute Lymphocyte Count 0.11 X10^3/uL (0.83-4.51); Absolute Neutrophil Count 9.2 X10^3/uL (2.0-7.7); Basophil# 0.01 X10^3/uL; Basophil% 0.1 % (0-1); Hematocrit 42.2 % (40-54); Hemoglobin 13.4 g/dL (13.0-16.5); Lymphocyte # 0.11 X10^3/ul (0.83-4.51); Lymphocyte % 1.1 % (19-41); Mean Corp Hgb Conc 31.8 g/dL (32-36); Mean Corpuscular Hgb 29.5 pg (27.0-32.0); Mean Corpuscular Volume 92.7 fL (80-94); Mean Platelet Vol. 10.6 fl (6.2-12.0); Monocyte# 0.25 X10^3/uL; Monocyte% 2.6 % (0-10); NRBC Flagged by Analyzer 0 % (0-5); Neutrophil # 9.19 X10^3/uL (2.7-7.7); Neutrophil % 95.6 % (47-70); POSITIVE DIFFERENTIAL YES; Platelet Count 290 K/mm3 (150-450); RBC Distribution Width CV 13.2 % (11.6-14.6); RBC Distribution Width SD 44.8 fl (35.1-43.9); Red Blood Count 4.55 M/mm3 (4.6-6.2); White Blood Count 9.6 K/mm3 (4.4-11.0)
[2024-06-29 04:53] LABS: Troponin-I HS 12985 pg/mL (3.0-78.0)
[2024-06-29 04:54] LABS: Lactic Acid 2.8 mmol/L (0.4-1.9)
[2024-06-29 05:13] LABS: AST(SGOT) 61 U/L (15-37); Alanine Aminotransfer ALT/SGPT 34 U/L (16-61); Albumin, Serum 3.4 g/dL (3.2-5.0); Alkaline Phosphatase 49 U/L (45-117); Anion Gap 8 (5-15); BUN 46 mg/dL (7-18); Calcium,Total 9.6 mg/dL (8.5-10.1); Chloride 108 mmol/L (98-107); Creatinine, Serum 2.09 mg/dL (0.70-1.30); EST Glomerular Filtration Rate 33 mL/min (>60); Est Glom Filt Rate - Afr Amer 40 mL/min (>60); Estimated Creatinine Clearance 44.97 ml/min; Globulin 3.4 g/dL (2.2-4.2); Glucose 281 mg/dL (74-106); Potassium 4.8 mmol/L (3.5-5.1); Protein, Total 6.8 g/dL (6.4-8.2); Sodium Level 138 mmol/L (136-145); Thyroid Stim Hormone (TSH) 0.663 uIU/mL (0.358-3.740)
--- NOTE | 2024-06-29 07:19 | PCM.PN.HOSP ---
Reason for Visit Reason for Visit: Diagnoses Non-ST elevation (NSTEMI) myocardial infarction (06/29/24) Heart failure, unspecified (06/29/24) Objective Data Objective Data Vital Signs: Vital Signs Temp Pulse Resp BP Pulse Ox O2 Del Method O2 Flow Rate 98.1 F 91 19 H 148/89 H 94 CPAP 3 06/29/24 04:25 06/29/24 07:00 06/29/24 07:00 06/29/24 07:00 06/29/24 07:00 06/29/24 07:00 06/29/24 03:29 FiO2 30 06/29/24 01:34 Oxygen Flow Rate (L/min) 3 Oxygen Delivery Method CPAP Weight: 307 lb 1.663 oz Body Mass Index (BMI) 43.9 Intake & Output: Intake and Output for Last 24 Hours 06/27/24 06/28/24 06/29/24 23:59 23:59 23:59 Intake Total 567.67 / 567.67 Output Total 930 / 930 Balance -362.33 / -362.33 Lab / Micro Data 06/29/24 04:08 06/29/24 04:08 Labs: Laboratory Results - last 24 hr 06/28/24 22:25: WBC 14.7 H, RBC 4.91, Hgb 14.4, Hct 45.8, MCV 93.3, MCH 29.3, MCHC 31.4 L, RDW Std Deviation 45.4 H, RDW Coeff of Jarrod 13.2, Plt Count 322, MPV 11.1, Immature Gran % (Auto) 0.600, Neut % (Auto) 84.2 H, Lymph % (Auto) 4.5 L, [place] % (Auto) 10.6 H, Eos % (Auto) 0.0, Baso % (Auto) 0.1, Absolute Neuts (auto) 12.4 H, Absolute Lymphs (auto) 0.67 L, Nucleated RBC % 0, Differential Comment SCANNED, Diff Path Review January, PT 12.6, INR 0.9, APTT 25.5, Sodium 138, Potassium 4.8, Chloride 109 H, Carbon Dioxide 22.0, Anion Gap 8, BUN 47 H, Creatinine 2.07 H, Estim Creat Clear Calc 45.70, Est GFR (MDRD) Af Amer 41 L, Est GFR (MDRD) Non-Af 34 L, BUN/Creatinine Ratio 22.7 H, Glucose 246 H, Calcium 9.9, Troponin I High Sens 6342 H*, B-Natriuretic Peptide 654.8 H 06/28/24 23:37: Lactic Acid 2.4 H* 06/29/24 00:40: Magnesium 1.6, Troponin I High Sens 6046 H* 06/29/24 04:08: WBC 9.6, RBC 4.55 L, Hgb 13.4, Hct 42.2, MCV 92.7, MCH 29.5, MCHC 31.8 L, RDW Std Deviation 44.8 H, RDW Coeff of Jarrod 13.2, Plt Count 290, MPV 10.6, Immature Gran % (Auto) 0.600, Neut % (Auto) 95.6 H, Lymph % (Auto) 1.1 L, [place] % (Auto) 2.6, Eos % (Auto) 0.0, Baso % (Auto) 0.1, Absolute Neuts (auto) 9.2 H, Absolute Lymphs (auto) 0.11 L, Nucleated RBC % 0, Sodium 138, Potassium 4.8, Chloride 108 H, Carbon Dioxide 22.0, Anion Gap 8, BUN 46 H, Creatinine 2.09 H, Estim Creat Clear Calc 44.97, Est GFR (MDRD) Af Amer 40 L, Est GFR (MDRD) Non-Af 33 L, BUN/Creatinine Ratio 22.0 H, Glucose 281 H, Lactic Acid 2.8 H*, Calcium 9.6, Total Bilirubin 0.50, AST 61 H, ALT 34, Alkaline Phosphatase 49, Troponin I High Sens 96472 H*, Total Protein 6.8, Albumin 3.4, Globulin 3.4, Albumin/Globulin Ratio 1.0, Procalcitonin 0.10 H, TSH 0.663 Micro: Microbiology 06/28/24 23:35 Mucosa - Nose SARS-CoV-2, Influenza & RSV (PCR) - Final ABG Data ABG results: ABG 06/29/24 01:58 Specimen Type ALEKSEY Sample Site Not entered O2 % 30.0 VBG pH 7.33 VBG pO2 40 VBG HCO3 22 VBG Total CO2 23 VBG O2 Sat (Calc) 72 H VBG Base Excess -4 L POC Mix VBG pCO2 Pt Tmp 40.6 L O2 Delivery Device BiPAP Clinical Comments BIPAP. 20. 16. Radiography Diagnostic Testing: Radiology Impression Chest X-Ray 06/28/24 23:55 IMPRESSION: Diffuse interstitial process, suggesting pulmonary edema given venous congestion and cardiomegaly. Infectious etiology is not excluded. Electronically Signed: Mohinder Mckenzie MD at 1:35 EDT , Assessment & Plan Assessment/Plan (1) NSTEMI, initial episode of care: (2) Acute heart failure: PLAN: Plan The patient is a 73 y/o M was admitted for shortness of breath for 2 days prior to admission patient had right shoulder fluoroscopic guided triamcinolone/lidocaine injection by Dr. Owens. Patient was hypoxic requiring 4 L of oxygen though he does not wear oxygen at home. Patient is also chronic ex-smoker. #1. Acute HF Exacerbation, with lactic acidosis suspected primarily secondary to hypoxemia possible due to non-STEMI: Patient is being admitted in ICU. Lactic acid 2.4. Troponin 6342, 12,985. BNP elevated. Patient has leukocytosis mild related to recent steroid injection, repeat CBC shows normal WBC count. Chest x-ray individually reviewed and shows diffuse venous congestion. CT abdomen in October 2020 also reviewed and does not show acute abnormality except atelectasis. Previous chest x-ray in 2019 although did not show acute abnormality. Most recent ECHO noted 04/02/2019 with LV systolic function normal, EF 65%, trivial TVI, trivial PVI, RVSP 34 mmHg. Repeat echo ordered. Electrical Prospecting Operator consulted VBG 7.33/mixed pCO2 40.6 on BiPAP. Discussed with the continuity writer. On baby aspirin, Plavix, Zetia, metoprolol and ranolazine. 2. Unclear possible KWABENA or progression of CKD: Admission BUN/Cr 47/2.07, last noted 11/23/20 creatinine 1.70, repeat creatinine 2.09. BUN/creatinine ratio 22. Anion gap 8. Bicarb 22 #3. Possible non-STEMI, unclear type I or type II with chronic CAD: Status post CABG 2011 at [facility], continue patient cilostazol, asa/Plavix, metoprolol, Ranexa home regimen, not on statin therapy secondary to side effects but on fenofibrate and ezetimibe. Hold lisinopril due to increased creatinine #4 PAD: Status post peripheral PCI left lower extremity. #5. Diabetes mellitus type II: Hold oral home regimen. Accu-Chek before meals and at bedtime with Humalog sliding scale coverage and hypoglycemia protocol. #6. Hypertension: Monitor BP. BP 130s/79. Rest patient already on medications as mentioned above #7. Hyperlipidemia: Fasting profile ordered. #8. Chronic back pain, history of TIA, BPH, chronic AAA status postrepair 2017, SACHA on CPAP: Currently on on BiPAP 9. Morbid obesity: BMI 44.1 kg/m? #14. SACHA: CPAP nightly at home, currently on BIPAP as noted. #15. DVT prophylaxis: Heparin drip. #16. CODE status: Patient HCPOA is his who is present, living will is not in place. Discussed CODE status at length including difference between FULL code, DNR-CCA and DNR-CC status. Following discussions about the differences in these status, requested DNR-CCA, no intubation. Charges/Coding Visit Charges Inpatient E&M: 93648 Subs Hosp L3
[2024-06-29] MEDS: Insulin Lispro 100 UNIT/ML INSULN.PEN SC ×4 (07:57→20:49)
[2024-06-29 08:12] LABS: Partial Thromboplast Time 37.7 Seconds (24.1-36.2)
[2024-06-29 08:13] LABS: Bedside Glucose 241 mg/dL (74-106)
--- NOTE | 2024-06-29 08:15 | RAD_ITS ---
EXAM: XR CHEST, 1 VIEW CLINICAL INDICATION: Dyspnea TECHNIQUE: Frontal view of the chest. COMPARISON: 06/28/2024. FINDINGS: LUNGS AND PLEURAL SPACES: Unremarkable. No consolidation or edema. No pneumothorax. No effusion. HEART: Unremarkable. Cardiac silhouette not enlarged. MEDIASTINUM: Central airways and mediastinal contour are unremarkable. BONES/JOINTS: Intact sternal wires. No acute fracture. SOFT TISSUES: Unremarkable. RAD/Chest 1 View (Portable) IMPRESSION: 1. No acute findings in the chest. 2. Complete resolution of minimal thickening of the minor fissure. Electronically Signed: Joe Vargas MD at 10:42 EDT ,
[2024-06-29] MEDS: Heparin Injection (Vial) 5,000 UNIT/ML VIAL IV ×2 (08:22→22:36)
[2024-06-29] MEDS: Latanoprost 0.005% 1 Bottle 1 DRP EACH EYE (09:17)
[2024-06-29] MEDS: Aspirin E.C. 81 MG Tablet PO (09:17)
[2024-06-29] MEDS: Metoprolol Tartrate 25 MG Tablet PO ×2 (09:17→20:49)
[2024-06-29] MEDS: Ranolazine 500 MG Tablet PO ×2 (09:17→20:49)
[2024-06-29] MEDS: Tamsulosin HCl 0.4 MG Capsule PO (09:17)
[2024-06-29] MEDS: Fenofibrate 145 MG Tablet PO (09:17)
[2024-06-29] MEDS: Ezetimibe 10 MG Tablet PO (09:18)
[2024-06-29] MEDS: Clopidogrel Bisulfate 75 MG Tablet PO (09:18)
[2024-06-29] MEDS: Cilostazol 50 MG Tablet 100 MG PO ×2 (09:18→20:49)
[2024-06-29] MEDS: 0.9% Saline Lock 10 ML Syringe IV ×2 (09:18→17:04)
[2024-06-29] MEDS: Acetaminophen 325 MG Tablet 650 MG PO ×2 (09:34→17:04)
[2024-06-29] MEDS: oxyCODONE 5 MG Tablet PO ×2 (09:35→17:04)
[2024-06-29 09:39] LABS: Hemoglobin A1c 6.3 % (3.8-5.6)
[2024-06-29] MEDS: Magnesium Sulfate 2 GM in Dextrose 5%-Water (100mL Bag) 100 ML IV (10:36)
[2024-06-29] MEDS: guaiFENesin 1,200 MG Tablet 1200 MG PO ×2 (10:36→20:49)
--- NOTE | 2024-06-29 10:41 | EKG12_ITS ---
Test Reason : SOB Blood Pressure : / mmHG Vent. Rate : 119 BPM Atrial Rate : 119 BPM P-R Int : 144 ms QRS Dur : 090 ms QT Int : 316 ms P-R-T Axes : 037 110 165 degrees QTc Int : 444 ms Sinus tachycardia Premature ventricular complexes Right axis deviation Marked ST abnormality, possible lateral subendocardial injury Abnormal ECG Confirmed by NUSRAT COON, ROSS ([id number]), publication editor MIGDALIA GEORGE ([id number]) on 07/02/2024 2:10:46 PM Referred By: Confirmed By:ROSS SILVERIO MD
--- NOTE | 2024-06-29 10:45 | CASEMGMT ---
RN CM NOTE: Pt has traditional MCR and can transfer to any tertiary facility of choice, should transfer be recommended. Ambrose BSN RN CM
--- NOTE | 2024-06-29 11:00 | CASEMGMT ---
RN?CM?HOTEL ASSOCIATE?CM?to room to meet with patient for initial transition planning/care coordination?assessment.?RN?CM?introduced self and role at [facility].? Pt voices understanding and consents to?assessment?at this time.? Pt resting in bed in no distress at this time.? Pt is A/O at this time and answers all questions appropriately.?? Care providers, pharmacy, and demographics verified/updated at this time. PCP: Dr Brad Renner Specialists: Dr Cavazos (pt not sure on spelling)--occupational nurse @ [facility], Dr Riojas- pain mgnt, Dr Merrill Renner-ortho Preferred Pharmacy: [facility] Insurance: Khurram ALANIZ Prescription Benefit:?yes Living Will/HPOA:?States does not think he has a LW but states he has a HCPOA, who is his . LNOK: , Radha. 2 adult children. One lives in [place], [place]. The other lives in [place], [place] Living Arrangements: Lives w/his in one-story home w/no steps to enter. Indep w/ADL's and manages his own medications. does most home mgnt tasks. Transportation:?Pt states drives self and states no transportation concerns at this time.? also drives. DME: ?States has the following DME:?Has a glucometer but hasn't been checking his BS's, stating last time he checked it was a couple months ago. Has a CPAP from [facility]. No home O2. ?Pt states he does not know at this time if he will need anything at discharge yet. HHC/SNF: No hx of either. Pt does not anticipate any needs at this time. Therapy evals pending. Pt wishes to return home and states has no concerns with going home at time of discharge.? ?CM?to follow for home oxygen needs and any further discharge planning/needs.? Pt voices no further concerns/needs at this time.? Advised pt to ask for?CM?if any further questions/concerns/needs arise.? Voices understanding. PLAN:?? Home. Therapy evals pending. Follow for any discharge needs. Ambrose BSN?RN?CM
[2024-06-29 12:06] LABS: Bedside Glucose 240 mg/dL (74-106)
[2024-06-29 15:35] LABS: Magnesium 2.3 mg/dL (1.6-2.6); Phosphorus 3.5 mg/dL (2.5-4.9)
[2024-06-29 15:40] LABS: Partial Thromboplast Time 41.9 Seconds (24.1-36.2)
[2024-06-29 16:26] LABS: Bedside Glucose 222 mg/dL (74-106)
--- NOTE | 2024-06-29 17:00 | PCM.CONS.C ---
Assessment & Plan Assessment/Plan (1) Acute heart failure: QUALIFIERS: Heart failure type: unspecified Qualified Code(s): I50.9 - Heart failure, unspecified PLAN: 2D echo reveals apical hypokinesis that appears to be new. Agree with IV diuresis at this time. As patient continues to have frequent runs of nonsustained V. tach we will start him on a lidocaine drip in addition to the heparin drip. Continue metoprolol, aspirin, heparin, Plavix. Patient has acute on chronic CKD. Will plan on cardiac cath on Monday. Will attempt to get his last cath report from [facility]. (2) NSTEMI, initial episode of care: HPI Consult Data Date of Consult: 06/29/24 HPI Narrative Reason for Consultation: Non-STEMI, CHF HPI Narrative: ABAD JUNE, is a 73 M who presents with shortness of breath. He was found to be in CHF and was started on IV Lasix. His troponin was also significantly elevated and has been started on a heparin drip. Patient shortness of breath is improved but still worse than his baseline. He had chest pressure prior to presentation. He took 2 doses of nitroglycerin and his chest pressure resolved. He has not had further chest pressure. He has been having runs of nonsustained V. tach. He has history of CABG in 2011 at [facility]. He has been following at [facility] and has had cardiac caths after his bypass surgery. He does not recall getting any stents. He believes his last cath was in 2020. Review of systems: All systems reviewed. All else is negative except that in [facility] Medical History Loss of hearing Wears glasses Diabetes Arthritis High cholesterol Back pain TIA (transient ischemic attack) Syncope Dietary restriction Former smoker CPAP (continuous positive airway pressure) dependence History of pain when walking History of edema Cardiology follow-up encounter Hx of aortic aneurysm HTN (hypertension) PAD (peripheral artery disease) CAD (coronary artery disease) Home Medications ?Medication ?Instructions ?Recorded ?Last Taken ?Type cholecalciferol (vitamin D3) 50 4,000 unit PO DAILY sup[pliment 03/14/18 04/06/22 History mcg (2,000 unit) capsule (Vitamin D3) cilostazol 100 mg tablet 100 mg PO BID 03/14/18 04/06/22 History clopidogrel 75 mg tablet 75 mg PO DAILY heart 03/14/18 04/06/22 History ezetimibe 10 mg tablet 10 mg PO DAILY cholesterol 03/14/18 04/06/22 History lisinopril 10 mg tablet 40 mg PO BID blood pressure 03/14/18 04/06/22 History metoprolol tartrate 50 mg tablet 25 mg PO DAILY heart 03/14/18 04/06/22 History tamsulosin 0.4 mg capsule (Flomax) 0.4 mg PO DAILY urine flow 11/06/18 04/06/22 History amlodipine 10 mg tablet 10 mg PO DAILY 11/22/20 04/06/22 History fenofibrate 160 mg tablet 160 mg PO DAILY high cholesterol 03/23/22 04/06/22 History isosorbide mononitrate 60 mg 60 mg PO DAILY 03/23/22 04/06/22 History tablet,extended release 24 hr ranolazine 500 mg tablet,extended 500 mg PO BID 03/23/22 04/06/22 History release,12 hr aspirin 81 mg tablet,delayed 81 mg PO DAILY 06/29/24 Unknown History release (Adult Low Dose Aspirin) latanoprost 0.005 % eye drops 1 drp ophthalmic (eye) DAILY 06/29/24 Unknown History metformin 500 mg tablet 500 mg PO BID 06/29/24 Unknown History metoprolol tartrate 25 mg tablet 25 mg PO BID 06/29/24 Unknown History nitroglycerin 0.4 mg sublingual 0.4 mg sublingual UD angina 06/29/24 Unknown History tablet oxycodone-acetaminophen 5 mg-325 1 tab PO TID PRN PRN pain 06/29/24 Unknown History mg tablet potassium citrate 15 mEq (1,620 15 meq PO DAILY kidney stone 06/29/24 Unknown History mg) tablet,extended release prevention Allergy/AdvReac Type Severity Reaction Status Date / Time Eopqcxj-KYD-GkM Reductase Allergy Pain in Verified 06/28/24 22:18 Inhibitor (Dqjongm-Aml-Kck joints Reductase Inhibitor) Family History (Updated 06/29/24 @ 02:[address] Gloria Andrade MD) Mother Heart disease Hypertension CAD (coronary artery disease) Myocardial infarction Father Aneurysm Surgical History History of cardiac catheterization Hx of colonoscopy History of incision and drainage Hx of lithotripsy Hx of colectomy Hx of laminectomy Hx of laminectomy History of appendectomy History of tonsillectomy and adenoidectomy S/P peripheral artery angioplasty with stent placement Hx of CABG Social History (Updated 06/29/24 @ 02:[address] Gloria Andrade MD) household members: spouse Smoking Status: Former smoker how long ago did patient quit smoking: Quit ~ 7 yrs prior, smoked 2 ppd since 19 until quit. alcohol intake: never substance use type: does not use Physical Exam Const alert and oriented x3 HEENT normocephalic Neck Neck Narrative: Right jugular vein appears to be distended Resp normal respiratory effort Cardio regular rate Psych mental status grossly normal Risk Stratification Risk Stratification Applicable: No Charges/Coding Visit Charges Inpatient E&M: 01225 Init Hosp L2 Objective Data Vital Signs: Vital Signs Temp Pulse Resp BP Pulse Ox O2 Del Method O2 Flow Rate 97.4 F L 110 H 16 98/68 97 CPAP 4 06/29/24 16:00 06/29/24 16:00 06/29/24 16:00 06/29/24 16:00 06/29/24 16:00 06/29/24 16:00 06/29/24 16:00 FiO2 30 06/29/24 01:34 Oxygen Flow Rate (L/min) 4 Oxygen Delivery Method CPAP Weight: 307 lb 1.663 oz Body Mass Index (BMI) 43.9 Intake & Output: Intake and Output for Last 24 Hours 06/27/24 06/28/24 06/29/24 23:59 23:59 23:59 Intake Total 1167.44 / 1167.44 Output Total 2730 / 2730 Balance -1562.56 / -1562.56 Lab / Micro Data 06/29/24 04:08 06/29/24 04:08 Labs: Laboratory Results - last 24 hr 06/28/24 22:25: WBC 14.7 H, RBC 4.91, Hgb 14.4, Hct 45.8, MCV 93.3, MCH 29.3, MCHC 31.4 L, RDW Std Deviation 45.4 H, RDW Coeff of Jarrod 13.2, Plt Count 322, MPV 11.1, Immature Gran % (Auto) 0.600, Neut % (Auto) 84.2 H, Lymph % (Auto) 4.5 L, [place] % (Auto) 10.6 H, Eos % (Auto) 0.0, Baso % (Auto) 0.1, Absolute Neuts (auto) 12.4 H, Absolute Lymphs (auto) 0.67 L, Nucleated RBC % 0, Differential Comment SCANNED, Diff Path Review January, PT 12.6, INR 0.9, APTT 25.5, Sodium 138, Potassium 4.8, Chloride 109 H, Carbon Dioxide 22.0, Anion Gap 8, BUN 47 H, Creatinine 2.07 H, Estim Creat Clear Calc 45.70, Est GFR (MDRD) Af Amer 41 L, Est GFR (MDRD) Non-Af 34 L, BUN/Creatinine Ratio 22.7 H, Glucose 246 H, Calcium 9.9, Troponin I High Sens 6342 H*, B-Natriuretic Peptide 654.8 H 06/28/24 23:37: Lactic Acid 2.4 H* 06/29/24 00:40: Magnesium 1.6, Troponin I High Sens 6046 H* 06/29/24 04:08: WBC 9.6, RBC 4.55 L, Hgb 13.4, Hct 42.2, MCV 92.7, MCH 29.5, MCHC 31.8 L, RDW Std Deviation 44.8 H, RDW Coeff of Jarrod 13.2, Plt Count 290, MPV 10.6, Immature Gran % (Auto) 0.600, Neut % (Auto) 95.6 H, Lymph % (Auto) 1.1 L, [place] % (Auto) 2.6, Eos % (Auto) 0.0, Baso % (Auto) 0.1, Absolute Neuts (auto) 9.2 H, Absolute Lymphs (auto) 0.11 L, Nucleated RBC % 0, Sodium 138, Potassium 4.8, Chloride 108 H, Carbon Dioxide 22.0, Anion Gap 8, BUN 46 H, Creatinine 2.09 H, Estim Creat Clear Calc 44.97, Est GFR (MDRD) Af Amer 40 L, Est GFR (MDRD) Non-Af 33 L, BUN/Creatinine Ratio 22.0 H, Glucose 281 H, Hemoglobin A1c 6.3 H, Lactic Acid 2.8 H*, Calcium 9.6, Total Bilirubin 0.50, AST 61 H, ALT 34, Alkaline Phosphatase 49, Troponin I High Sens 80572 H*, Total Protein 6.8, Albumin 3.4, Globulin 3.4, Albumin/Globulin Ratio 1.0, Procalcitonin 0.10 H, TSH 0.663 06/29/24 07:50: APTT 37.7 H 06/29/24 07:54: POC Glucose 241 H 06/29/24 11:46: POC Glucose 240 H 06/29/24 15:00: APTT 41.9 H, Phosphorus 3.5, Magnesium 2.3 06/29/24 15:59: POC Glucose 222 H Micro: Microbiology 06/28/24 23:35 Mucosa - Nose SARS-CoV-2, Influenza & RSV (PCR) - Final ABG Data ABG results: ABG 06/29/24 01:58 Specimen Type ALEKSEY Sample Site Not entered O2 % 30.0 VBG pH 7.33 VBG pO2 40 VBG HCO3 22 VBG Total CO2 23 VBG O2 Sat (Calc) 72 H VBG Base Excess -4 L POC Mix VBG pCO2 Pt Tmp 40.6 L O2 Delivery Device BiPAP Clinical Comments BIPAP. 20. 16. Cardiology Labs/Tests 06/28/24 22:25: WBC 14.7 H, RBC 4.91, Hgb 14.4, Hct 45.8, MCV 93.3, MCH 29.3, MCHC 31.4 L, Plt Count 322, MPV 11.1, Immature Gran % (Auto) 0.600, Neut % (Auto) 84.2 H, Lymph % (Auto) 4.5 L, [place] % (Auto) 10.6 H, Eos % (Auto) 0.0, Baso % (Auto) 0.1, Absolute Neuts (auto) 12.4 H, Nucleated RBC % 0, PT 12.6, INR 0.9, APTT 25.5, Sodium 138, Potassium 4.8, Chloride 109 H, Carbon Dioxide 22.0, Anion Gap 8, BUN 47 H, Creatinine 2.07 H, Est GFR (MDRD) Af Amer 41 L, Est GFR (MDRD) Non-Af 34 L, BUN/Creatinine Ratio 22.7 H, Glucose 246 H, Calcium 9.9, B-Natriuretic Peptide 654.8 H 06/28/24 23:37: Lactic Acid 2.4 H* 06/29/24 00:40: Magnesium 1.6 06/29/24 01:58: VBG pH 7.33, VBG pO2 40, VBG HCO3 22, VBG O2 Sat (Calc) 72 H, VBG Base Excess -4 L 06/29/24 04:08: WBC 9.6, RBC 4.55 L, Hgb 13.4, Hct 42.2, MCV 92.7, MCH 29.5, MCHC 31.8 L, Plt Count 290, MPV 10.6, Immature Gran % (Auto) 0.600, Neut % (Auto) 95.6 H, Lymph % (Auto) 1.1 L, [place] % (Auto) 2.6, Eos % (Auto) 0.0, Baso % (Auto) 0.1, Absolute Neuts (auto) 9.2 H, Nucleated RBC % 0, Sodium 138, Potassium 4.8, Chloride 108 H, Carbon Dioxide 22.0, Anion Gap 8, BUN 46 H, Creatinine 2.09 H, Est GFR (MDRD) Af Amer 40 L, Est GFR (MDRD) Non-Af 33 L, BUN/Creatinine Ratio 22.0 H, Glucose 281 H, Hemoglobin A1c 6.3 H, Lactic Acid 2.8 H*, Calcium 9.6, Total Bilirubin 0.50 06/29/24 07:50: APTT 37.7 H 06/29/24 15:00: APTT 41.9 H, Phosphorus 3.5, Magnesium 2.3 Rhythm: EKG: ECHO: Stress Test: Cardiac Cath: PCI: CT Surgery: Holter monitor: EPS: PPM: CXR: Chest CT Scan: Radiography Diagnostic Testing: Radiology Impression Chest X-Ray 06/28/24 23:55 IMPRESSION: Diffuse interstitial process, suggesting pulmonary edema given venous congestion and cardiomegaly. Infectious etiology is not excluded. Electronically Signed: Mohinder Mckenzie MD at 1:35 EDT , Echocardiogram 06/29/24 02:58 Interpretation Summary Technically difficult study The estimated ejection fraction is 40-45 %. [place] : Hypokinetic. Ordering Physician: Gloria Andrade Referring Physician: Brad Owens Performed By: Berta Slade, MYNOR, RVT Chest X-Ray 06/29/24 08:15 IMPRESSION: 1. No acute findings in the chest. 2. Complete resolution of minimal thickening of the minor fissure. Electronically Signed: Joe Vargas MD at 10:42 EDT ,
[2024-06-29] MEDS: Lidocaine/D5W 2,000 MG/250 ML IV.SOLN 7.5 MG CONT INF (17:03)
[2024-06-29] MEDS: Senna/Docusate Sodium 1 Tablet 2 TABLET PO (20:49)
[2024-06-29 21:11] LABS: Bedside Glucose 238 mg/dL (74-106)
[2024-06-29 22:10] LABS: Partial Thromboplast Time 37.2 Seconds (24.1-36.2)
[2024-06-30] VITALS (31 sets, daily range): BP systolic 95–132; BP diastolic 56–98; PULSE 65–110; RESP 12–27; TEMP 36.1–36.3; O2SAT 92–98; BMI 43.5
[2024-06-30] MEDS: HEPARIN/D5w 25,000 UNITS 25,000 UNITS/250 ML IV.SOLN. 15 UNITS CONT INF (00:36)
--- NOTE | 2024-06-30 01:10 | EKG12_ITS ---
Test Reason : Blood Pressure : / mmHG Vent. Rate : 122 BPM Atrial Rate : 073 BPM P-R Int : 146 ms QRS Dur : 086 ms QT Int : 356 ms P-R-T Axes : 025 104 173 degrees QTc Int : 507 ms Critical Test Result: Arrhythmia Sinus rhythm with frequent Premature ventricular complexes Rightward axis Short run of Ventricular Tachycardia T wave abnormality, consider anterolateral ischemia Abnormal ECG Confirmed by Scott Campo ([id number]), international editorial producer MIGDALIA GEORGE ([id number]) on 07/11/2024 1:16:16 PM Referred By: Confirmed By:Scott Campo
--- NOTE | 2024-06-30 01:12 | EKG12_ITS ---
Test Reason : Blood Pressure : / mmHG Vent. Rate : 117 BPM Atrial Rate : 096 BPM P-R Int : 150 ms QRS Dur : 084 ms QT Int : 372 ms P-R-T Axes : 044 101 184 degrees QTc Int : 518 ms Critical Test Result: Arrhythmia Sinus rhythm with frequent and consecutive Premature ventricular complexes Rightward axis Short run of Ventricular Tachycardia T wave abnormality, consider anterolateral ischemia Abnormal ECG Confirmed by Scott Campo ([id number]), editor & co founder MIGDALIA GEORGE ([id number]) on 07/11/2024 1:15:50 PM Referred By: Confirmed By:Scott Camop
--- NOTE | 2024-06-30 01:38 | EKG12_ITS ---
Test Reason : Blood Pressure : / mmHG Vent. Rate : 080 BPM Atrial Rate : 080 BPM P-R Int : 148 ms QRS Dur : 084 ms QT Int : 358 ms P-R-T Axes : 017 106 181 degrees QTc Int : 412 ms Sinus rhythm with marked sinus arrhythmia Rightward axis T wave abnormality, consider anterolateral ischemia Abnormal ECG When compared with ECG of 29-JUN-2024 03:05, Premature ventricular complexes are no longer Present T wave inversion now evident in Anterior leads Confirmed by Scott Campo ([id number]), content editor MIGDALIA GEORGE ([id number]) on 07/11/2024 1:10:00 PM Referred By: Confirmed By:Scott Campo
[2024-06-30 04:55] LABS: Absolute Lymphocyte Count 0.46 X10^3/uL (0.83-4.51); Absolute Neutrophil Count 7.8 X10^3/uL (2.0-7.7); Basophil# 0.02 X10^3/uL; Basophil% 0.2 % (0-1); Hematocrit 40.7 % (40-54); Lymphocyte # 0.46 X10^3/ul (0.83-4.51); Lymphocyte % 4.8 % (19-41); Mean Corp Hgb Conc 31.9 g/dL (32-36); Mean Corpuscular Hgb 29.5 pg (27.0-32.0); Mean Corpuscular Volume 92.3 fL (80-94); Mean Platelet Vol. 10.6 fl (6.2-12.0); Monocyte# 1.22 X10^3/uL; Monocyte% 12.8 % (0-10); NRBC Flagged by Analyzer 0 % (0-5); Neutrophil # 7.75 X10^3/uL (2.7-7.7); Neutrophil % 81.7 % (47-70); POSITIVE DIFFERENTIAL YES; Platelet Count 290 K/mm3 (150-450); RBC Distribution Width CV 13.2 % (11.6-14.6); RBC Distribution Width SD 45.4 fl (35.1-43.9); Red Blood Count 4.41 M/mm3 (4.6-6.2); White Blood Count 9.5 K/mm3 (4.4-11.0)
[2024-06-30 05:06] LABS: Partial Thromboplast Time 57.8 Seconds (24.1-36.2)
[2024-06-30 05:11] LABS: Anion Gap 6 (5-15); BUN 54 mg/dL (7-18); BUN/Creat Ratio 23.3 RATIO (10-20); Calcium,Total 9.6 mg/dL (8.5-10.1); Chloride 105 mmol/L (98-107); Cholesterol 163 mg/dL (200); Creatinine, Serum 2.32 mg/dL (0.70-1.30); EST Glomerular Filtration Rate 30 mL/min (>60); Est Glom Filt Rate - Afr Amer 36 mL/min (>60); Estimated Creatinine Clearance 40.32 ml/min; Glucose 169 mg/dL (74-106); High Density Lipoprotein 80 mg/dL; Potassium 4.8 mmol/L (3.5-5.1); Sodium Level 136 mmol/L (136-145); Triglycerides 78 mg/dL; Very Low Density Lipoprotein 16 mg/dL (5-40)
[2024-06-30] MEDS: Insulin Lispro 100 UNIT/ML INSULN.PEN SC ×4 (07:51→20:30)
[2024-06-30 08:22] LABS: Bedside Glucose 163 mg/dL (74-106)
[2024-06-30] MEDS: Fenofibrate 145 MG Tablet PO (09:16)
[2024-06-30] MEDS: Ranolazine 500 MG Tablet PO ×2 (09:16→20:30)
[2024-06-30] MEDS: Ezetimibe 10 MG Tablet PO (09:16)
[2024-06-30] MEDS: Cilostazol 50 MG Tablet 100 MG PO ×2 (09:16→20:36)
[2024-06-30] MEDS: Metoprolol Tartrate 25 MG Tablet PO ×2 (09:16→20:31)
[2024-06-30] MEDS: Clopidogrel Bisulfate 75 MG Tablet PO (09:16)
[2024-06-30] MEDS: Tamsulosin HCl 0.4 MG Capsule PO (09:17)
[2024-06-30] MEDS: Latanoprost 0.005% 1 Bottle 1 DRP EACH EYE (09:17)
[2024-06-30] MEDS: guaiFENesin 1,200 MG Tablet 1200 MG PO ×2 (09:17→20:30)
[2024-06-30] MEDS: Senna/Docusate Sodium 1 Tablet 2 TABLET PO ×2 (09:17→20:30)
[2024-06-30] MEDS: Aspirin E.C. 81 MG Tablet PO (09:17)
[2024-06-30] MEDS: 0.9% Saline Lock 10 ML Syringe IV ×2 (09:17→17:19)
[2024-06-30] MEDS: Furosemide 40 MG/4 ML Vial IV ×2 (09:17→17:19)
[2024-06-30 11:32] LABS: Partial Thromboplast Time 50.4 Seconds (24.1-36.2)
--- NOTE | 2024-06-30 11:37 | PN.CARD_ITS ---
Subjective Subjective Shortness of breath is better than yesterday. Patient still has some difficulty lying down flat. His creatinine went up slightly. PVCs/nonsustained V. tach is stable or improved on IV lidocaine. Objective Data Vital Signs: Vital Signs Temp Pulse Resp BP Pulse Ox O2 Del Method O2 Flow Rate 97.1 F L 98 18 123/56 H 97 Room Air 4 06/30/24 11:00 06/30/24 11:00 06/30/24 11:00 06/30/24 11:00 06/30/24 11:00 06/30/24 11:00 06/30/24 10:00 FiO2 30 06/29/24 01:34 Oxygen Flow Rate (L/min) 4 Oxygen Delivery Method Room Air Weight: 304 lb 7.334 oz Body Mass Index (BMI) 43.5 Intake & Output: Intake and Output for Last 24 Hours 06/28/24 06/29/24 06/30/24 23:59 23:59 23:59 Intake Total 1667.14 / 1667.14 473.03 / 473.03 Output Total 4230 / 4230 1000 / 1000 Balance -2562.86 / -2562.86 -526.97 / -526.97 Lab / Micro Data 06/30/24 04:35 06/30/24 04:35 Labs: Laboratory Results - last 24 hr 06/29/24 11:46: POC Glucose 240 H 06/29/24 15:00: APTT 41.9 H, Phosphorus 3.5, Magnesium 2.3 06/29/24 15:59: POC Glucose 222 H 06/29/24 20:47: POC Glucose 238 H 06/29/24 21:50: APTT 37.2 H 06/30/24 04:35: WBC 9.5, RBC 4.41 L, Hgb 13.0, Hct 40.7, MCV 92.3, MCH 29.5, M CHC 31.9 L, RDW Std Deviation 45.4 H, RDW Coeff of Jarrod 13.2, Plt Count 290, MPV 10.6, Immature Gran % (Auto) 0.500, Neut % (Auto) 81.7 H, Lymph % (Auto) 4.8 L, [place] % (Auto) 12.8 H, Eos % (Auto) 0.0, Baso % (Auto) 0.2, Absolute Neuts (auto) 7.8 H, Absolute Lymphs (auto) 0.46 L, Nucleated RBC % 0, APTT 57.8 H, Sodium 136, Potassium 4.8, Chloride 105, Carbon Dioxide 25.0, Anion Gap 6, BUN 54 H, C reatinine 2.32 H, Estim Creat Clear Calc 40.32, Est GFR (MDRD) Af Amer 36 L, Est GFR (MDRD) Non-Af 30 L, BUN/Creatinine Ratio 23.3 H, Glucose 169 H, Calcium 9.6, Triglycerides 78, Cholesterol 163, LDL Cholesterol 67, VLDL Cholesterol 16, HDL Cholesterol 80 06/30/24 07:50: POC Glucose 163 H 06/30/24 11:15: APTT 50.4 H Cardiology Labs/Tests 06/29/24 15:00: APTT 41.9 H, Phosphorus 3.5, Magnesium 2.3 06/29/24 21:50: APTT 37.2 H 06/30/24 04:35: WBC 9.5, RBC 4.41 L, Hgb 13.0, Hct 40.7, MCV 92.3, MCH 29.5, M CHC 31.9 L, Plt Count 290, MPV 10.6, Immature Gran % (Auto) 0.500, Neut % (Auto) 81.7 H, Lymph % (Auto) 4.8 L, [place] % (Auto) 12.8 H, Eos % (Auto) 0.0, Baso % (Auto) 0.2, Absolute Neuts (auto) 7.8 H, Nucleated RBC % 0, APTT 57.8 H, Sodium 136, Potassium 4.8, Chloride 105, Carbon Dioxide 25.0, Anion Gap 6, BUN 54 H, C reatinine 2.32 H, Est GFR (MDRD) Af Amer 36 L, Est GFR (MDRD) Non-Af 30 L, B UN/Creatinine Ratio 23.3 H, Glucose 169 H, Calcium 9.6, Triglycerides 78, Cholesterol 163, LDL Cholesterol 67, VLDL Cholesterol 16, HDL Cholesterol 80 06/30/24 11:15: APTT 50.4 H Rhythm: EKG: ECHO: Stress Test: Cardiac Cath: PCI: CT Surgery: Holter monitor: EPS: PPM: CXR: Chest CT Scan: Radiography Diagnostic Testing: Radiology Impression Echocardiogram 06/29/24 02:58 Interpretation Summary Technically difficult study The estimated ejection fraction is 40-45 %. [place] : Hypokinetic. Ordering Physician: Gloria Andrade Referring Physician: Brad Owens Performed By: Berta Slade, RODNEYCS, RVT Physical Exam Const alert and oriented x3 HEENT normocephalic Eyes no scleral icterus Resp normal respiratory effort Resp Narrative: Minimal bibasal crackles Cardio regular rate Extremity Extremity Narrative: 1-2+ right lower extremity edema that is chronic. No edema on the left side Psych mental status grossly normal Assessment & Plan Assessment/Plan (1) Acute heart failure: QUALIFIERS: Heart failure type: unspecified Qualified Code(s): I 50.9 - Heart failure, unspecified PLAN: 2D echo reveals apical hypokinesis that appears to be new. While patient's creatinine has gone up slightly, he still has bibasal crackles and shortness of breath is not back to baseline. Will continue IV Lasix overnight. Check creatinine tomorrow. If creatinine is improving we could consider coronary angiography tomorrow. If the creatinine is worsening then we may have to reconsider. We will also get his last cath report from [facility]. Continue IV lidocaine and IV heparin at this time (2) NSTEMI, initial episode of care: Charges/Coding Visit Charges Inpatient E&M: 16160 Subs Hosp L1
[2024-06-30 11:45] LABS: Bedside Glucose 193 mg/dL (74-106)
--- NOTE | 2024-06-30 12:21 | PN.HOSP_ITS ---
Reason for Visit Reason for Visit: Diagnoses Non-ST elevation (NSTEMI) myocardial infarction (06/29/24) Heart failure, unspecified (06/29/24) Objective Data Objective Data Vital Signs: Vital Signs Temp Pulse Resp BP Pulse Ox O2 Del Method O2 Flow Rate 97.1 F L 98 18 123/56 H 97 Room Air 4 06/30/24 11:00 06/30/24 11:00 06/30/24 11:00 06/30/24 11:00 06/30/24 11:00 06/30/24 11:00 06/30/24 10:00 FiO2 30 06/29/24 01:34 Oxygen Flow Rate (L/min) 4 Oxygen Delivery Method Room Air Weight: 304 lb 7.334 oz Body Mass Index (BMI) 43.5 Intake & Output: Intake and Output for Last 24 Hours 06/28/24 06/29/24 06/30/24 23:59 23:59 23:59 Intake Total 1667.14 / 1667.14 473.03 / 473.03 Output Total 4230 / 4230 1000 / 1000 Balance -2562.86 / -2562.86 -526.97 / -526.97 Lab / Micro Data 06/30/24 04:35 06/30/24 04:35 Labs: Laboratory Results - last 24 hr 06/29/24 15:00: APTT 41.9 H, Phosphorus 3.5, Magnesium 2.3 06/29/24 15:59: POC Glucose 222 H 06/29/24 20:47: POC Glucose 238 H 06/29/24 21:50: APTT 37.2 H 06/30/24 04:35: WBC 9.5, RBC 4.41 L, Hgb 13.0, Hct 40.7, MCV 92.3, MCH 29.5, M CHC 31.9 L, RDW Std Deviation 45.4 H, RDW Coeff of Jarrod 13.2, Plt Count 290, MPV 10.6, Immature Gran % (Auto) 0.500, Neut % (Auto) 81.7 H, Lymph % (Auto) 4.8 L, [place] % (Auto) 12.8 H, Eos % (Auto) 0.0, Baso % (Auto) 0.2, Absolute Neuts (auto) 7.8 H, Absolute Lymphs (auto) 0.46 L, Nucleated RBC % 0, APTT 57.8 H, Sodium 136, Potassium 4.8, Chloride 105, Carbon Dioxide 25.0, Anion Gap 6, BUN 54 H, C reatinine 2.32 H, Estim Creat Clear Calc 40.32, Est GFR (MDRD) Af Amer 36 L, Est GFR (MDRD) Non-Af 30 L, BUN/Creatinine Ratio 23.3 H, Glucose 169 H, Calcium 9.6, Triglycerides 78, Cholesterol 163, LDL Cholesterol 67, VLDL Cholesterol 16, HDL Cholesterol 80 06/30/24 07:50: POC Glucose 163 H 06/30/24 11:15: APTT 50.4 H 06/30/24 11:22: POC Glucose 193 H Micro: Microbiology 06/28/24 23:35 Mucosa - Nose SARS-CoV-2, Influenza & RSV (PCR) - Final Radiography Diagnostic Testing: Radiology Impression Echocardiogram 06/29/24 02:58 Interpretation Summary Technically difficult study The estimated ejection fraction is 40-45 %. [place] : Hypokinetic. Ordering Physician: Gloria Andrade Referring Physician: Brad Owens Performed By: Berta Slade, RDCS, RVT Physical Exam Narrative Seen and examined. On 4 L of home oxygen with CPAP. No oxygen at baseline. Patient had NSVT and was started on lidocaine drip. Plan for heart cath on Monday but elevated creatinine Physical exam General: Alert, Oriented x3, Cooperative. Morbid obesity BMI 43.7 kg/m? HEENT: Uses nasal CPAP. Atraumatic, PERRLA, EOMI, Normocephalic Oral: No Gingival or Mucosal Lesions/ Ulcerations Neck: Supple, No JVD, Negative Carotid Bruits Chest wall/Lungs: Air entry diminished in bilateral lung bases. Mild bilateral expiratory rhonchi and wheezing. 4 L of oxygen with CPAP during night. Cardiovascular: Sinus rhythm with multiple PVCs, NSVT. CABG scar. Murmur systolic. Abdomen: Bowel Sounds Present, Soft, Non Tender, Non-Distended : No dysuria. No renal angle tenderness. No suprapubic tenderness. Extremities: 1+ pedal edema, Capillary Refill Less than 3 Seconds Skin: No rashes, No breakdown Musculoskeletal: No Tenderness to Palpation of Joints or Extremities. ROM restricted Neurological: Cranial nerves II-XII grossly intact, DTR 2+/4. No acute focal neurological deficit. Psych/Mental Status: Flat affect Assessment & Plan Assessment/Plan (1) NSTEMI, initial episode of care: (2) Acute heart failure: QUALIFIERS: Heart failure type: unspecified Qualified Code(s): I 50.9 - Heart failure, unspecified PLAN: Plan The patient is a 73 y/o M was admitted for shortness of breath for 2 days prior to admission patient had right shoulder fluoroscopic guided triamcinolone/lidocaine injection by Dr. Renner. Patient was hypoxic requiring 4 L of oxygen though he does not wear oxygen at home. Patient is also chronic ex-smoker. #1. Acute HF Exacerbation, with lactic acidosis suspected primarily secondary to hypoxemia possible due to non-STEMI: Patient is being admitted in ICU. Lactic acid 2.4. Troponin 6342, 12,985. BNP elevated. Patient has leukocytosis mild related to recent steroid injection, repeat CBC shows normal WBC count. Chest x-ray individually reviewed and shows diffuse venous congestion. CT abdomen in October 2020 also reviewed and does not show acute abnormality except atelectasis. Previous chest x-ray in 2019 although did not show acute abnormality. Most recent ECHO noted 04/02/2019 with LV systolic function normal, EF 65%, trivial TVI, trivial PVI, RVSP 34 mmHg. Repeat echo ordered. [employer] Service Manager consulted VBG 7.33/mixed pCO2 40.6 on BiPAP. Discussed with the national park tour guide. On baby aspirin, Plavix, Zetia, metoprolol and ranolazine. 44 years of smoking, 2 pack/day. 06/30: 2D echo shows apical hypokinesis that appears new. Continue IV diuresis. Patient had frequent runs of NSVT and therefore started on digoxin.. Continue IV heparin drip. Plan for cardiac cath on Monday. Frequencies of NSVT has decreased/improved, IV lidocaine. Serum magnesium 2.3. Phosphorus 3.5. Lipid profile within normal limit. 2. Unclear possible KWABENA or progression of CKD: Admission BUN/Cr 47/2.07, last noted 11/23/20 creatinine 1.70, repeat creatinine 2.09. BUN/creatinine ratio 22. Anion gap 8. Bicarb 22 #3. Possible non-STEMI, unclear type I or type II with chronic CAD: Status post CABG 2011 at [facility], continue patient cilostazol, asa/Plavix, metoprolol, Ranexa home regimen, not on statin therapy secondary to side effects but on fenofibrate and ezetimibe. Hold lisinopril due to increased creatinine #4 PAD: Status post peripheral PCI left lower extremity. #5. Diabetes mellitus type II: Hold oral home regimen. Accu-Chek before meals and at bedtime with Humalog sliding scale coverage and hypoglycemia protocol. #6. Hypertension: Monitor BP. BP 130s/79. Rest patient already on medications as mentioned above #7. Hyperlipidemia: Lipid profile within normal limit #8. Chronic back pain, history of TIA, BPH, chronic AAA status postrepair 2017, SACHA on CPAP: Currently on on BiPAP 9. Morbid obesity: BMI 44.1 kg/m? 10. SACHA: CPAP nightly at home, currently on BIPAP as noted. DVT prophylaxis: Heparin drip. CODE status: Patient MELISSA is his who is present, living will is not in place. Discussed CODE status at length including difference between FULL code, DNR-CCA and DNR-CC status. Following discussions about the differences in these status, requested DNR-CCA, no intubation. Microbiology Past 72 Hours 06/28/24 23:35 Mucosa - Nose SARS-CoV-2, Influenza & RSV (PCR) - Final Laboratory Results 06/29/24 15:00: APTT 41.9 H, Phosphorus 3.5, Magnesium 2.3 06/29/24 15:59: POC Glucose 222 H 06/29/24 20:47: POC Glucose 238 H 06/29/24 21:50: APTT 37.2 H 06/30/24 04:35: WBC 9.5, RBC 4.41 L, Hgb 13.0, Hct 40.7, MCV 92.3, MCH 29.5, M CHC 31.9 L, RDW Std Deviation 45.4 H, RDW Coeff of Jarrod 13.2, Plt Count 290, MPV 10.6, Immature Gran % (Auto) 0.500, Neut % (Auto) 81.7 H, Lymph % (Auto) 4.8 L, [place] % (Auto) 12.8 H, Eos % (Auto) 0.0, Baso % (Auto) 0.2, Absolute Neuts (auto) 7.8 H, Absolute Lymphs (auto) 0.46 L, Nucleated RBC % 0, APTT 57.8 H, Sodium 136, Potassium 4.8, Chloride 105, Carbon Dioxide 25.0, Anion Gap 6, BUN 54 H, C reatinine 2.32 H, Estim Creat Clear Calc 40.32, Est GFR (MDRD) Af Amer 36 L, Est GFR (MDRD) Non-Af 30 L, BUN/Creatinine Ratio 23.3 H, Glucose 169 H, Calcium 9.6, Triglycerides 78, Cholesterol 163, LDL Cholesterol 67, VLDL Cholesterol 16, HDL Cholesterol 80 06/30/24 07:50: POC Glucose 163 H 06/30/24 11:15: APTT 50.4 H 06/30/24 11:22: POC Glucose 193 H Clinical Impression(s) from Imaging Studies Chest X-Ray 06/28/24 23:55 IMPRESSION: Diffuse interstitial process, suggesting pulmonary edema given venous congestion and cardiomegaly. Infectious etiology is not excluded. Electronically Signed: Mohinder Mckenzie MD at 1:35 EDT , Echocardiogram 06/29/24 02:58 Interpretation Summary Technically difficult study The estimated ejection fraction is 40-45 %. [place] : Hypokinetic. Ordering Physician: Gloria Andrade Referring Physician: Brad Owens Performed By: Berta Slade RODNEYCS, RVT Chest X-Ray 06/29/24 08:15 IMPRESSION: 1. No acute findings in the chest. 2. Complete resolution of minimal thickening of the minor fissure. Electronically Signed: Joe Vargas MD at 10:42 EDT ,
[2024-06-30] MEDS: HEPARIN/D5w 25,000 UNITS 25,000 UNITS/250 ML IV.SOLN. 16 UNITS CONT INF (16:05)
[2024-06-30] MEDS: Acetaminophen 325 MG Tablet 650 MG PO (16:10)
[2024-06-30] MEDS: oxyCODONE 5 MG Tablet PO (16:10)
[2024-06-30 16:25] LABS: Bedside Glucose 178 mg/dL (74-106)
[2024-06-30 19:11] LABS: Partial Thromboplast Time 56.2 Seconds (24.1-36.2)
[2024-06-30 20:55] LABS: Bedside Glucose 199 mg/dL (74-106)
[2024-07-01] VITALS (17 sets, daily range): BP systolic 94–133; BP diastolic 55–93; PULSE 69–107; RESP 15–26; TEMP 36.1–36.4; O2SAT 94–99; BMI 43.2
[2024-07-01] MEDS: Lidocaine/D5W 2,000 MG/250 ML IV.SOLN 7.5 MG CONT INF (01:45)
[2024-07-01 02:13] LABS: Absolute Lymphocyte Count 0.47 X10^3/uL (0.83-4.51); Basophil# 0.03 X10^3/uL; Basophil% 0.3 % (0-1); Eosinophil# 0.04 X10^3/uL; Eosinophils% 0.5 % (0-5); Hematocrit 41.9 % (40-54); Hemoglobin 13.5 g/dL (13.0-16.5); Lymphocyte # 0.47 X10^3/ul (0.83-4.51); Lymphocyte % 5.3 % (19-41); Mean Corp Hgb Conc 32.2 g/dL (32-36); Mean Corpuscular Hgb 29.5 pg (27.0-32.0); Mean Corpuscular Volume 91.5 fL (80-94); Mean Platelet Vol. 10.5 fl (6.2-12.0); Monocyte# 1.18 X10^3/uL; Monocyte% 13.4 % (0-10); NRBC Flagged by Analyzer 0 % (0-5); Neutrophil # 7.02 X10^3/uL (2.7-7.7); Neutrophil % 79.6 % (47-70); POSITIVE DIFFERENTIAL YES; Platelet Count 257 K/mm3 (150-450); RBC Distribution Width CV 13.2 % (11.6-14.6); RBC Distribution Width SD 44.3 fl (35.1-43.9); Red Blood Count 4.58 M/mm3 (4.6-6.2); White Blood Count 8.8 K/mm3 (4.4-11.0)
[2024-07-01 02:23] LABS: Partial Thromboplast Time 61.8 Seconds (24.1-36.2)
[2024-07-01 02:26] LABS: Anion Gap 9 (5-15); BUN 61 mg/dL (7-18); BUN/Creat Ratio 26.1 RATIO (10-20); Calcium,Total 9.4 mg/dL (8.5-10.1); Chloride 103 mmol/L (98-107); Creatinine, Serum 2.34 mg/dL (0.70-1.30); EST Glomerular Filtration Rate 29 mL/min (>60); Est Glom Filt Rate - Afr Amer 35 mL/min (>60); Estimated Creatinine Clearance 39.97 ml/min; Glucose 174 mg/dL (74-106); Potassium 4.2 mmol/L (3.5-5.1); Sodium Level 135 mmol/L (136-145)
--- NOTE | 2024-07-01 05:18 | EKG12_ITS ---
Test Reason : Blood Pressure : / mmHG Vent. Rate : 118 BPM Atrial Rate : 097 BPM P-R Int : 148 ms QRS Dur : 082 ms QT Int : 384 ms P-R-T Axes : 032 097 182 degrees QTc Int : 538 ms Critical Test Result: Arrhythmia Sinus rhythm with frequent and consecutive Premature ventricular complexes Rightward axis Short run of Ventricular Tachycardia T wave abnormality, consider anterolateral ischemia Prolonged QT Abnormal ECG Confirmed by Scott Campo ([id number]), subeditor MIGDALIA GEORGE ([id number]) on 07/11/2024 1:11:47 PM Referred By: Confirmed By:Scott Campo
[2024-07-01] MEDS: Amiodarone 150 MG in Dextrose 5%-Water (100mL Bag) 100 ML 600 MG IV BOLUS (07:50)
[2024-07-01] MEDS: 0.9% Saline Lock 10 ML Syringe IV ×2 (07:55→09:50)
[2024-07-01] MEDS: Amiodarone 360 MG in Dextrose 5% Viaflo Bag 192.8 ML 33.3 MG CONT INF (08:04)
[2024-07-01] MEDS: Insulin Lispro 100 UNIT/ML INSULN.PEN SC ×2 (08:04→11:28)
[2024-07-01 08:10] LABS: Bedside Glucose 160 mg/dL (74-106)
[2024-07-01] MEDS: Furosemide 40 MG/4 ML Vial IV (09:50)
[2024-07-01] MEDS: Latanoprost 0.005% 1 Bottle 1 DRP EACH EYE (09:54)
[2024-07-01] MEDS: guaiFENesin 1,200 MG Tablet 1200 MG PO (09:55)
[2024-07-01] MEDS: Senna/Docusate Sodium 1 Tablet 2 TABLET PO (09:55)
[2024-07-01] MEDS: Aspirin E.C. 81 MG Tablet PO (09:55)
[2024-07-01] MEDS: Metoprolol Tartrate 25 MG Tablet PO (09:55)
[2024-07-01] MEDS: Tamsulosin HCl 0.4 MG Capsule PO (09:55)
[2024-07-01] MEDS: Ranolazine 500 MG Tablet PO (09:56)
[2024-07-01] MEDS: Fenofibrate 145 MG Tablet PO (09:56)
[2024-07-01] MEDS: Clopidogrel Bisulfate 75 MG Tablet PO (09:56)
[2024-07-01] MEDS: Ezetimibe 10 MG Tablet PO (09:57)
[2024-07-01] MEDS: Cilostazol 50 MG Tablet 100 MG PO (10:25)
[2024-07-01] MEDS: Heparin Injection (Vial) 5,000 UNIT/ML VIAL 4000 UNIT IV (10:48)
[2024-07-01] MEDS: HEPARIN/D5w 25,000 UNITS 25,000 UNITS/250 ML IV.SOLN. 10 UNITS CONT INF (10:49)
--- NOTE | 2024-07-01 11:05 | EKG12_ITS ---
Test Reason : ARRYTHMIA Blood Pressure : / mmHG Vent. Rate : 079 BPM Atrial Rate : 079 BPM P-R Int : 144 ms QRS Dur : 082 ms QT Int : 372 ms P-R-T Axes : 052 097 183 degrees QTc Int : 426 ms Sinus rhythm with sinus arrhythmia with occasional Premature ventricular complexes Rightward axis ST & T wave abnormality, consider lateral ischemia Abnormal ECG When compared with ECG of 29-JUN-2024 03:05, Vent. rate has decreased BY 39 BPM Non-specific change in ST segment in Anterior leads T wave inversion now evident in Anterior leads Confirmed by Scott Campo ([id number]), editor managing director MIGDALIA GEORGE ([id number]) on 07/11/2024 1:16:56 PM Referred By: STEVE Confirmed By:Scott Campo
[2024-07-01 11:47] LABS: Bedside Glucose 288 mg/dL (74-106)
--- NOTE | 2024-07-01 13:09 | DCINST_ITS ---
Discharge Instructions Follow Up Care Test Results: Test results from this visit will be discussed in further detail at your follow- up appointment, if applicable. Discharge Plan Admission Admit Date/Time: 06/29/24 02:05 Attending Provider: Donald Duarte Primary Care Provider: Brad Renner Consulting Providers: Damian Pack; Gloria Andrade; Kolby Rodrigues Discharge Orders/Prescriptions Prescriptions: Continued cilostazol 100 MG tablet 100 mg PO BID clopidogrel 75 MG tablet 75 mg PO DAILY lisinopril 10 MG tablet 40 mg PO BID metoprolol tartrate 50 MG tablet 25 mg PO DAILY ezetimibe 10 MG tablet 10 mg PO DAILY cholecalciferol (vitamin D3) [Vitamin D3] 2,000 UNIT capsule 4,000 unit PO DAILY tamsulosin [Flomax] 0.4 MG capsule 0.4 mg PO DAILY amlodipine 10 MG tablet 10 mg PO DAILY isosorbide mononitrate 60 mg Tablet Extended Release 24 Hr 60 mg PO DAILY ranolazine 500 mg Tablet Extended Release 12 Hr 500 mg PO BID fenofibrate 160 mg Tablet 160 mg PO DAILY aspirin [Adult Low Dose Aspirin] 81 mg tablet,delayed release (DR/EC) 81 mg PO DAILY oxycodone-acetaminophen 5-325 mg tablet 1 tab PO TID PRN PRN (Reason: pain) nitroglycerin 0.4 mg tablet, sublingual 0.4 mg sublingual UD potassium citrate 15 mEq tablet extended release 15 meq PO DAILY latanoprost 0.005 % drops 1 drp ophthalmic (eye) DAILY Rx Instructions: each eye metformin 500 mg tablet 500 mg PO BID metoprolol tartrate 25 mg tablet 25 mg PO BID Referrals / Follow Up: Brad Renner MD [Primary Care Provider] - Disposition Disposition (needs filled in before D/C Order can be placed): [facility]
--- NOTE | 2024-07-01 13:13 | PCM.DC.SUM ---
Providers Date of Admission: 06/29/24 Primary Care Physician: Dr. Brad Renner MD Consultations 06/29/24 02:58 Consult: Cardiology Routine Consulting Provider: Damian Pack Reason for Consult: NSTEMI, HF EMERGENT Consult: No MD Notified: Yes Date Notified: 06/29/24 Time Notified: 02:08 Method of Notification: ED Physician Initiated Reason For Visit: HYPOXIA, NSTEMI, HF EXAC Diagnosis Discharge Diagnosis (1) NSTEMI, initial episode of care: Status: Acute Code(s): I21.4 - Non-ST elevation (NSTEMI) myocardial infarction (2) Acute heart failure: Status: Acute Code(s): I50.9 - Heart failure, unspecified Qualifiers: Heart failure type: unspecified Qualified Code(s): I50.9 - Heart failure, unspecified Medications at Discharge Home Medications cholecalciferol (vitamin D3) 50 mcg (2,000 unit) capsule (Vitamin D3) 4,000 unit PO DAILY sup[pliment 03/14/18 cilostazol 100 mg tablet 100 mg PO BID 03/14/18 clopidogrel 75 mg tablet 75 mg PO DAILY heart 03/14/18 ezetimibe 10 mg tablet 10 mg PO DAILY cholesterol 03/14/18 lisinopril 10 mg tablet 40 mg PO BID blood pressure 03/14/18 metoprolol tartrate 50 mg tablet 25 mg PO DAILY heart 03/14/18 tamsulosin 0.4 mg capsule (Flomax) 0.4 mg PO DAILY urine flow 11/06/18 amlodipine 10 mg tablet 10 mg PO DAILY 11/22/20 fenofibrate 160 mg tablet 160 mg PO DAILY high cholesterol 03/23/22 isosorbide mononitrate 60 mg tablet,extended release 24 hr 60 mg PO DAILY 03/23/22 ranolazine 500 mg tablet,extended release,12 hr 500 mg PO BID 03/23/22 aspirin 81 mg tablet,delayed release (Adult Low Dose Aspirin) 81 mg PO DAILY 06/29/24 latanoprost 0.005 % eye drops 1 drp ophthalmic (eye) DAILY 06/29/24 metformin 500 mg tablet 500 mg PO BID 06/29/24 metoprolol tartrate 25 mg tablet 25 mg PO BID 06/29/24 nitroglycerin 0.4 mg sublingual tablet 0.4 mg sublingual UD angina 06/29/24 oxycodone-acetaminophen 5 mg-325 mg tablet 1 tab PO TID PRN PRN pain 06/29/24 potassium citrate 15 mEq (1,620 mg) tablet,extended release 15 meq PO DAILY kidney stone prevention 06/29/24 Hospital Course Operations None Procedures 2-D Echocardiogram Summary of Care Provided Minutes Spent on Discharge: 33 Hospital Course: Per HPI: The patient is a 73 y/o M w/ PMHx: CKD stage III unclear subtype based on previous remote GFR trending, BPH, CAD s/p CABG 2011 CC, Hx AAA s/p repair 2016, PAD s/p peripheral PCI LLE, HTN, HLD, Diabetes mellitus type II, Former tobacco use, Morbid obesity, SACHA, Hx TIA, Chronic back pain s/p remote 1985 back surgery and follow-up laminectomy who presents to the [facility] ED on 06/28/24 initially secondary to history of worsening dyspnea reporting that he been seen the Monday prior and received a IR directed right shoulder triamcinolone/lidocaine injection per orthopedic surgery Dr. Escobar direction; however, he reported that later in the evening he had's onset of the dyspnea which is progressively worsened with cough but not productive with no recent fevers or chills or URI type symptoms prompting eventual ED evaluation. Upon ED arrival patient noted to be tachypneic with lung sounds coarse and mildly tachycardic requiring 4 L nasal cannula to maintain appropriate saturation. Workup in the ED included T96.8, heart rate 107, BP 125/82, respiratory rate 23, initially 93% on 3 L nasal cannula eventually increased to 4 L noted to be 95%, CBC with WBC 14.7, hemoglobin 14.4, platelet 322 with left shift and lymphopenia, BMP with chloride 109, BUN/ creatinine 47/2.07, GFR 34, glucose 246, lactic acid mildly elevated 2.4, troponin 6342 with repeat delta troponin 6046, BNP 654.8, chest x-ray with diffuse interstitial process with suspected pulmonary edema and evidence of cardiomegaly, rapid SARS COVID/influenza/RSV PCR negative, EKG with sinus tachycardia with PVCs with nonspecific ST changes with no acute evidence of ischemia. In the ED patient administered heparin bolus with drip, DuoNeb therapy and initially 500 cc normal saline bolus in addition to azithromycin 5 mg IV x 1 and Rocephin 1 g IV x 1. Patient placed on BiPAP. ABG, coags requested per ED and pending upon evaluation. ED discussed case with Dr. Pack who will follow. Discussed case with ED physician and requested Lasix IV be administered in the ED. Hospital Course: #1. Acute HF Exacerbation, with lactic acidosis suspected primarily secondary to hypoxemia possible due to non-STEMI: Patient is being admitted in ICU. Lactic acid 2.4. Troponin 6342, 12,985. BNP elevated. Patient has leukocytosis mild related to recent steroid injection, repeat CBC shows normal WBC count. Chest x-ray individually reviewed and shows diffuse venous congestion. CT abdomen in October 2020 also reviewed and does not show acute abnormality except atelectasis. Previous chest x-ray in 2018 although did not show acute abnormality. Most recent ECHO noted 04/02/2019 with LV systolic function normal, EF 65%, trivial TVI, trivial PVI, RVSP 34 mmHg. Repeat echo ordered. Ski Patrol Officer consulted VBG 7.33/mixed pCO2 40.6 on BiPAP. Discussed with the trip rider. On baby aspirin, Plavix, Zetia, metoprolol and ranolazine. 44 years of smoking, 2 pack/day. 06/30: 2D echo shows apical hypokinesis that appears new. Continue IV diuresis. Patient had frequent runs of NSVT and therefore started on digoxin.. Continue IV heparin drip. Plan for cardiac cath on Monday. Frequencies of NSVT has decreased/improved, IV lidocaine. Serum magnesium 2.3. Phosphorus 3.5. Lipid profile within normal limit. 07/01/2024: He has been having nonsustained V. tach and with the troponin elevation is history of CABG at an outside hospital, he request to be transferred to [facility]. I discussed the case with cardiology at [facility] And they accepted him in transfer. They did request that I restart him on his heparin drip today. He did get a bed and has been accepted therefore we will plan for discharge today. 2. Unclear possible KWABENA or progression of CKD: Admission BUN/Cr 47/2.07, last noted 11/23/20 creatinine 1.70, repeat creatinine 2.09. BUN/creatinine ratio 22. Anion gap 8. Bicarb 22 #3. Possible non-STEMI, unclear type I or type II with chronic CAD: Status post CABG 2011 at [facility], continue patient cilostazol, asa/Plavix, metoprolol, Ranexa home regimen, not on statin therapy secondary to side effects but on fenofibrate and ezetimibe. Hold lisinopril due to increased creatinine #4 PAD: Status post peripheral PCI left lower extremity. #5. Diabetes mellitus type II: Hold oral home regimen. Accu-Chek before meals and at bedtime with Humalog sliding scale coverage and hypoglycemia protocol. #6. Hypertension: Monitor BP. BP 130s/79. Rest patient already on medications as mentioned above #7. Hyperlipidemia: Lipid profile within normal limit #8. Chronic back pain, history of TIA, BPH, chronic AAA status postrepair 2016, SACHA on CPAP: Currently on on BiPAP 9. Morbid obesity: BMI 44.1 kg/m? 10. SACHA: CPAP nightly at home, currently on BIPAP as noted. DVT prophylaxis: Heparin drip. Physical Exam Narrative General: Alert, Oriented x3, Cooperative, No apparent distress HEENT: Atraumatic, PERRLA, EOMI, Normocephalic Oral: Moist Mucosa Neck: Supple, No JVD Lungs: Diminished, Normal air movement, No rhonchi, No wheeze, No rales Cardiovascular: Tachycardic, Regular Rhythm, Normal S1, Normal S2, No murmurs Abdomen: Soft, Non Tender, Non-Distended, No Hepato-splenomegaly Extremities: Edema, Capillary Refill Less than 3 Seconds Skin: No rashes, No breakdown Musculoskeletal: No Tenderness to Palpation of Joints or Extremities Neurological: No focal neurological deficits, Motor Exam 5/5 strength throughout, Sensory exam intact to light touch and pain Psych/Mental Status: Normal Affect, Appropriate Weight / BMI Weight Weight: 302 lb 7.587 oz Body Mass Index (BMI) 43.2 ABG / Lab / Microbiology Data 07/01/24 01:50 07/01/24 01:50 Laboratory: Laboratory Results - last 24 hr 06/30/24 16:04: POC Glucose 178 H 06/30/24 18:50: APTT 56.2 H 06/30/24 20:28: POC Glucose 199 H 07/01/24 01:50: WBC 8.8, RBC 4.58 L, Hgb 13.5, Hct 41.9, MCV 91.5, MCH 29.5, MCHC 32.2, RDW Std Deviation 44.3 H, RDW Coeff of Jarrod 13.2, Plt Count 257, MPV 10.5, Immature Gran % (Auto) 0.900, Neut % (Auto) 79.6 H, Lymph % (Auto) 5.3 L, Blaine % (Auto) 13.4 H, Eos % (Auto) 0.5, Baso % (Auto) 0.3, Absolute Neuts (auto) 7.0, Absolute Lymphs (auto) 0.47 L, Nucleated RBC % 0, APTT 61.8 H, Sodium 135 L, Potassium 4.2, Chloride 103, Carbon Dioxide 23.0, Anion Gap 9, BUN 61 H, Creatinine 2.34 H, Estim Creat Clear Calc 39.97, Est GFR (MDRD) Af Amer 35 L, Est GFR (MDRD) Non-Af 29 L, BUN/Creatinine Ratio 26.1 H, Glucose 174 H, Calcium 9.4 07/01/24 07:52: POC Glucose 160 H 07/01/24 11:27: POC Glucose 288 H Microbiology: Microbiology 06/28/24 23:35 Mucosa - Nose SARS-CoV-2, Influenza & RSV (PCR) - Final Meaningful Use Info Meaningful Use Meaningful Use Diagnoses (Choose all that apply): None applicable Ischemic Stroke Statin Dosing Therapy Reference: STATIN DOSE THERAPY REFERENCE: * Patients > 75 years receive moderate or high dose statin therapy. * Patients 75 years or YOUNGER should receive HIGH intensity statin dose unless contraindicated. You will be required to document reason for non-treatment if statin daily dose does not meet guidelines. HIGH DOSE STATIN THERAPY DAILY Atorvastatin > than or = to 40 mg Rosuvastatin > than or = to 20 mg Amlodipine + Atorvastatin > than or = to 2.5/40 mg Ezetimibe + Simvastatin 10/80 mg Simvastatin 80mg Discharge Plan Admission Admit Date/Time: 06/29/24 02:05 Attending Provider: Donald Duarte Primary Care Provider: Brad Renner Consulting Providers: Damian Pack; Gloria Andrade; Kolby Rodrigues Discharge Orders/Prescriptions Prescriptions: Continued cilostazol 100 MG tablet 100 mg PO BID clopidogrel 75 MG tablet 75 mg PO DAILY lisinopril 10 MG tablet 40 mg PO BID metoprolol tartrate 50 MG tablet 25 mg PO DAILY ezetimibe 10 MG tablet 10 mg PO DAILY cholecalciferol (vitamin D3) [Vitamin D3] 2,000 UNIT capsule 4,000 unit PO DAILY tamsulosin [Flomax] 0.4 MG capsule 0.4 mg PO DAILY amlodipine 10 MG tablet 10 mg PO DAILY isosorbide mononitrate 60 mg Tablet Extended Release 24 Hr 60 mg PO DAILY ranolazine 500 mg Tablet Extended Release 12 Hr 500 mg PO BID fenofibrate 160 mg Tablet 160 mg PO DAILY aspirin [Adult Low Dose Aspirin] 81 mg tablet,delayed release (DR/EC) 81 mg PO DAILY oxycodone-acetaminophen 5-325 mg tablet 1 tab PO TID PRN PRN (Reason: pain) nitroglycerin 0.4 mg tablet, sublingual 0.4 mg sublingual UD potassium citrate 15 mEq tablet extended release 15 meq PO DAILY latanoprost 0.005 % drops 1 drp ophthalmic (eye) DAILY Rx Instructions: each eye metformin 500 mg tablet 500 mg PO BID metoprolol tartrate 25 mg tablet 25 mg PO BID Referrals / Follow Up: Brad Renner MD [Primary Care Provider] - Disposition Disposition (needs filled in before D/C Order can be placed): Acute Care Hospital Charges/Coding Visit Charges Inpatient E&M: 87546 Disch Hosp >30min
[2024-07-01 13:55] LABS: Pathologist Review Reviewed
[2024-07-01] MEDS: Amiodarone 360 MG in Dextrose 5% Viaflo Bag 192.8 ML 16.7 MG CONT INF (14:13)
== END 2024-07-01 14:30 | disposition short-term general hospital (02) | DRG 280 ==
LOC: ED 23:08 → ICU 06-29 03:25
PROVIDERS: Internal Medicine; Specialist; Admitting Provider Family Medicine; Emergency Provider Surgery; PCP Family Medicine; Visit Provider Family Medicine
DX: I21.4 Non-ST elevation (NSTEMI) myocardial infarction (principal); I50.21 Acute systolic (congestive) heart failure; N17.9 Acute kidney failure, unspecified; Z68.41 Body mass index [BMI] 40.0-44.9, adult; I13.0 Hypertensive heart and chronic kidney disease with heart failure and stage 1 through stage 4 chronic kidney disease, or unspecified chronic kidney disease; E11.51 Type 2 diabetes mellitus with diabetic peripheral angiopathy without gangrene; N18.30 Chronic kidney disease, stage 3 unspecified; E66.01 Morbid (severe) obesity due to excess calories; G47.33 Obstructive sleep apnea (adult) (pediatric); E11.22 Type 2 diabetes mellitus with diabetic chronic kidney disease; E78.5 Hyperlipidemia, unspecified; I25.10 Atherosclerotic heart disease of native coronary artery without angina pectoris; N40.0 Benign prostatic hyperplasia without lower urinary tract symptoms; Z95.1 Presence of aortocoronary bypass graft; Z79.82 Long term (current) use of aspirin; Z79.899 Other long term (current) drug therapy; Z79.84 Long term (current) use of oral hypoglycemic drugs; Z79.01 Long term (current) use of anticoagulants; Z87.891 Personal history of nicotine dependence; Z86.73 Personal history of transient ischemic attack (TIA), and cerebral infarction without residual deficits; Z95.5 Presence of coronary angioplasty implant and graft; Z66 Do not resuscitate
CPT/HCPCS: 20610; 71045; 71046; 77002; 80048; 80053; 80061; 82803; 82962; 83036; 83605; 83735; 83880; 84100; 84145; 84443; 84484; 85025; 85610; 85730; 87631; 93005; 93306; 94002; 94640; 94668; 94762; 97162; 97166; 97530; 97802; 99285; J7040; Q9957; Q9967; A4216; C8929; J1940

== ENCOUNTER → 2025-07-17 | Outpatient (CLI) | payer MEDICARE, BC, SELFPAY | END | disposition home or self-care (01) | LOC: RAD 08:59 | PROVIDERS: PCP Family Medicine; Referring Provider Clinical Nurse Specialist Adult Health; Visit Provider Clinical Nurse Specialist Adult Health | DX: M25.511 Pain in right shoulder (principal) | CPT/HCPCS: 73030 ==